=== PATIENT | male | born 1965 | race Caucasian/White ===

== ENCOUNTER → 2018-03-25 19:00 | Outpatient (REF) | payer OTHER, SELFPAY ==
[2018-03-25 21:14] LABS: *AMPHETAMINES SCREEN URINE Negative (Negative); *BARBITURATES SCREEN URINE Negative (Negative); *BENZODIAZEPINES SCREEN URINE Negative (Negative); Cannabinoids THC Negative (Negative); Cocaine Screen,Urine Negative (Negative); METHADONE URINE SCREEN Negative (Negative); OPIATES URINE SCREEN POSITIVE (Negative)
[2018-03-25 21:18] LABS: Tricyclic Antidepressants Negative (Negative)
[2018-03-28 08:40] LABS: Codeine Negative ng/mL (Cutoff: 25); Dihydrocodeine Negative ng/mL (Cutoff: 25); Hydrocodone Negative ng/mL (Cutoff: 25); Hydromorphone Negative ng/mL (Cutoff: 25); Morphine Negative ng/mL (Cutoff: 25); Naloxone Negative ng/mL (Cutoff: 25); Norhydrocodone Negative ng/mL (Cutoff: 25); Noroxycodone 3494 ng/mL (Cutoff: 25); Noroxymorphone 235 ng/mL (Cutoff: 25); Opiates Interpretation Positive.
== END ==
LOC: LBN 19:00
PROVIDERS: PCP Family Medicine; Visit Provider Family Medicine
DX: G89.4 Chronic pain syndrome (principal); F11.20 Opioid dependence, uncomplicated
CPT/HCPCS: 80307; 80361

== ENCOUNTER 2018-07-08 14:20 | Outpatient (CLI) | payer OTHER, SELFPAY ==
[2018-07-08 16:41] LABS: ALT 64 U/L (12-78); AST 27 U/L (15-37); Alkaline Phosphatase 99 U/L (46-116); Anion Gap 10.5 mmol/L (3-11); BUN 30 mg/dL (7-18); Bilirubin, Total 0.4 mg/dL (0.2-1.0); CO2 25.5 mmol/L (21.0-32.0); CREATININE 1.12 mg/dL (0.70-1.30); Calcium 9.1 mg/dL (8.5-10.1); Chloride 102 mmol/L (98-107); Cholesterol 195 mg/dL (50-200); Glucose 157 mg/dL (70-100); HDL Cholesterol 30 mg/dL (40-60); LDL CHOLESTEROL 115 mg/dL (<100); Potassium 4.1 mmol/L (3.5-5.1); Sodium 138 mmol/L (136-145); Total Protein 7.1 g/dL (6.4-8.2); Triglyceride 424 mg/dL (30-150)
[2018-07-11 14:31] LABS: Testosterone, Free 3.95 ng/dL (3.87-14.7); Testosterone, Total 263 ng/dL (240-950)
== END 2018-07-08 14:40 ==
PROVIDERS: PCP Family Medicine; Visit Provider Family Medicine
DX: R74.0 Nonspecific elevation of levels of transaminase and lactic acid dehydrogenase [LDH] (principal); E78.5 Hyperlipidemia, unspecified; F11.90 Opioid use, unspecified, uncomplicated
CPT/HCPCS: 36415; 80053; 80061; 83721; 84402; 84403

== ENCOUNTER 2018-07-24 01:19 | Outpatient (CLI) | payer OTHER, SELFPAY ==
--- NOTE | 2018-07-24 13:50 | MERGE_ITS ---
*[facility]* *[facility]* [address] [place] [address] Date of study: 07/24/2018 Transthoracic Echocardiography M-mode, complete 2D, complete spectral Doppler, and color Doppler *STUDY CONCLUSIONS* Summary: 1. Left ventricle: The cavity size was normal. Systolic function was normal. The estimated ejection fraction was 60-65%. Diastolic parameters were normal for age. There was no evidence of elevated ventricular filling pressure by Doppler parameters. 2. Mitral valve: There was mild regurgitation. 3. Left atrium: The atrium was mildly dilated. 4. Right ventricle: The cavity size was mildly dilated. Systolic function was mildly reduced. 5. Atrial septum: No defect or patent foramen ovale was identified. 6. Pulmonary arteries: Pulmonary systolic pressure was in the range of 15mm Hg to 25mm Hg. 7. Inferior vena cava: The vessel was patent and normal in size. The respirophasic diameter changes were in the normal range (greater than or equal to 50%), consistent with normal central venous pressure. *PATIENT PRESENTATION* Height: 172.7cm ((68in) ) S/D Pressure: 114 / 60 Weight: 95.3kg ((209.6lb) ) BSA: 2.17m^2 Test start time: 01:50 PM. Test stop time: 02:50 PM. ORDERING Rhoda Montes REFERRING Rhoda Montes PERFORMING Unknown PERFORMING [facility] [employer] HELPER RT Sathish (R)(DIVINA), SAEID *PROCEDURE DATA* Procedure information: This study was interpreted by [facility]. Pertinent images and digital data are archived for permanent storage and are available for subsequent review. Study status: Routine. Transthoracic echocardiography. M-mode, complete 2D, complete spectral Doppler, and color Doppler. A Transthoracic Echocardiogram was performed. Scanning was performed from the parasternal, apical, subcostal, and suprasternal notch acoustic windows. Images were obtained using an [id number] cardiac ultrasound machine. Image quality was adequate. Study completion: The patient tolerated the procedure well. History: PMH: SOB *CARDIAC ANATOMY* Left ventricle: The cavity size was normal. Systolic function was normal. The estimated ejection fraction was 60-65%. Diastolic parameters were normal for age. There was no evidence of elevated ventricular filling pressure by Doppler parameters. Aortic valve: Trileaflet. Doppler: There was no stenosis. There was no regurgitation. VTI ratio of LVOT to aortic valve: 0.81. Valve area (VTI): 2.7cm^2. Indexed valve area (VTI): 1.3cm^2/m^2. Peak velocity ratio of LVOT to aortic valve: 0.76. Valve area (Vmax): 2.6cm^2. Indexed valve area (Vmax): 1.2cm^2/m^2. Mean velocity ratio of LVOT to aortic valve: 0.81. Valve area (Vmean): 2.7cm^2. Indexed valve area (Vmean): 1.3cm^2/m^2. Mean gradient (S): 3.7mm Hg. Peak gradient (S): 6.7mm Hg. Aorta: Aortic root: The aortic root was normal in size. Ascending aorta: The ascending aorta was normal in size. Mitral valve: Doppler: There was no evidence for stenosis. There was mild regurgitation. Valve area by pressure half-time: 4.1cm^2. Indexed valve area by pressure half-time: 1.9cm^2/m^2. Peak gradient (D): 2.9mm Hg. Left atrium: The atrium was mildly dilated. Atrial septum: No defect or patent foramen ovale was identified. Right ventricle: The cavity size was mildly dilated. Systolic function was mildly reduced. Pulmonic valve: Doppler: There was no evidence for stenosis. There was no significant regurgitation. Peak gradient (S): 4.2mm Hg. Tricuspid valve: Doppler: There was trivial regurgitation. Pulmonary artery: Poorly visualized. Pulmonary systolic pressure was in the range of 15mm Hg to 25mm Hg. Right atrium: Poorly visualized. Pericardium: There was no pericardial effusion. Systemic veins: Inferior vena cava: Well visualized. The vessel was patent and normal in size. The respirophasic diameter changes were in the normal range (greater than or equal to 50%), consistent with normal central venous pressure. Baseline ECG: with normal AV conduction. Measurements Left ventricle Value 08/08/2016 Reference LV ID, ED, PLAX 5.0 cm 3.5 - 6.0 LV ID, ES, PLAX 3.1 cm 2.1 - 4.0 LV PW thickness, ED, PLAX 1.0 cm --------- LV end-diastolic volume, 87 ml --------- 1-p A2C LV ejection fraction, 1-p 65 % --------- A2C LV end-diastolic volume, 82 ml --------- 1-p A4C LV ejection fraction, 1-p 57 % --------- A4C LV e', lateral 0.082 m/sec --------- LV E/e', lateral 10 --------- LV e', medial 0.098 m/sec --------- LV E/e', medial 9 --------- LV e', average 0.09 m/sec --------- LV E/e', average 9 --------- Ventricular septum Value 08/08/2016 Reference IVS thickness, ED, PLAX 1.1 cm --------- LVOT Value 08/08/2016 Reference LVOT ID, A-P 2.1 cm --------- LVOT area 3.4 cm^2 --------- LVOT peak velocity, S 0.98 m/sec --------- LVOT mean velocity, S 0.73 m/sec --------- LVOT VTI, S 23.5 cm --------- LVOT peak gradient, S 3.9 mm Hg --------- LVOT mean gradient, S 2.4 mm Hg --------- Stroke volume (SV), LVOT DP 79 ml --------- Stroke index (SV/bsa), LVOT 36 ml/m^2 --------- DP Aortic valve Value 08/08/2016 Reference Aortic valve peak velocity, 1.3 m/sec --------- S Aortic valve mean velocity, 0.91 m/sec --------- S Aortic valve VTI, S 29.0 cm --------- Aortic mean gradient, S 3.7 mm Hg 5 --------- Aortic peak gradient, S 6.7 mm Hg 9 --------- VTI ratio, LVOT/AV 0.81 0.68 --------- Aortic valve area, VTI 2.7 cm^2 --------- Velocity ratio, peak, 0.76 --------- LVOT/AV Aortic valve area, peak 2.6 cm^2 --------- velocity Velocity ratio, mean, 0.81 --------- LVOT/AV Aortic valve area, mean 2.7 cm^2 --------- velocity Aortic valve area/bsa, mean 1.3 cm^2/m^2 --------- velocity Aorta Value 08/08/2016 Reference Aortic root ID, ED 3.5 cm --------- Ascending aorta ID, A-P, S 2.7 cm --------- RVOT Value 08/08/2016 Reference RVOT VTI, S 16.1 cm --------- Left atrium Value 08/08/2016 Reference LA ID, A-P, ES 3.7 cm --------- LA ID/bsa, A-P 1.7 cm/m^2 <=2.2 LA area, ES, A2C 21 cm^2 --------- LA volume/bsa, ES, 1-p A4C 39 ml/m^2 35 --------- LA/aortic root ratio 1.06 --------- Mitral valve Value 08/08/2016 Reference Mitral E-wave peak velocity 0.84 m/sec --------- Mitral A-wave peak velocity 0.78 m/sec --------- Mitral deceleration time 186 ms 150 - 230 Mitral pressure half-time 54 ms --------- Mitral peak gradient, D 2.9 mm Hg --------- Mitral E/A ratio, peak 1.08 --------- Mitral valve area, PHT, DP 4.1 cm^2 --------- Pulmonary veins Value 08/08/2016 Reference Pulmonary vein peak 0.47 m/sec --------- velocity, S Pulmonary vein peak 0.43 m/sec --------- velocity, D Pulmonary vein velocity 1.09 --------- ratio, peak, S/D Pulmonary vein A-wave 0.33 m/sec --------- reversal peak velocity Tricuspid valve Value 08/08/2016 Reference Tricuspid regurg peak 2.6 m/sec --------- velocity Tricuspid peak RV-RA 27.5 mm Hg --------- gradient Pulmonic valve Value 08/08/2016 Reference Pulmonic peak gradient, S 4.2 mm Hg --------- Legend: (L) and (H) lillian values outside specified reference range. I have personally reviewed the images and have reviewed and edited the reported findings. Electronically signed by Jc Polo MD 07/24/2018 16:13
== END 2018-07-24 01:39 ==
PROVIDERS: PCP Family Medicine; Visit Provider Family Medicine
DX: R06.02 Shortness of breath (principal); I34.0 Nonrheumatic mitral (valve) insufficiency; I51.9 Heart disease, unspecified
CPT/HCPCS: 93306

== ENCOUNTER 2018-12-05 20:04 | Emergency (ER) | payer OTHER, SELFPAY ==
[2018-12-05 20:10] VITALS: BP 97/51; PULSE 87; RESP 20; TEMP 37.3; O2SAT 94
--- NOTE | 2018-12-05 20:40 | DI.RAD_ITS ---
SYMPTOMS/DIAGNOSIS: PAIN, LATERAL ANKLE INJURY RIGHT ANKLE: Three views. There is an oblique fracture seen at the distal metadiaphyseal junction of the right fibula. The fracture appears to lie almost 2 cm above the ankle joint. Minimal lateral displacement of the distal fracture is noted. No other fracture or dislocation is seen. There is mild soft tissue swelling about the ankle laterally. The bones are normally mineralized. IMPRESSION: Minimally displaced distal right fibular fracture as described.
--- NOTE | 2018-12-05 20:47 | DI.VRAD_ITS ---
EXAM: XR Right Ankle Complete, 3 or more Views EXAM DATE/TIME: 12/05/2018 8:28 PM CLINICAL HISTORY: 53 years old, male; Injury or trauma; Fall; Initial encounter; Swelling (edema); Right; Injury date: 12/05/2018; Injury details: Slipped in the mud, twisted the ankle TECHNIQUE: Imaging protocol: XR Right ankle. Views: 3 or more views. COMPARISON: No relevant prior studies available. FINDINGS: Bones/joints: There is an oblique fracture of the distal right fibula centered about 5 cm above the tip of the lateral malleolus, with slight 2 mm lateral displacement of the distal fragment but no angulation. Distal tibia intact. Talar dome intact. No ankle joint effusion. The visualized midfoot and hindfoot are intact. Soft tissues: Moderate lateral soft tissue swelling at the ankle. IMPRESSION: 1. Oblique minimally displaced fracture of the distal right fibular diaphysis. 2. Lateral soft tissue swelling. Dictated and Authenticated by: Trino Villeda MD. Ordering:BELLA Peralta MD
--- NOTE | 2018-12-05 21:36 | ED.GENADUL_ITS ---
Discharge Plan Disposition Patient Disposition: HOME Condition: Stable Discharge Details Chief Complaint: Laceration Clinical Impression: Fracture of distal end of right fibula, Laceration of finger of left hand Primary Care Provider: Rhoda Montes ED Provider: Fabian Pérez Home Meds and New Rx's Prescriptions: Continued aspirin 81 mg tablet,delayed release (DR/EC) 81 mg PO DAILY RF: 0 atorvastatin 80 mg tablet 80 mg PO HS Qty: 90 RF: 12 duloxetine [Cymbalta] 60 mg capsule,delayed release(DR/EC) 60 mg PO DAILY Qty: 90 RF: 12 isosorbide mononitrate 30 mg tablet extended release 24 hr 30 mg PO DAILY Qty: 90 RF: 12 metaxalone 800 mg tablet 800 mg PO TID Qty: 90 RF: 12 oxycodone-acetaminophen [Endocet] 10-325 mg tablet 1 tab PO QID MDD 4 Qty: 106 RF: 0 NARCOTIC CONTRACT RF: 0 nitroglycerin 0.4 MG tablet, sublingual 0.4 mg Sublingual PRN PRNQty: 25 RF: 12 lisinopril-hydrochlorothiazide 1 EACH tablet 1 tab-cap PO DAILY Qty: 90 RF: 12 potassium chloride 20 mEq tablet,ER particles/crystals 40 meq PO BID Qty: 360 RF: 12 metoprolol succinate 50 mg tablet extended release 24 hr 50 mg PO DAILY Qty: 90 RF: 1 Discharge Instructions Instructions: Leg Fracture (ED), Finger Laceration (ED) Additional Instructions: Please keep walking boot on at all times and remain nonweightbearing for the next 3 days. Call the orthopedic office on Saturday for arrangement of follow-up appointment and further treatment as needed Stand Alone Forms: Work Release Referrals: Js Garcia MD [ [facility] STAFF PHYSICIAN] - (Call the office on Saturday for arrangement of follow appointment. ) Discharge Data Discharge Date/Time-TO BE ENTERED AT DEPARTURE: 12/05/18 21:46 Medical Decision Making Patient presenting to the emergency department for chief complaint of right ankle injury. 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 He reports that he felt a significant pop to the lateral aspect of his leg. Afterwards he was unable to bear weight. Physical exam does show distal fibular deformity with swelling and tenderness to the distal fibular and the lateral malleolus. Patient does state prior to this he had cut his left index finger with a knife. His left index finger has full range of motion normal cap refill normal sensation but a 1 cm laceration above the PIP. Tetanus was greater than 5 years ago and given that patient was butchering pigs I do feel that giving patient tetanus is appropriate and one was ordered. Radiological imaging was ordered for the ankle. Patient denied any need for pain medication at this time. Pending radiological imaging patient consented to wound repair. See procedure note for wound repair. Three 4-0 Ethilon sutures were used. Review of radiological imaging shows a minimally displaced distal fibular fracture. Patient reassessed and continues to state no other discomfort to the proximal tibia or fibula and no other bony tenderness was noted except to the distal fibula. Patient placed in a walking boot and informed he should be nonweightbearing until speaking with orthopedist. Patient states he has crutches so patient fitted with walking boot. Patient already on narcotic pain medication and states no other need for other pain medication. Given work note to excuse him for work for the next week. Return precautions were discussed. Patient placed upon Ortho follow-up list for review of imaging and patient states understanding to call the office on Saturday for arrangement of follow-up appointment and any further instructions pending reassessment. After discussion of diagnosis and plan of care patient has no further needs, questions, or concerns and states clear understanding to return to the emergency department for any worsening symptoms. HPI General Mode of arrival: wheelchair . Date/Time Provider Initiated Documentation: 12/05/18 20:11 . Limitations to Documentation: no limitations . Information obtained by: patient, family and RN notes reviewed . History of Present Illness 53 year old M presents to the emergency department with the chief complaint of right ankle injury, described as moderate, Patient started experiencing this hour(s) (1) and it has been constant. No relieving factors improve symptom(s), Patient did receive the following treatments prior to arrival, none Related Data Home Medications Medication Instructions Recorded Confirmed Narcotic Contract 06/23/13 09/30/18 nitroglycerin 0.4 mg SUBLINGUAL PRN PRN #25 12/18/16 12/07/18 tab-cap lisinopril-hydrochlorothiazide 1 tab-cap PO DAILY #90 tab-cap 03/25/18 12/07/18 aspirin 81 mg tablet,delayed 81 mg PO DAILY 07/07/18 12/07/18 release atorvastatin 80 mg tablet 80 mg PO HS #90 tab-cap 07/07/18 12/07/18 duloxetine 60 mg capsule,delayed 60 mg PO DAILY #90 tab-cap 07/07/18 12/07/18 release isosorbide mononitrate ER 30 mg 30 mg PO DAILY #90 tab 07/07/18 12/07/18 tablet,extended release 24 hr metaxalone 800 mg tablet 800 mg PO TID #90 tab-cap 07/07/18 12/07/18 oxycodone-acetaminophen 10 mg-325 1 tab PO QID #106 tab MDD 4 09/30/18 12/07/18 mg tablet potassium chloride ER 20 mEq 40 meq PO BID #360 tab-cap 10/28/18 12/07/18 tablet,extended release(part/cryst) metoprolol succinate ER 50 mg 50 mg PO DAILY #90 tab 11/20/18 12/07/18 tablet,extended release 24 hr Previous Rx's Medication Instructions Recorded lisinopril-hydrochlorothiazide 1 tab-cap PO DAILY #90 tab-cap 03/25/18 atorvastatin 80 mg tablet 80 mg PO HS #90 tab-cap 07/07/18 duloxetine 60 mg capsule,delayed 60 mg PO DAILY #90 tab-cap 07/07/18 release isosorbide mononitrate ER 30 mg 30 mg PO DAILY #90 tab 07/07/18 tablet,extended release 24 hr metaxalone 800 mg tablet 800 mg PO TID #90 tab-cap 07/07/18 oxycodone-acetaminophen 10 mg-325 1 tab PO QID #106 tab MDD 4 09/30/18 mg tablet potassium chloride ER 20 mEq 40 meq PO BID #360 tab-cap 10/28/18 tablet,extended release(part/cryst) metoprolol succinate ER 50 mg 50 mg PO DAILY #90 tab 11/20/18 tablet,extended release 24 hr Allergies Allergy/AdvReac Type Severity Reaction Status Date / Time ibuprofen AdvReac Hematuria Unverified 12/07/18 02:48 General Stated Complaint: Orthopedic YAMILE: 4 Review of Systems Cardiovascular Denies syncope Musculoskeletal Reports as per HPI, Reports numbness (mild) and Denies tingling Integumentary/Breasts Denies rash, Denies sores and Reports wounds (left index finger laceration) Neurologic Denies syncope, Reports numbness (mild) and Denies tingling PFSH Medical History Polyp of colon (Chronic 08/28/13) Impaired fasting glucose (Chronic 11/10/03) Hyperlipidemia (Chronic 11/10/03) Essential hypertension (Chronic 06/09/13) Elev transaminase/LDH (Chronic 05/11/03) Depressive disorder (Chronic 10/04/08) Degeneration of cervical intervertebral disc (Chronic 09/11/02) Chronic pain syndrome (Chronic 03/27/12) Chronic obstructive lung disease (Chronic 06/11/99) Chest pain on exertion (Resolved 07/20/16) COPD (chronic obstructive pulmonary disease) Chronic pain syndrome Degeneration of cervical intervertebral disc HTN (hypertension) Surgical History Colonoscopy - MAC (01/25/17) FINGER REPAIR (~2010) KNEE REPAIR (~1981) Repair of inguinal hernia (~1978) Family History Mother Diabetes Personal history of malignant neoplasm Heart disease Hyperlipidemia Stroke Father Heart disease Hyperlipidemia Sister No problems noted. Sister No problems noted. Sister No problems noted. Brother No problems noted. Grandfather Heart disease Grandfather Heart disease Grandmother Heart disease Stroke Grandmother Heart disease Stroke Social History Smoking/Tobacco Use Status: Former Tobacco Use Alcohol Intake: never Drug use: Current Sobriety Substance use type: does not use Do you feel safe at home: Yes Do you feel safe in your relationship?: Yes Exam Const General: cooperative and no acute distress Orientation: alert, awake and oriented x3 Resp Effort & Inspection: normal respiratory effort and able to speak in complete sentences Cardio Rate: regular rate Rhythm: regular rhythm Extrem Left upper extremity: hand Details: normal capillary refill, neuromotor exam normal, neurosensory exam normal, tendon exam normal, normal ROM of fingers and laceration (1 cm over PIP) Right lower extremity: knee Details: normal to inspection and normal ROM; no tenderness, lower leg Details: deformity Location: of the distal lower leg (fib saeid), ankle Details: tenderness Location: of the lateral malleolus, swelling Details: laterally and abnormal ROM Details: pain with active ROM and with range as follows (No movement to medial or lateral, dorsiflexion plantarflexion normal); no lacerations and no ecchymosis and foot Details: normal capillary refill (3 sec), normal to inspection, toes with normal ROM and vascular exam Details: dorsalis pedis pulse present and posterior tibial pulse present; no tenderness Course Vital Signs Temperature 37.3 C 12/05/18 20:10 Pulse 87 12/05/18 20:10 Respiratory Rate 20 12/05/18 20:10 Blood Pressure 97/51 L 12/05/18 20:10 Pulse Oximetry 94 L 12/05/18 20:10 Temperature 37.3 C 12/05/18 20:10 Temperature Source Temporal Artery Scan 12/05/18 20:10 Pulse 87 12/05/18 20:10 Respiratory Rate 20 12/05/18 20:10 Respiratory Effort Non-Labored 12/05/18 20:10 Blood Pressure 97/51 L 12/05/18 20:10 Blood Pressure Position Sitting 12/05/18 20:10 Pulse Oximetry 94 L 12/05/18 20:10 Oxygen Delivery Method Room Air 12/05/18 20:10 Oxygen Flow Rate 0 12/05/18 20:10 Pain Level 3 12/05/18 20:20 Procedures Laceration left index: Site: hand (index finger) Side (If applicable): left Size (cm): 1 Description: linear and clean Depth: simple, single layer Local Anesthetic: Lidocaine 1% (digital block) Amount of anesthesia used (mL): 4 Pre-repair: wound explored, irrigated extensively and deep structures intact Skin layer closed with: nylon Size (cm): 4-0 Number of sutures: 3 Technique: simple, interrupted
[2018-12-07 05:58] VITALS: BP 140/82; PULSE 91; RESP 20; O2SAT 95
== END 2018-12-05 21:46 | disposition home or self-care (01) ==
PROVIDERS: Emergency Provider Nurse Practitioner Family; PCP Family Medicine
DX: S82.491A Other fracture of shaft of right fibula, initial encounter for closed fracture (principal); X50.9XXA Other and unspecified overexertion or strenuous movements or postures, initial encounter; S61.211A Laceration without foreign body of left index finger without damage to nail, initial encounter; W26.0XXA Contact with knife, initial encounter; I10 Essential (primary) hypertension; J44.9 Chronic obstructive pulmonary disease, unspecified; Z87.891 Personal history of nicotine dependence
CPT/HCPCS: 12001; 27786; 90471; 73610; L4361

== ENCOUNTER 2018-12-07 02:28 | Emergency (ER) | payer OTHER, SELFPAY ==
--- NOTE | 2018-12-07 02:45 | DI.RAD_ITS ---
SYMPTOMS/DIAGNOSIS: PAIN, S/P FALL YESTERDAY RIGHT KNEE: Three views. There are moderate degenerative changes seen about the right knee, particularly the patellofemoral joint. There are osseous fragments seen about the patella particularly inferiorly which may reflect old injury. There is a small suprapatellar joint effusion. Vascular calcifications are seen in the soft tissues. IMPRESSION: 1. No acute fracture or dislocation. 2. Small joint effusion. 3. Moderate degenerative changes and probable post traumatic changes about the right knee.
[2018-12-07 02:46] VITALS: BP 128/63; PULSE 93; RESP 24; TEMP 37.1; O2SAT 97
--- NOTE | 2018-12-07 02:46 | W.ED.GENAD ---
Discharge Plan Disposition Patient Disposition: [facility] Condition: Stable Discharge Details Chief Complaint: Orthopedic Clinical Impression: Fracture of right fibula Primary Care Provider: Rhoda Montes ED Provider: Jc Zhu Home Meds and New Rx's Prescriptions: No Action aspirin 81 mg tablet,delayed release (DR/EC) 81 mg PO DAILY RF: 0 atorvastatin 80 mg tablet 80 mg PO HS Qty: 90 RF: 12 duloxetine [Cymbalta] 60 mg capsule,delayed release(DR/EC) 60 mg PO DAILY Qty: 90 RF: 12 isosorbide mononitrate 30 mg tablet extended release 24 hr 30 mg PO DAILY Qty: 90 RF: 12 metaxalone 800 mg tablet 800 mg PO TID Qty: 90 RF: 12 oxycodone-acetaminophen [Endocet] 10-325 mg tablet 1 tab PO QID MDD 4 Qty: 106 RF: 0 NARCOTIC CONTRACT RF: 0 nitroglycerin 0.4 MG tablet, sublingual 0.4 mg Sublingual PRN PRNQty: 25 RF: 12 lisinopril-hydrochlorothiazide 1 EACH tablet 1 tab-cap PO DAILY Qty: 90 RF: 12 potassium chloride 20 mEq tablet,ER particles/crystals 40 meq PO BID Qty: 360 RF: 12 metoprolol succinate 50 mg tablet extended release 24 hr 50 mg PO DAILY Qty: 90 RF: 1 Medical Decision Making 53 yo male who was seen on 12/05 and dx'd with a right distal fibula fracture comes in with increasing pain in his knee. He has been wearing a walking boot since and due to the increasing pain despite prescribed oxycodone from pcp has had pain so came here. He does have noted swelling of the right knee with pain to palpation to the medial joint line. He has no significant swelling of the calf and no calf tenderness, and 2+ dp/pt pulses. Will xray the knee to evaluate for fx xray negative on my read, given location of pain and degree of pain will obtain CT to eval for tibial plateua fx still waiting for radiology reports but pt despite 4mg of dilaudid im is still in significant amount of pain and does have pain with passive dorsiflexion of the ankle and does have some numbness of the lateral aspect of the lower leg. 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 Still no rashes or crepitus on exam Contacted [facility] again and they are going to repage orthopedics for a consult Spoke with Dr. Pittman from ortho and will see pt in their ED for an evaluation. Dr. Mcdonald from the ED is the accepting provider in transfer. Pt remains in significant pain. I did advise the pt that if ortho felt this wasn't compartment syndrome he would likely be d/c'd and and pt understand this. All pt's questions answered prior to transfer Differential Diagnosis acl injury, tibial plateu fx HPI General Mode of arrival: wheelchair. Date/Time Provider Initiated Documentation: 12/07/18 02:33. Limitations to Documentation: no limitations. Information obtained by: patient. History of Present Illness 53 year old M presents to the emergency department with the chief complaint of right knee pain, described as severe, Quality is described as stabbing, and is localized to the right and lower extremity. Patient started experiencing this day(s) (1) and it has been constant. No relieving factors improve symptom(s), No exacerbating factors reported . Related Data Home Medications Medication Instructions Recorded Confirmed Narcotic Contract 06/23/13 09/30/18 nitroglycerin 0.4 mg SUBLINGUAL PRN PRN #25 12/18/16 12/05/18 tab-cap lisinopril-hydrochlorothiazide 1 tab-cap PO DAILY #90 tab-cap 03/25/18 12/05/18 aspirin 81 mg tablet,delayed 81 mg PO DAILY 07/07/18 12/05/18 release atorvastatin 80 mg tablet 80 mg PO HS #90 tab-cap 07/07/18 12/05/18 duloxetine 60 mg capsule,delayed 60 mg PO DAILY #90 tab-cap 07/07/18 12/05/18 release isosorbide mononitrate ER 30 mg 30 mg PO DAILY #90 tab 07/07/18 12/05/18 tablet,extended release 24 hr metaxalone 800 mg tablet 800 mg PO TID #90 tab-cap 07/07/18 12/05/18 oxycodone-acetaminophen 10 mg-325 1 tab PO QID #106 tab MDD 4 09/30/18 12/05/18 mg tablet potassium chloride ER 20 mEq 40 meq PO BID #360 tab-cap 10/28/18 12/05/18 tablet,extended release(part/cryst) metoprolol succinate ER 50 mg 50 mg PO DAILY #90 tab 11/20/18 12/05/18 tablet,extended release 24 hr Previous Rx's Medication Instructions Recorded lisinopril-hydrochlorothiazide 1 tab-cap PO DAILY #90 tab-cap 03/25/18 atorvastatin 80 mg tablet 80 mg PO HS #90 tab-cap 07/07/18 duloxetine 60 mg capsule,delayed 60 mg PO DAILY #90 tab-cap 07/07/18 release isosorbide mononitrate ER 30 mg 30 mg PO DAILY #90 tab 07/07/18 tablet,extended release 24 hr metaxalone 800 mg tablet 800 mg PO TID #90 tab-cap 07/07/18 oxycodone-acetaminophen 10 mg-325 1 tab PO QID #106 tab MDD 4 09/30/18 mg tablet potassium chloride ER 20 mEq 40 meq PO BID #360 tab-cap 10/28/18 tablet,extended release(part/cryst) metoprolol succinate ER 50 mg 50 mg PO DAILY #90 tab 11/20/18 tablet,extended release 24 hr Allergies Allergy/AdvReac Type Severity Reaction Status Date / Time ibuprofen AdvReac Hematuria Unverified 12/07/18 02:48 General YAMILE: 4 Review of Systems Review of Systems All systems reviewed & are unremarkable except as noted in HPI and below Constitutional Denies chills, Denies fever(s) and Denies weakness Cardiovascular Denies chest pain and Denies dyspnea Respiratory Denies cough and Denies dyspnea Gastrointestinal Denies abdominal pain, Denies nausea and Denies vomiting Integumentary/Breasts Denies rash Neurologic Denies weakness [facility] Medical History Polyp of colon (Chronic 08/28/13) Impaired fasting glucose (Chronic 11/10/03) Hyperlipidemia (Chronic 11/10/03) Essential hypertension (Chronic 06/09/13) Elev transaminase/LDH (Chronic 05/11/03) Depressive disorder (Chronic 10/04/08) Degeneration of cervical intervertebral disc (Chronic 09/11/02) Chronic pain syndrome (Chronic 03/27/12) Chronic obstructive lung disease (Chronic 06/11/99) Chest pain on exertion (Resolved 07/20/16) COPD (chronic obstructive pulmonary disease) Chronic pain syndrome Degeneration of cervical intervertebral disc HTN (hypertension) Surgical History Colonoscopy - MAC (01/25/17) FINGER REPAIR (~2010) KNEE REPAIR (~1981) Repair of inguinal hernia (~1978) Family History Mother Diabetes Personal history of malignant neoplasm Heart disease Hyperlipidemia Stroke Father Heart disease Hyperlipidemia Sister No problems noted. Sister No problems noted. Sister No problems noted. Brother No problems noted. Grandfather Heart disease Grandfather Heart disease Grandmother Heart disease Stroke Grandmother Heart disease Stroke Social History Smoking/Tobacco Use Status: Former Tobacco Use Alcohol Intake: never Drug use: Current Sobriety Substance use type: does not use Do you feel safe at home: Yes Do you feel safe in your relationship?: Yes Exam Const General: no acute distress Orientation: alert HENMT Head: normal to inspection Ears: external ears normal General nose exam: external nose normal Mouth: moist mucous membranes Eyes General: appearance normal, both eyes and all related structures Neck Neck: normal visual inspection Resp Effort & Inspection: normal respiratory effort and able to speak in complete sentences Cardio Rate: regular rate Skin General skin exam: no rashes or lesions noted Neuro General: alert and oriented x3 Extrem General: normal capillary refill Psych Mental Status: mental status grossly normal
--- NOTE | 2018-12-07 02:49 | ED.GENADUL_ITS ---
Discharge Plan Disposition Patient Disposition: [facility] Condition: Stable Discharge Details Chief Complaint: Orthopedic Clinical Impression: Fracture of right fibula Primary Care Provider: Rhoda Montes ED Provider: Jc Zhu Home Meds and New Rx's Prescriptions: No Action aspirin 81 mg tablet,delayed release (DR/EC) 81 mg PO DAILY RF: 0 atorvastatin 80 mg tablet 80 mg PO HS Qty: 90 RF: 12 duloxetine [Cymbalta] 60 mg capsule,delayed release(DR/EC) 60 mg PO DAILY Qty: 90 RF: 12 isosorbide mononitrate 30 mg tablet extended release 24 hr 30 mg PO DAILY Qty: 90 RF: 12 metaxalone 800 mg tablet 800 mg PO TID Qty: 90 RF: 12 oxycodone-acetaminophen [Endocet] 10-325 mg tablet 1 tab PO QID MDD 4 Qty: 106 RF: 0 NARCOTIC CONTRACT RF: 0 nitroglycerin 0.4 MG tablet, sublingual 0.4 mg Sublingual PRN PRNQty: 25 RF: 12 lisinopril-hydrochlorothiazide 1 EACH tablet 1 tab-cap PO DAILY Qty: 90 RF: 12 potassium chloride 20 mEq tablet,ER particles/crystals 40 meq PO BID Qty: 360 RF: 12 metoprolol succinate 50 mg tablet extended release 24 hr 50 mg PO DAILY Qty: 90 RF: 1 Medical Decision Making 53 yo male who was seen on 12/05 and dx'd with a right distal fibula fracture comes in with increasing pain in his knee. He has been wearing a walking boot since and due to the increasing pain despite prescribed oxycodone from pcp has had pain so came here. He does have noted swelling of the right knee with pain to palpation to the medial joint line. He has no significant swelling of the calf and no calf tenderness, and 2+ dp/pt pulses. Will xray the knee to evaluate for fx xray negative on my read, given location of pain and degree of pain will obtain CT to eval for tibial plateua fx still waiting for radiology reports but pt despite 4mg of dilaudid im is still in significant amount of pain and does have pain with passive dorsiflexion of the ankle and does have some numbness of the lateral aspect of the lower leg. Given degree of pain he is having will consult [place] [facility] [place] as we do not have orthopedics balloon maker here today still waiting for orthopedics, no relief of pain with the patient. Still no rashes or crepitus on exam Contacted [facility] again and they are going to repage orthopedics for a consult Spoke with Dr. Pittman from ortho and will see pt in their ED for an evaluation. Dr. Mcdonald from the ED is the accepting provider in transfer. Pt remains in significant pain. I did advise the pt that if ortho felt this wasn't compartment syndrome he would likely be d/c'd and and pt understand this. All pt's questions answered prior to transfer Differential Diagnosis acl injury, tibial plateu fx HPI General Mode of arrival: wheelchair . Date/Time Provider Initiated Documentation: 12/07/18 02:33 . Limitations to Documentation: no limitations . Information obtained by: patient . History of Present Illness 53 year old M presents to the emergency department with the chief complaint of right knee pain, described as severe, Quality is described as stabbing, and is localized to the right and lower extremity. Patient started experiencing this day(s) (1) and it has been constant. No relieving factors improve symptom(s), No exacerbating factors reported . Related Data Home Medications Medication Instructions Recorded Confirmed Narcotic Contract 06/23/13 09/30/18 nitroglycerin 0.4 mg SUBLINGUAL PRN PRN #25 12/18/16 12/05/18 tab-cap lisinopril-hydrochlorothiazide 1 tab-cap PO DAILY #90 tab-cap 03/25/18 12/05/18 aspirin 81 mg tablet,delayed 81 mg PO DAILY 07/07/18 12/05/18 release atorvastatin 80 mg tablet 80 mg PO HS #90 tab-cap 07/07/18 12/05/18 duloxetine 60 mg capsule,delayed 60 mg PO DAILY #90 tab-cap 07/07/18 12/05/18 release isosorbide mononitrate ER 30 mg 30 mg PO DAILY #90 tab 07/07/18 12/05/18 tablet,extended release 24 hr metaxalone 800 mg tablet 800 mg PO TID #90 tab-cap 07/07/18 12/05/18 oxycodone-acetaminophen 10 mg-325 1 tab PO QID #106 tab MDD 4 09/30/18 12/05/18 mg tablet potassium chloride ER 20 mEq 40 meq PO BID #360 tab-cap 10/28/18 12/05/18 tablet,extended release(part/cryst) metoprolol succinate ER 50 mg 50 mg PO DAILY #90 tab 11/20/18 12/05/18 tablet,extended release 24 hr Previous Rx's Medication Instructions Recorded lisinopril-hydrochlorothiazide 1 tab-cap PO DAILY #90 tab-cap 03/25/18 atorvastatin 80 mg tablet 80 mg PO HS #90 tab-cap 07/07/18 duloxetine 60 mg capsule,delayed 60 mg PO DAILY #90 tab-cap 07/07/18 release isosorbide mononitrate ER 30 mg 30 mg PO DAILY #90 tab 07/07/18 tablet,extended release 24 hr metaxalone 800 mg tablet 800 mg PO TID #90 tab-cap 07/07/18 oxycodone-acetaminophen 10 mg-325 1 tab PO QID #106 tab MDD 4 09/30/18 mg tablet potassium chloride ER 20 mEq 40 meq PO BID #360 tab-cap 10/28/18 tablet,extended release(part/cryst) metoprolol succinate ER 50 mg 50 mg PO DAILY #90 tab 11/20/18 tablet,extended release 24 hr Allergies Allergy/AdvReac Type Severity Reaction Status Date / Time ibuprofen AdvReac Hematuria Unverified 12/07/18 02:48 General YAMILE: 4 Review of Systems Review of Systems All systems reviewed & are unremarkable except as noted in HPI and below Constitutional Denies chills, Denies fever(s) and Denies weakness Cardiovascular Denies chest pain and Denies dyspnea Respiratory Denies cough and Denies dyspnea Gastrointestinal Denies abdominal pain, Denies nausea and Denies vomiting Integumentary/Breasts Denies rash Neurologic Denies weakness [facility] Medical History Polyp of colon (Chronic 08/28/13) Impaired fasting glucose (Chronic 11/10/03) Hyperlipidemia (Chronic 11/10/03) Essential hypertension (Chronic 06/09/13) Elev transaminase/LDH (Chronic 05/11/03) Depressive disorder (Chronic 10/04/08) Degeneration of cervical intervertebral disc (Chronic 09/11/02) Chronic pain syndrome (Chronic 03/27/12) Chronic obstructive lung disease (Chronic 06/11/99) Chest pain on exertion (Resolved 07/20/16) COPD (chronic obstructive pulmonary disease) Chronic pain syndrome Degeneration of cervical intervertebral disc HTN (hypertension) Surgical History Colonoscopy - MAC (01/25/17) FINGER REPAIR (~2010) KNEE REPAIR (~1981) Repair of inguinal hernia (~1978) Family History Mother Diabetes Personal history of malignant neoplasm Heart disease Hyperlipidemia Stroke Father Heart disease Hyperlipidemia Sister No problems noted. Sister No problems noted. Sister No problems noted. Brother No problems noted. Grandfather Heart disease Grandfather Heart disease Grandmother Heart disease Stroke Grandmother Heart disease Stroke Social History Smoking/Tobacco Use Status: Former Tobacco Use Alcohol Intake: never Drug use: Current Sobriety Substance use type: does not use Do you feel safe at home: Yes Do you feel safe in your relationship?: Yes Exam Const General: no acute distress Orientation: alert HENMT Head: normal to inspection Ears: external ears normal General nose exam: external nose normal Mouth: moist mucous membranes Eyes General: appearance normal, both eyes and all related structures Neck Neck: normal visual inspection Resp Effort & Inspection: normal respiratory effort and able to speak in complete sentences Cardio Rate: regular rate Skin General skin exam: no rashes or lesions noted Neuro General: alert and oriented x3 Extrem General: normal capillary refill Psych Mental Status: mental status grossly normal
[2018-12-07] MEDS: HYDROmorphone 2 MG/ML VIAL IM ×2 (02:53→04:13)
--- NOTE | 2018-12-07 03:05 | DI.CT_ITS ---
SYMPTOMS/DIAGNOSIS: PAIN, S/P FALL CT SCAN OF THE RIGHT KNEE: Multiple contiguous axial images of the right knee were obtained. Sagittal and coronal reformatted images were evaluated on the Siemens workstation. No acute fracture or dislocation of the right knee is identified. There are moderate degenerative changes seen about the right knee. There are several well corticated osseous fragments seen around the patella likely reflecting prior injury. There is a small joint effusion present.
--- NOTE | 2018-12-07 04:12 | DI.VRAD_ITS ---
EXAM: CT Right Lower Extremity Without Contrast, Knee EXAM DATE/TIME: 12/07/2018 3:07 AM CLINICAL HISTORY: 53 years old, male; Pain; Knee; Right; Patient HX: Twisting injury 12/06 TECHNIQUE: Imaging protocol: CT of the Right lower extremity without contrast was performed. Exam focused on the knee. Coronal and sagittal reformatted images were created and reviewed. COMPARISON: CR XR knee RT 3V AP,lat,mayank 12/07/2018 3:01 AM FINDINGS: Bones/joints: Small knee joint effusion. Chondrocalcinosis. Moderate degenerative change. Abnormal appearance to the patella with multiple bone fragments around it may be from prior trauma. Soft tissues: Unremarkable.. IMPRESSION: No evidence of acute fracture. Knee joint effusion. Moderate degenerative changes. Dictated and Authenticated by: Kit Mayorga MD. Ordering:KASIA Greene MD
--- NOTE | 2018-12-07 04:13 | DI.VRAD_ITS ---
EXAM: XR Right Knee, 3 Views EXAM DATE/TIME: 12/07/2018 2:46 AM CLINICAL HISTORY: 53 years old, male; Knee; Right; Patient HX: Pain after twisting injury 12/06 TECHNIQUE: Imaging protocol: XR Right knee. Views: 3 views. COMPARISON: No relevant prior studies available. FINDINGS: Bones/joints: Moderate degenerative change. Old patella fracture deformity. Knee joint effusion. No evidence of acute fracture. Soft tissues: Unremarkable. IMPRESSION: Moderate degenerative change. Knee joint effusion. Dictated and Authenticated by: Kit Mayorga MD. Ordering:KASIA Greene MD
[2018-12-07 04:38] VITALS: BP 125/80; PULSE 97; RESP 20; O2SAT 94
[2018-12-07 04:41] VITALS: BP 125/80; PULSE 97; RESP 20
--- NOTE | 2018-12-07 04:41 | NUR.NOTE ---
Nursing Note: patient repositioned to right side, resting comfortably at present. with patient.
[2018-12-07 05:18] VITALS: BP 140/82; PULSE 91; RESP 20; TEMP 37.5; O2SAT 95
== END 2018-12-07 05:42 | disposition short-term general hospital (02) ==
PROVIDERS: Emergency Provider Emergency Medicine; PCP Family Medicine
DX: S82.831A Other fracture of upper and lower end of right fibula, initial encounter for closed fracture (principal); M25.461 Effusion, right knee; W01.0XXA Fall on same level from slipping, tripping and stumbling without subsequent striking against object, initial encounter; I10 Essential (primary) hypertension; M17.9 Osteoarthritis of knee, unspecified; J44.9 Chronic obstructive pulmonary disease, unspecified; Z87.891 Personal history of nicotine dependence
CPT/HCPCS: 29515; 73562; 96372; 99285; 73700; 99284; L1830

== ENCOUNTER 2018-12-15 09:05 | Outpatient (CLI) | payer OTHER, SELFPAY ==
--- NOTE | 2018-12-15 08:59 | DI.RAD_ITS ---
SYMPTOM/DIAGNOSIS: F/U FX RIGHT ANKLE: Three views were obtained. The previously described fracture of the distal fibula again noted, no gross interval change in alignment in comparison with examination of 12/05 and the fracture fragments remain minimally displaced.
== END 2018-12-15 09:25 ==
PROVIDERS: PCP Family Medicine; Visit Provider Student in an Organized Health Care Education/Training Program
DX: S82.831D Other fracture of upper and lower end of right fibula, subsequent encounter for closed fracture with routine healing (principal)
CPT/HCPCS: 73610

== ENCOUNTER 2019-01-07 08:39 | Outpatient (CLI) | payer OTHER, SELFPAY ==
--- NOTE | 2019-01-07 08:35 | DI.RAD_ITS ---
SYMPTOM/DIAGNOSIS: F/U FX RIGHT ANKLE: There has been no change in the apposition or alignment of the distal fibular fracture. Blurring of the fracture line and early callous formation is demonstrated and there is nothing to suggest that healing is not progressing satisfactorily at the present time.
== END 2019-01-07 08:59 ==
PROVIDERS: PCP Family Medicine; Visit Provider Student in an Organized Health Care Education/Training Program
DX: S82.831D Other fracture of upper and lower end of right fibula, subsequent encounter for closed fracture with routine healing (principal)
CPT/HCPCS: 73610

== ENCOUNTER 2019-02-04 09:36 | Outpatient (CLI) | payer OTHER, SELFPAY ==
--- NOTE | 2019-02-04 09:33 | DI.RAD_ITS ---
SYMPTOMS/DIAGNOSIS: RT LATERAL MALLEOLUS FRACTURE RIGHT ANKLE: Three views were obtained and show previously described fracture of the distal fibula which appears to be healing with no change in alignment in comparison with examination of 01/07.
== END 2019-02-04 09:56 ==
PROVIDERS: PCP Family Medicine; Visit Provider Student in an Organized Health Care Education/Training Program
DX: S82.831D Other fracture of upper and lower end of right fibula, subsequent encounter for closed fracture with routine healing (principal)
CPT/HCPCS: 73610

== ENCOUNTER 2019-02-17 02:10 | Outpatient (CLI) | payer OTHER, SELFPAY ==
[2019-02-17 11:10] LABS: HCT 45.5 % (40.0-50.0); HGB 15.2 g/dL (13.5-17.5); Mean Corp. HGB Concentration 33.4 g/dL (32.0-36.0); Mean Corpuscular Hemoglobin 30.8 pg (27.0-33.0); Mean Corpuscular Volume 92.1 fL (80-95); Mean Platelet Volume 10.8 fL (8.0-11.0); Platelet Count 266 x1000/uL (130-400); RBC 4.94 m/cumm (4.50-6.00); RBC Distribution Width 13.1 % (11.8-14.1); White Blood Cell Count 8.85 k/cumm (4.4-10.8)
[2019-02-17 11:29] LABS: Hemoglobin A1C 6.2 % (4.5-6.2)
[2019-02-17 12:59] LABS: ALT 49 U/L (12-78); AST 21 U/L (15-37); Albumin 3.8 g/dL (3.4-5.0); Alkaline Phosphatase 103 U/L (46-116); Anion Gap 10.7 mmol/L (3-11); BUN 30 mg/dL (7-18); Bilirubin, Total 0.4 mg/dL (0.2-1.0); CO2 24.3 mmol/L (21.0-32.0); CREATININE 0.85 mg/dL (0.70-1.30); Calcium 9.2 mg/dL (8.5-10.1); Calculated LDL 118 mg/dL; Chloride 103 mmol/L (98-107); Cholesterol 191 mg/dL (50-200); Glucose 108 mg/dL (70-100); HDL Cholesterol 32 mg/dL (40-60); Potassium 4.6 mmol/L (3.5-5.1); Sodium 138 mmol/L (136-145); Total Protein 6.9 g/dL (6.4-8.2); Triglyceride 208 mg/dL (30-150)
== END 2019-02-17 02:30 ==
PROVIDERS: PCP Family Medicine; Visit Provider Family Medicine
DX: Z00.00 Encounter for general adult medical examination without abnormal findings (principal); R73.01 Impaired fasting glucose; Z13.220 Encounter for screening for lipoid disorders; Z13.228 Encounter for screening for other metabolic disorders
CPT/HCPCS: 36415; 80053; 80061; 83721; 85027; 83036

== ENCOUNTER 2019-03-04 10:47 | Outpatient (CLI) | payer OTHER, SELFPAY ==
--- NOTE | 2019-03-04 10:27 | DI.RAD_ITS ---
SYMPTOM/DIAGNOSIS: CONTINUED LOW BACK KPAIN LUMBAR SPINE: AP and lateral views. Comparison 08/13/13 There are 5 lumbar type vertebral bodies. There is grade I anterolisthesis of L4 on L5. No spondylolysis is seen. There is mild disc space narrowing at L5-S1. End plate osteophytes are seen from L2, L3 through L5-S1. There do appear to be degenerative changes of the facets at L4-5 and L5-S1. No acute fractures or subluxations are appreciated. IMPRESSION: Degenerative changes at L4-5 causing Grade 1 anterolisthesis of L4 on L5 2. Multilevel degenerative changes in the lumbar spine.
== END 2019-03-04 11:07 ==
PROVIDERS: PCP Family Medicine; Visit Provider Physician Assistant
DX: M54.5 Low back pain (principal); M51.37 Other intervertebral disc degeneration, lumbosacral region; M47.816 Spondylosis without myelopathy or radiculopathy, lumbar region
CPT/HCPCS: 72100

== ENCOUNTER 2019-03-10 00:39 | Outpatient (CLI) | payer OTHER, SELFPAY ==
--- NOTE | 2019-03-10 15:15 | DI.MRI_ITS ---
SYMPTOMS/DIAGNOSIS: ACUTE ON CHRONIC LOW BACK PAIN L4-5, M54.9 MRI OF THE LUMBAR SPINE: The study was carried out according to the usual protocol. T 2 sagittal, T 1 sagittal and T 1 sagittal STIR and T 1 axial T 2 axial and T 2 MSMA pulse sequences were performed. At L 1 - 2 there is no disc pathology. There are minimal facet joint degenerative changes and no evidence of spinal stenosis. At L 2 - 3 there is slight diminished signal in the disc consistent with partial desiccation. There is no evidence of a disc herniation. Mild facet joint DJD is apparent and there is no evidence of significant spinal stenosis. At L 3 - 4 there is some disc space narrowing and diminished disc signal and there is a small subligamentous disc herniation. Degenerative changes involving the facet joints are identified. There is bilateral neural narrowing. At L 4 - 5 a subligamentous disc herniation is identified. There is moderately severe facet joint DJD and evidence of bilateral foraminal stenosis. Also there is a very minimal anterior subluxation of L 4 on L 5. At L 5 - S 1 note is also made of a small subligamentous disc herniation. There are facet joint degenerative changes and evidence of bilateral foraminal stenosis. There is no evidence of an abnormality involving the lower dorsal cord, conus or filum terminale. SUMMARY: There is evidence of disc pathology and DJD with resultant multi-level spinal stenosis. Please see the above discussion.
== END 2019-03-10 00:59 ==
PROVIDERS: PCP Family Medicine; Visit Provider Student in an Organized Health Care Education/Training Program
DX: M54.5 Low back pain (principal); M47.817 Spondylosis without myelopathy or radiculopathy, lumbosacral region; M51.37 Other intervertebral disc degeneration, lumbosacral region; M48.07 Spinal stenosis, lumbosacral region
CPT/HCPCS: 72148

== ENCOUNTER 2019-04-01 10:11 | Outpatient (CLI) | payer OTHER, SELFPAY ==
--- NOTE | 2019-04-01 13:05 | DI.RAD_ITS ---
SYMPTOMS/DIAGNOSIS: BILATERAL HIP PAIN FOR YEARS, FALL IN NOVEMBER BUT PAIN BEFORE THEN, M25.551, M25.552 BILATERAL HIPS AND PELVIS: Five views were obtained. There is narrowing of the cartilaginous joint spaces of both hips. Moderate hypertrophic spurring of the acetabula noted bilaterally. The femoral heads are fairly well preserved. CONCLUSION: Moderate DJD, both hips.
== END 2019-04-01 10:31 ==
PROVIDERS: PCP Family Medicine; Visit Provider Family Medicine
DX: M25.551 Pain in right hip (principal); M25.552 Pain in left hip; M16.0 Bilateral primary osteoarthritis of hip
CPT/HCPCS: 73521

== ENCOUNTER 2019-06-23 13:12 | Outpatient (CLI) | payer OTHER, SELFPAY ==
[2019-06-23 13:17] VITALS: BP 92/62; PULSE 70; RESP 20; TEMP 37; O2SAT 94
--- NOTE | 2019-06-23 13:48 | PDOC.PAIN ---
Pain Clinic Procedure Note Procedure Note Procedure Note: LUMBAR INTERLAMINAR EPIDURAL STERIOID INJECTION PROCEDURE NOTE EVAN SAUNDERS has been referred to the [facility] for a lumbar epidural steroid injection by Ms Peoples. Pre-operative diagnosis: lumbar radiculopathy Post-operative diagnosis: same as above The patient complains of low back pain with pain radiating down the left buttock and down left leg including left calf. EVAN was greeted by the nurse who verified patients name and . The patient was then taken to the fluoroscopy suite. EVAN was interviewed and the medical record reviewed. There were no medical, pharmacologic, radiographic, or other structural contraindications to attempting fluoroscopically guided lumbar epidural steroid injection. Risks and potential side effects, as well as potential benefits of the procedure were reviewed with Mr Saunders. His voiced concerns were addressed. After I was assured that informed consent was obtained, the patient consent form was signed. Standard time-out procedure was performed. EVAN was placed in the prone position on the fluoroscopy table and automated blood pressure cuff and pulse oximeter applied. The skin entry point for entering/approaching the L5-S1 epidural space for the lumbar epidural steroid injection was marked. Following thorough chlorhexadine preparation of the skin and draping and 1% lidocaine infiltration of the skin entry point and subcutaneous tissues, an 18 gauge Touhy needle was placed and advanced under fluoroscopic guidance and with loss of resistance technique into the L5-S1 epidural space. Needle tip placement and depth were aided and confirmed by fluoroscopy. There was no paresthesia or return of blood or CSF through the needle. 2 cc's of Omnipaque 240 was injected (48 cc's was wasted) with clear epidural spread confirmed with fluoroscopy. 80 mg of Depomedrol (80 mg/cc) was injected. This was followed by 0.5cc of preservative free 1% lidocaine and 1 cc of preservative-free normal saline to flush the steroid out of the needle. There was not any unusual discomfort expressed by EVAN . (48 cc of Omnipaque and 5 mg of Dexamethasone was wasted) EVAN's vital signs were stable throughout the procedure and were as recorded in nursing records. Follow up plans and appointments were discussed with EVAN . The patient is set to follow up with Ms Peoples in our pain clinic. Post procedure instruction was given as documented in nursing records and having met discharge criteria he was discharged from the Pain Management Center. Comments: If this procedure is successful in helping with pain and improving his function, it can be completed a maximum of 3 times every 12 months. I personally performed this entire procedure. Purvi Brar MD ABPN-subspecialty board certification in Pain Medicine Attending Physician - Pain Management
[2019-06-23 14:09] VITALS: BP 91/71; PULSE 76; RESP 16; O2SAT 93
[2019-06-23] MEDS: Omnipaque 240 MG/ML 50 ML BTL IJ (14:10)
--- NOTE | 2019-06-23 14:10 | DI.RAD_ITS ---
EXAM: XR PAIN CLINIC LUMBAR SP 2V CLINICAL HISTORY: Lumbar radiculopathy TECHNIQUE: Realtime digital imaging was performed. COMPARISON: No exams were available for comparison FINDINGS: Fluoroscopy was utilized by Dr. Brar during the performance of a lumbar epidural steroid injection. Pl ease refer to the procedure report for complete details. Fluoro time: 14.85 seconds
[2019-06-23] MEDS: methylPREDNISolone ACETATE 80 MG/ML VIAL IM (14:11)
== END 2019-06-23 13:32 ==
PROVIDERS: PCP Family Medicine; Visit Provider Internal Medicine
DX: M54.16 Radiculopathy, lumbar region (principal)
CPT/HCPCS: 62323; 72100; J1040; Q9967

== ENCOUNTER 2019-08-13 11:51 | Outpatient (CLI) | payer OTHER, SELFPAY ==
[2019-08-13 11:59] VITALS: BP 121/80; PULSE 80; RESP 20; TEMP 37.4; O2SAT 94
[2019-08-13 12:30] VITALS: BP 114/93; PULSE 72; RESP 18; O2SAT 95
[2019-08-13] MEDS: methylPREDNISolone ACETATE 80 MG/ML VIAL IJ (12:30)
[2019-08-13] MEDS: Omnipaque 240 MG/ML 50 ML BTL IJ (12:30)
--- NOTE | 2019-08-13 12:31 | PDOC.PAIN_ITS ---
Pain Clinic Procedure Note Procedure Note Procedure Note: INTRA-ARTICULAR SI JOINT INJECTION EVAN HASKINS has been referred to the [facility] for intra- articular SI joint injection. COMMENTS: I reviewed his note from Ms. Peoples. He also had an LESI on 06/23/19 which did not help much. DX: Sacroiliac joint dysfunction Patient was interviewed and the medical record reviewed. There were no medical, pharmacologic, radiographic or other structural contraindications to attempting fluoroscopically guided intra-articular SI joint injection. Risks and expected side effects as well as potential benefit of the procedure were reviewed and voiced concerns addressed. The printed consent form was signed and witnessed. Standard time-out procedure was performed. Patient was placed in the prone position on the fluoroscopy table and automated blood pressure cuff and pulse oximeter applied. The skin entry point for approaching left SI joint was identified under the most advantageous fluoroscopic view and marked. Following thorough Chlorhexadine preparation of the skin and draping and 1% lidocaine infiltration of the skin entry point and subcutaneous tissues, a 22 gauge spinal needle was placed under fluoroscopic guidance into left SI joint was identified under the most advantageous fluoroscopic view and marked. Following thorough Chlorhexadine preparation of the skin and draping and 1% lidocaine infiltration of the skin entry point and subcutaneous tissues, a 22 gauge spinal needle was placed under fluoroscopic guidance into left SI joint. Intra-articular placement was confirmed by a clear arthrogram resulting from the injection of 0.25ml Omnipaque 240, 1ml 1% lidocaine, and 80mg Depomedrol were injected intra-articularily with an initial reproduction of a significant component of the usual pain. Vital signs were stable throughout the procedure and were as recorded in the docflowsheet by the nursing staff. If given, dosages of intravenous drugs for anxiolysis and analgesia were documented in MAR. Follow up plans and appointments were discussed with the patient. Post procedure instruction was given as documented in nursing documentation and having met discharge criteria, and was discharged from the [facility]. COMMENTS: If this procedure is found to be effective, it can be completed up to 3 times per 12 months. CC: Rhoda Montes MD, DC
--- NOTE | 2019-08-13 13:28 | DI.RAD_ITS ---
EXAM: XR PAIN CLINIC SACRIOILIAC 2V CLINICAL HISTORY: SI JOINT INJECTION LEFT TECHNIQUE: COMPARISON: No exams were available for comparison FINDINGS: C-arm fluoroscopy was utilized by Dr. Rivera during left SI joint injection. Hard copy confirms needle placement at the left SI joint. Fluoro time 25.8 seconds IMPRESSION:
== END 2019-08-13 12:11 ==
PROVIDERS: PCP Family Medicine; Visit Provider Preventive Medicine Occupational Medicine
DX: M53.3 Sacrococcygeal disorders, not elsewhere classified (principal)
CPT/HCPCS: 64493; 72200; J1040; Q9967

== ENCOUNTER 2019-09-21 09:15 | Outpatient (CLI) | payer OTHER, SELFPAY ==
[2019-09-21 11:51] LABS: *AMPHETAMINES SCREEN URINE Negative (Negative); *BARBITURATES SCREEN URINE Negative (Negative); *BENZODIAZEPINES SCREEN URINE Negative (Negative); Cannabinoids THC POSITIVE (Negative); Cocaine Screen,Urine Negative (Negative); METHADONE URINE SCREEN Negative (Negative); OPIATES URINE SCREEN POSITIVE (Negative)
[2019-09-21 11:55] LABS: Tricyclic Antidepressants Negative (Negative)
[2019-09-21 15:21] LABS: Hemoglobin A1C 6.1 % (3.8-5.6)
== END 2019-09-21 09:35 ==
PROVIDERS: PCP Family Medicine; Visit Provider Family Medicine
DX: E11.9 Type 2 diabetes mellitus without complications (principal); G89.4 Chronic pain syndrome
CPT/HCPCS: 36415; 80307; 83036

== ENCOUNTER 2020-01-26 14:08 | Outpatient (CLI) | payer OTHER, SELFPAY ==
--- NOTE | 2020-01-26 06:00 | DI.RAD_ITS ---
EXAM: XR PAIN CLINIC LUMBAR SP 2V CLINICAL HISTORY: Lumbar Spondylosis. TECHNIQUE: Fluoroscopy was provided for the referring physician for guidance with performing injecti on procedure. COMPARISON: No exams were available for comparison FINDINGS: Please see procedure note for details. Fluoro Time: 26.7 seconds RADIATION DOSE DELIVERED:
[2020-01-26 14:20] VITALS: BP 145/89; PULSE 89; RESP 17; TEMP 37.3; O2SAT 98
--- NOTE | 2020-01-26 14:32 | PDOC.PAIN_ITS ---
Pain Clinic Procedure Note Procedure Note Procedure Note: Lumbar/Sacral Medial Branch Blocks EVAN HASKINS has been referred to the [facility] for lumbar/sacral medial branch blocks. Pre-operative diagnosis: lumbar spondylosis Post-operative diagnosis: same as above Comment: patient has degenerative L4-5 spondylolisthesis and has been evaluated by Dr Osborne. He had previously had LESI, left sided SI joint injection as interventions for symptomatic pain relief. Currently he has predominantly left sided axial lower back pain. with lumbar extension today, her left sided back pain is about a 6 out of 10. He is referred for diagnostic left sided lumbar medial branch nerve block. Patient was interviewed and the medical record reviewed. There were no medical, pharmacologic, radiographic or other structural contraindications to attempting fluoroscopically guided local anesthetic lumbar/sacral medial branch blocks. Risks and expected side effects as well as potential benefit of the procedure were reviewed and voiced concerns addressed. The printed consent form was sign ed and witnessed. Standard time-out procedure was performed. Patient was placed in the prone position on the fluoroscopy table and automated blood pressure cuff and pulse oximeter applied. The skin entry points for approaching the anatomic target points of the segmental medial branches of left L3, L4, L5-DR were identified with anfluoroscopy and marked. Following thorough Chlorhexadine preparation of the skin and draping and 1% lidocaine infiltration of the skin entry points and subcutaneous tissues, a 22 gauge spinal needle was placed under fluoroscopic guidance down on to the target point for each respective segmental medial branch.Position was confirmed in A/P, oblique and lateral views with 0.25ml of omnipaque 240. Coult be this method .5ml 0.5% Bupivacaine was injected. Vital signs were stable throughout the procedure and were as recorded in the docflowsheet by the nursing staff. Follow up plans and appointments were discussed and was instructed to keep careful note of how the usual pain was modified by these injections. Specifically was asked to keep a pain diary for the next 24 hours using a numeric pain scale of 0-10 and report these results at the follow-up visit. Post procedure instruction was given as documented in the nursing documentation and having met discharge criteria. Patient was discharged from the [facility]. Based on the medial branches blocked today, if the patient has adequate relief and we are able to proceed to radiofrequency ablation, the treatment should result in the denervation of the left L4-5 and L5-S1 facets. We would expect to denervate a total of 2 facets during the radiofrequency ablation. COMMENTS: post procedure pain rated 0 out of 10. patient is able to twist his back and perform lumbar extension without eliciting usual left sided low back pain. I personally performed the entire procedure Purvi Brar MD Pain Management CC: Rhoda Montes MD, DC
[2020-01-26] MEDS: Bupivacaine 0.5% Pres-Free 10 ML VIAL IJ (15:01)
[2020-01-26] MEDS: Omnipaque 240 MG/ML 50 ML BTL IJ (15:01)
[2020-01-26 15:05] VITALS: BP 148/90; PULSE 89; RESP 14; O2SAT 96
== END 2020-01-26 14:28 ==
PROVIDERS: PCP Family Medicine; Visit Provider Internal Medicine
DX: M47.816 Spondylosis without myelopathy or radiculopathy, lumbar region (principal)
CPT/HCPCS: 64493; 64494; 72100; Q9967

== ENCOUNTER 2020-02-23 12:13 | Outpatient (CLI) | payer OTHER, SELFPAY ==
[2020-02-23 12:17] VITALS: BP 112/76; PULSE 71; RESP 20; TEMP 37; O2SAT 97
[2020-02-23] MEDS: Omnipaque 240 MG/ML 50 ML BTL IJ (12:50)
[2020-02-23] MEDS: Lidocaine 2% Pres-Free 5 ML VIAL IJ (12:51)
--- NOTE | 2020-02-23 12:53 | DI.RAD_ITS ---
EXAM: XR PAIN CLINIC LUMBAR SP 2V CLINICAL HISTORY: Lumbar Spondylosis TECHNIQUE: 2D and realtime digital imaging was performed. Fluoroscopy was provided in the OR COMPARISON: No exams were available for comparison FINDINGS: C-arm fluoroscopy was utilized by Dr. Garcia during reported left lumbar medial branch block. Hard copies show left-sided injections at what appear to be the L3-4, L4-5, and L5-S1 levels. Fluoroscopy time, 41.5 seconds. IMPRESSION: RADIATION DOSE DELIVERED: Total DLP
[2020-02-23 12:58] VITALS: BP 128/74; PULSE 69; RESP 14; O2SAT 97
--- NOTE | 2020-02-23 13:08 | PDOC.PAIN ---
Pain Clinic Procedure Note Procedure Note Procedure Note: Lumbar/Sacral Medial Branch Blocks EVAN HASKINS has been referred to the [facility] for lumbar/sacral medial branch blocks. Pre-operative diagnosis: lumbar spondylosis Post-operative diagnosis: same as above Comment: patient has degenerative L4-5 spondylolisthesis and has been evaluated by Dr Osborne. He had previously had LESI, left sided SI joint injection as interventions for symptomatic pain relief. Currently he has predominantly left sided axial lower back pain. with lumbar extension today, his left sided back pain is about a 8 out of 10. He is here for confirmatory diagnostic left sided lumbar medial branch nerve block. Patient was interviewed and the medical record reviewed. There were no medical, pharmacologic, radiographic or other structural contraindications to attempting fluoroscopically guided local anesthetic lumbar/sacral medial branch blocks. Risks and expected side effects as well as potential benefit of the procedure were reviewed and voiced concerns addressed. The printed consent form was signed and witnessed. Standard time-out procedure was performed. Patient was placed in the prone position on the fluoroscopy table and automated blood pressure cuff and pulse oximeter applied. The skin entry points for approaching the anatomic target points of the segmental medial branches of left L3, L4, L5-DR were identified with and fluoroscopy and marked. Following thorough Chlorhexadine preparation of the skin and draping and 1% lidocaine infiltration of the skin entry points and subcutaneous tissues, a 22 gauge spinal needle was placed under fluoroscopic guidance down on to the target point for each respective segmental medial branch.Position was confirmed in A/P, oblique and lateral views with 0.25ml of omnipaque 240. Using this method 0.5ml 2% Lidocaine was injected. Vital signs were stable throughout the procedure and were as recorded in the docflowsheet by the nursing staff. Follow up plans and appointments were discussed and was instructed to keep careful note of how the usual pain was modified by these injections. Specifically was asked to keep a pain diary for the next 24 hours using a numeric pain scale of 0-10 and report these results at the follow-up visit. Post procedure instruction was given as documented in the nursing documentation and having met discharge criteria. Patient was discharged from the [facility]. Based on the medial branches blocked today, if the patient has adequate relief and we are able to proceed to radiofrequency ablation, the treatment should result in the denervation of the left L4-5 and L5-S1 facets. We would expect to denervate a total of 2 facets during the radiofrequency ablation. COMMENTS: post procedure pain rated 0 out of 10. patient is able to twist his back and perform lumbar extension without eliciting usual left sided low back pain. I personally performed the entire procedure Purvi Brar MD Pain Management CC: Rhoda Montes MD, DC
== END 2020-02-23 12:33 ==
PROVIDERS: PCP Family Medicine; Visit Provider Internal Medicine
DX: M47.816 Spondylosis without myelopathy or radiculopathy, lumbar region (principal)
CPT/HCPCS: 64493; 64494; 72100; Q9967

== ENCOUNTER 2020-04-19 14:18 | Outpatient (CLI) | payer OTHER, SELFPAY ==
--- NOTE | 2020-04-19 07:00 | DI.RAD_ITS ---
EXAM: XR PAIN CLINIC LUMBAR SP 2V CLINICAL HISTORY: Dx:Lumbar Spondylosis. TECHNIQUE: Fluoroscopy was provided for the referring physician for guidance with performing injecti on procedure. COMPARISON: No exams were available for comparison FINDINGS: Please see procedure note for details. Fluoro Time: 25.4 seconds RADIATION DOSE DELIVERED:
[2020-04-19 14:27] VITALS: BP 109/72; PULSE 83; RESP 17; TEMP 36.4; O2SAT 95
[2020-04-19] MEDS: Lactated Ringers 1,000 ML 80 ML IV (15:09)
[2020-04-19] MEDS: Midazolam 2 MG/2 ML VIAL IVP (15:10)
[2020-04-19] MEDS: fentaNYL 100 MCG/2 ML VIAL IVP (15:10)
[2020-04-19 15:28] VITALS: BP 117/62; PULSE 81; RESP 13; O2SAT 91
--- NOTE | 2020-04-19 15:39 | PDOC.PAIN ---
Pain Clinic Procedure Note Procedure Note Procedure Note: Left Lumbar Radiofrequency with Coolief Machine PROCEDURE NOTE Date of Service: April 19, 2020 Patient: EVAN HASKINS Provider: Purvi Brar MD Pre Operative Diagnosis: lumbar spondylosis Post Operative Diagnosis: same as above PROCEDURE: Radiofrequency Ablation of medial branches - LT L3, L4, L5-DR EVAN HASKINS was brought into the fluoroscopy suite and positioned into the prone position on the fluoroscopy table and allowed to adjust to a position of comfort. A grounding pad was placed on the right thigh. The lumbar region was widely prepped with a chloraprep solution, allowed to air dry and draped in standard sterile surgical fashion. Local anesthesia was provided by 8mL of 1% lidocaine delivered with a 25g needle. A 17g 100mm radiofrequency introducer needle was placed to the planned anatomic targets guided with intermittent fluoroscopy with a perpendicular approach to terminally place at the junction of the superior articular process and the transverse process of the left L3, L4, L5-DR and the base of the sacral ala on the left for the L5 medial branch nerve. The stylets were removed and radiofrequency probes with a 4mm active tip were then inserted. Needle tip position of the probes was verified in the AP, oblique, and lateral views. At each site, the medial branch nerve was stimulated at 2 Hz to a maximum 1-2 volts determined to finalize safe needle and electrode placement. The patient was awake and responsive during this portion of the procedure. Each target was anesthetized with 1mL of 2% lidocaine for anesthesia for lesioning and then each target was lesioned at 80 degrees Celsius for 2 minutes and 30 seconds. Tissue impedences were noted to be between 250 and 500 Ohms. Post lesioning, 0.5cc solution containing 40mg of depomedrol and 2cc of 0.5cc of preservative free Bupivocaine was injected at each site. Electrodes and needles were then removed and bandages placed over the needle placement sites, the patient then returned to the supine position on a stretcher and transported to the recovery room without hemodynamic, neurologic, or allergic reactions. Fluoroscopic images were printed for hard copy recording and digitally archived. POST PROCEDURE EVALUATION: IMPRESSION: 1. Patient tolerated procedure well without issue 2. Received 0.5mg of IV versed and 25mcg of IV Fentanyl Follow up plans and appointments were discussed with the EVAN . Post procedure instruction was given as documented in nursing documentation and having met discharge criteria, EVAN was discharged from the [facility]. COMMENTS: No complications. F/U with our office as needed. I personally performed this entire procedure. Purvi Brar MD Attending Physician
[2020-04-19] MEDS: Lidocaine 2% Pres-Free 5 ML VIAL IJ (15:45)
[2020-04-19] MEDS: methylPREDNISolone ACETATE 40 MG/ML VIAL IJ (15:46)
[2020-04-19] MEDS: Lidocaine 1% Pres-Free 30 ML VIAL IJ (15:48)
[2020-04-19] MEDS: Bupivacaine 0.5% Pres-Free 10 ML VIAL IJ (15:48)
== END 2020-04-19 14:38 ==
PROVIDERS: PCP Family Medicine; Visit Provider Internal Medicine
DX: M47.816 Spondylosis without myelopathy or radiculopathy, lumbar region (principal)
CPT/HCPCS: 64635; 64636; 72100; J1030; J2250; J3010

== ENCOUNTER 2020-05-29 18:35 | Emergency (ER) | payer OTHER, SELFPAY ==
[2020-05-29] VITALS (24 sets, daily range): BP systolic 105–133; BP diastolic 63–87; PULSE 74–89; RESP 9–40; TEMP 37.2–37.4; O2SAT 93–97
--- NOTE | 2020-05-29 18:54 | W.ED.GENAD ---
Discharge Plan Disposition Patient Disposition: HOME Condition: Stable Discharge Details Clinical Impression: Fall from ladder, Incidental pulmonary nodule, Subluxation of L4-L5 lumbar vertebra Primary Care Provider: Rhoda Montes ED Provider: Jc Zhu Home Meds and New Rx's Prescriptions: Continued aspirin 81 mg tablet,delayed release (DR/EC) 81 mg PO DAILY RF: 0 atorvastatin 80 mg tablet 80 mg PO HS Qty: 90 RF: 12 isosorbide mononitrate 30 mg tablet extended release 24 hr 30 mg PO DAILY Qty: 90 RF: 12 duloxetine [Cymbalta] 60 mg capsule,delayed release(DR/EC) 60 mg PO DAILY Qty: 90 RF: 12 lisinopril-hydrochlorothiazide 20-12.5 mg tablet 1 tab PO DAILY Qty: 90 RF: 12 metoprolol succinate 50 mg tablet extended release 24 hr 50 mg PO DAILY Qty: 90 RF: 4 metaxalone 800 mg tablet 800 mg PO TID Qty: 90 RF: 12 potassium chloride 20 mEq tablet,ER particles/crystals 40 meq PO BID Qty: 360 RF: 12 mupirocin 2 % ointment 1 applic TP BID Qty: 30 RF: 0 oxycodone-acetaminophen [Endocet] 10-325 mg tablet 1 tab PO QID MDD 4 Qty: 100 RF: 0 NARCOTIC CONTRACT RF: 0 nitroglycerin 0.4 MG tablet, sublingual 0.4 mg Sublingual PRN PRNQty: 25 RF: 12 No Action prednisone 20 mg tablet See Rx Instructions PO DAILY Qty: 11 RF: 0 Discharge Instructions Additional Instructions: Please take your medication as prescribed. If you continue to have back pain. Please be sure to follow-up with orthopedics. Please contact your primary care physician to arrange follow-up. Please be sure to discuss pulmonary nodule. Radiology recommends repeat imaging in 3 to 6 months. Return to the ER for any worsening or new concerning symptoms. Referrals: Rhoda Montes MD, [place] [Primary Care Provider] - Discharge Data Discharge Date/Time-TO BE ENTERED AT DEPARTURE: 05/29/20 22:35 Medical Decision Making <Guru Goldman MD - Last Filed: 06/22/20 14:24> 1900??55-year-old male here after 10 foot fall from ladder to the ground with trauma to his right hip/pelvis, left shoulder and head. No loss of consciousness. Patient is neurologically intact. He does have significant pain with any movement of his right hip. I am concerned about pelvic fracture. Patient is on aspirin. Patient is currently maintaining airway and hemodynamically intact. Plan to obtain CT of the head to assess for acute intracranial traumatic injury. Consider C-spine fracture given distracting injury and will obtain CT of the cervical spine. Will obtain CT of the chest abdomen pelvis to assess for intrathoracic or intra-abdominal/pelvic life-threatening trauma. 2027 --patient reassessed and remained hemodynamically stable. He was given Dilaudid IV for pain. CT of the head was reviewed and interpreted by radiology: IMPRESSION: 1. No acute intracranial abnormality. No acute ischemia or mass effect or acute intracranial hemorrhage. 2. Chronic lacunar infarction in left basal ganglia, likely sequela of remote infarction. 3. There is a mildly depressed age indeterminate fracture of the left anterior ethmoidal plate, anteromedial wall of left orbit. There is no air-fluid level or significant hematoma and could be chronic. There is mild mucosal thickening in left anterior ethmoidal air cells and left frontal sinus. 4. Globes and retro-orbital tissues are normal. CT of the cervical spine was interpreted by radiology:IMPRESSION: No acute fracture or subluxation in cervical spine. The chest was interpreted by radiology: IMPRESSION: 1. 1.2 cm mixed density nodule or infiltrate in right upper lobe. Surveillance CT recommended in 3-6 months following 2017 Fleischner criteria. 2. Small hiatal hernia. CT of the abdomen pelvis was interpreted by radiology: IMPRESSION: 1. Age-indeterminate mild anterior subluxation of L4 on L5. 2. Perinephric stranding of fat which could have several possible etiologies including scarring, third spacing of fluid, inflammatory process or infection CT of the thoracic spine was reviewed and interpreted by radiology: IMPRESSION: 1. No fracture or subluxation. 2. Multilevel degenerative changes. 3. Straightening of kyphosis. CT of the lumbar spine was interpreted by radiology: IMPRESSION: Age-indeterminate anterior subluxation of L4 on L5. I called and spoke with the radiologist about the findings on the CT abdomen pelvis and he noted that mild bilateral perinephric stranding is noted raises a suspicion for prior scarring. Patient does not have urinary symptoms. Radiologist also notes that patient does have bony anomaly right iliac bone in the area where he has pain this finding is chronic. This area may have been injured with contusion during fall. Radiologist also notes age-indeterminate anterior subluxation L4 on L5 that is mild with no associated fracture. I asked radiologist to compare to prior CT which he is obtaining. I reviewed prior MRI of the lumbar spine 02/27 that revealed: very minimal anterior subluxation of L 4 on L 5. 9:07 -- Patient continues to have left shoulder pain. Will obtain left shoulder x-ray and clavicle x-ray. <Jc Zhu MD - Last Filed: 05/29/20 22:10> xray of shoulder and clavicle unremarkable, remains hd stable, will d/c home and return precautions given HPI <Guru Goldman MD - Last Filed: 06/22/20 14:24> General Mode of arrival: EMS. Date/Time Provider Initiated Documentation: 05/29/20 18:37. Limitations to Documentation: no limitations. Information obtained by: EMS. HPI Narrative: 55-year-old male presents with chief complaint of right hip pain. Patient notes he fell from a 10 foot ladder to the ground just prior to arrival. Pain is severe and worse with attempted ambulation. Patient did hit his head. No loss of consciousness. He has associated left shoulder pain. Related Data Home Medications Medication Instructions Recorded Confirmed Narcotic Contract 06/23/13 06/02/20 nitroglycerin 0.4 mg SUBLINGUAL PRN PRN #25 12/18/16 06/02/20 tab-cap aspirin 81 mg tablet,delayed 81 mg PO DAILY 07/07/18 06/02/20 release atorvastatin 80 mg tablet 80 mg PO HS #90 tab-cap 04/04/20 06/02/20 duloxetine 60 mg capsule,delayed 60 mg PO DAILY #90 tab-cap 04/04/20 06/02/20 release isosorbide mononitrate 30 mg 30 mg PO DAILY #90 tab 04/04/20 06/02/20 tablet,extended release 24 hr lisinopril 20 1 tab PO DAILY #90 tab-cap 04/04/20 06/02/20 mg-hydrochlorothiazide 12.5 mg tablet metaxalone 800 mg tablet 800 mg PO TID #90 tab-cap 04/04/20 06/02/20 metoprolol succinate 50 mg 50 mg PO DAILY #90 tab 04/04/20 06/02/20 tablet,extended release 24 hr mupirocin 2 % topical ointment 1 applic TP BID #30 gm 04/04/20 06/02/20 potassium chloride 20 mEq 40 meq PO BID #360 tab-cap 04/04/20 06/02/20 tablet,extended release(part/cryst) oxycodone-acetaminophen 10 mg-325 1 tab PO QID #100 tab MDD 4 05/03/20 06/02/20 mg tablet prednisone 20 mg tablet See Rx Instructions PO DAILY #11 06/02/20 06/02/20 tab Previous Rx's Medication Instructions Recorded atorvastatin 80 mg tablet 80 mg PO HS #90 tab-cap 04/04/20 duloxetine 60 mg capsule,delayed 60 mg PO DAILY #90 tab-cap 04/04/20 release isosorbide mononitrate 30 mg 30 mg PO DAILY #90 tab 04/04/20 tablet,extended release 24 hr lisinopril 20 1 tab PO DAILY #90 tab-cap 04/04/20 mg-hydrochlorothiazide 12.5 mg tablet metaxalone 800 mg tablet 800 mg PO TID #90 tab-cap 04/04/20 metoprolol succinate 50 mg 50 mg PO DAILY #90 tab 04/04/20 tablet,extended release 24 hr mupirocin 2 % topical ointment 1 applic TP BID #30 gm 04/04/20 potassium chloride 20 mEq 40 meq PO BID #360 tab-cap 04/04/20 tablet,extended release(part/cryst) oxycodone-acetaminophen 10 mg-325 1 tab PO QID #100 tab MDD 4 05/03/20 mg tablet prednisone 20 mg tablet See Rx Instructions PO DAILY #11 06/02/20 tab Allergies Allergy/AdvReac Type Severity Reaction Status Date / Time ibuprofen AdvReac Hematuria Verified 06/02/20 08:56 General Stated Complaint: Trauma YAMILE: 2 Review of Systems <Guru Goldman MD - Last Filed: 06/22/20 14:24> All systems reviewed & are unremarkable except as noted in HPI and below Cardiovascular Cardiovascular: Denies dyspnea Respiratory Respiratory: Denies dyspnea Musculoskeletal Musculoskeletal: Reports as per HPI and Reports back pain (Chronic) PFSH <Guur Goldman MD - Last Filed: 06/22/20 14:24> Medical History (Updated 05/29/20 @ 21:10 by Guru Goldman MD) Back pain Chest pain on exertion (07/20/16) Negative ETT, but did develop CP during test 07/27. Further w/u in pregress. Neg MPI 09/29 Chronic obstructive lung disease (06/11/99) Chronic pain syndrome Chronic pain syndrome (03/27/12) MRI 2013 - central L4-5 disc herniation referralto [facility]/epidural MULTIPLE INTERVENTIONS in past 06/09/13; NARCOTIC CONTRACT 03/25/17; Controlled substance agreement-renewed COPD (chronic obstructive pulmonary disease) Degeneration of cervical intervertebral disc Degeneration of cervical intervertebral disc (09/11/02) 09/14 ?DISC INJURY-DISCOGRAM; DDD @ L4-5 L5-S1 Depressive disorder (10/04/08) Elev transaminase/LDH (05/11/03) 05/14 ELEVATED ALT Essential hypertension (06/09/13) Fracture of distal end of right fibula (12/05/18) HTN (hypertension) Hyperlipidemia (11/10/03) Impaired fasting glucose (11/10/03) 11/13 IFG-112; AGA9I-1.9 Polyp of colon (08/28/13) 2013 DR. SANCHEZ; TUBULAR ADENOMA 2016 2 hyperplastic polyps, no adenoma Surgical History Colonoscopy - MAC (01/25/17) FINGER REPAIR (~2010) History of surgery two lumbar disc repairs, nuclealplasty KNEE REPAIR (~1981) Repair of inguinal hernia (~1978) LEFT Family History Mother , 63 Diabetes Heart disease Hyperlipidemia Stroke Breast cancer Father , 58 Heart disease Hyperlipidemia Alcohol abuse Sister No problems noted. Sister No problems noted. Sister No problems noted. Brother No problems noted. Maternal Grandfather Heart disease Paternal Grandfather Heart disease Maternal Grandmother Heart disease Stroke Paternal Grandmother Heart disease Stroke Son No problems noted. Son No problems noted. Daughter No problems noted. Social History Smoking/Tobacco Use Status: Former Tobacco Use Quit Date: 08/12/07 Tobacco: How many years used: 18 Second Hand Exposure: No Smoking risk assessment performed?: Yes Alcohol Intake: former Drug use: Occasionally Substance use type: marijuana Details: Pt ingests edibles, denies inhalation of marijuana. 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 Pets and animals: Yes Pets and animals: cat(s), dog(s) and farm animals Do you think of yourself as: straight/heterosexual Current gender identity: male What is your relationship status?: How often do you talk on the phone with friends or family?: three or more times per week How often do you get together with friends or relatives?: three or more times per week How often do you attend mandaen or rastafarian services?: 4 or more times per year Do you belong to any clubs or organized social groups?: yes Panel score (0-1 are the most socially isolated patients): 4 What type of physical activity do you participate in: walking and additional Details: PT and stretching Duration: < 15 minutes/day Frequency: daily Sophy/Moravian: No preference Special sophy needs: No Seatbelt use: never Helmet use: Yes Helmet use: sometimes Drive intox or ride w/intox line haul driver: No Do you feel safe at home: Yes Do you feel safe in your relationship?: Yes Exam <Guru Goldman MD - Last Filed: 06/22/20 14:24> Const General: cooperative and no acute distress HENMT Mouth: moist mucous membranes Eyes Conjunctivae: normal conjunctivae Sclera: normal sclerae Neck Neck: trachea midline and supple Resp Auscultation: clear to auscultation bilaterally, no rales, no rhonchi and no wheezes Cardio Rate: regular rate and not tachycardic Rhythm: regular rhythm GI Palpation: soft, not firm, no guarding, no masses, not rigid and nontender Back/Spine/Pelvis Cervical Spine: collar present Thoracic/Lumbar Spine: No thoracic spinal tenderness and lumbar spinal tenderness (midline lumbar lower) Other: Right posterior pelvis and buttock tender Skin General skin exam: no rashes or lesions noted Neuro General: patient alert, patient awake and tone normal Extrem General: no edema Right lower extremity: hip/thigh Details: tenderness Location: of the hip Location: posteriorly Psych Appearance: grossly normal Mental Status: mental status grossly normal Course <Guru Goldman MD - Last Filed: 06/22/20 14:24> Vital Signs Vital signs: Vital Signs Temperature 37.2 C 05/29/20 18:49 Pulse 80 05/29/20 18:49 Respiratory Rate 18 05/29/20 18:49 Blood Pressure 131/76 05/29/20 18:49 Pulse Oximetry 93 05/29/20 18:49 Temperature 37.2 C 05/29/20 18:49 Temperature Source Tympanic 05/29/20 18:49 Pulse 80 05/29/20 18:49 Respiratory Rate 18 05/29/20 18:49 Blood Pressure 131/76 05/29/20 18:49 Pulse Oximetry 93 05/29/20 18:49 Oxygen Delivery Method Room Air 05/29/20 18:49 Oxygen Flow Rate 0 05/29/20 18:49 Sign Out <Guru Goldman MD - Last Filed: 06/22/20 14:24> Sign Out Data: Sign Out Comment: Follow-up on x-ray of the left shoulder and clavicle. Ambulate patient and ensure stability prior to discharge. Last updated by Guru Goldman MD at 05/29/20 21:08
--- NOTE | 2020-05-29 19:00 | DI.CT_ITS ---
EXAM: CT THORACIC LUMBAR SPINE REC CLINICAL HISTORY: tender midline lumbar spine, fall 10ft TECHNIQUE: Axial, sagittal and coronal images were reconstructed from the chest abdomen pelvic CT. COMPARISON: CR XR lumbar spine AP, LAT from 03/04/2019 FINDINGS: Thoracic spine: There is no evidence of fracture. There are endplate osteophytes, eccentric toward t he right. The alignment is normal. Lumbar spine: There is no evidence of fracture. There are degenerative disc changes with small endpla te osteophytes and disc bulging at L3-4 and L4-5. There are facet degenerative changes at L4-5 which cause mild spondylolisthesis. This appears unchanged from plain films. There is moderate loss of disc height and small endplate osteophytes as well as vacuum phenomenon at L5-S1. IMPRESSION: Degenerative changes, greatest at L4-5 and L5-S1.. No acute abnormality.
[2020-05-29 19:16] LABS: Abs Immature Grans 0.07 10^3/uL (0.0-0.06); Absolute Basophil Count 0.05 10^3/uL (0.0-0.2); Absolute Eosinophil Count 0.12 10^3/uL (0.0-0.7); Absolute Lymphocyte Count 1.86 10^3/uL (1.2-3.4); Absolute Monocyte Count 1.13 10^3/uL (0.1-0.8); Absolute Neutrophil Count 10.18 10^3/uL (1.2-6.7); Basophils % 0.4; Eosinophils % 0.9; HCT 46.5 % (40.0-50.0); HGB 15.5 g/dL (13.5-17.5); Immature Grans % 0.5; Lymphocytes % 13.9; MCHC 33.3 % (32.0-36.0); MPV 10.2 fL (8.0-11.0); Monocytes % 8.4; Neutrophils % 75.9; Nucleated RBC 0 %; Platelet Count 277 10^3/uL (130-400); RDW 12.2 % (11.8-14.1); RDW-SD 41.9 fL; WBC 13.41 10^3/uL (4.4-10.8)
[2020-05-29 19:29] LABS: ALT 56 U/L (16-63); AST 39 U/L (15-37); Albumin 4.1 g/dL (3.4-5.0); Alkaline Phosphatase 92 U/L (46-116); BUN 28 mg/dL (7-18); Bilirubin, Total 0.4 mg/dL (0.2-1.0); CREATININE 1.36 mg/dL (0.70-1.30); Calcium 9.4 mg/dL (8.5-10.1); Chloride 102 mmol/L (98-107); Estimated GFR 54.01 (mL/min/1.73m2); Glucose 100 mg/dL (74-106); Lipase 109 U/L (73-393); Magnesium 2.3 mg/dL (1.8-2.4); Potassium 3.9 mmol/L (3.5-5.1); Sodium 136 mmol/L (136-145); Total Protein 7.6 g/dL (6.4-8.2)
--- NOTE | 2020-05-29 19:30 | DI.CT_ITS ---
EXAM: CT HEAD CERVICAL SPINE WO CLINICAL HISTORY: Fall 12 feet , trauma. TECHNIQUE: Imaging Protocol: Axial computed tomography images with coronal and sagittal reformatted images were created and reviewed COMPARISON: None FINDINGS: Head CT Ventricles and Extra axial spaces: Mild atrophy. Hemorrhage: None. Cerebral parenchyma: Rounded area of CSF attenuation in the left basal ganglia could represent an old lacunar infarct versus prominent perivascular space. No acute infarct is seen. Midline shift: None. Brainstem/Cerebellum: Normal. Calvarium: Normal. Visualized Paranasal sinuses/Mastoids: Mild mucosal thickening. Cervical Spine CT BONES: Vertebral body heights are maintained. Alignment is normal. There is no evidence of acute frac ture. Degenerative disc changes and facet degenerative changes are seen . SOFT TISSUES: No paraspinal hematoma. The airway appears intact. Coarse calcifications are seen in t he tonsils and right submandibular gland could be secondary to prior episodes of inflammation. No pneumothorax is seen at the lung apices. IMPRESSION: Head CT: Old left basal ganglia lacunar infarct versus prominent perivascular space. No acute abnorm ality. C-spine CT: Degenerative changes, no acute abnormality. Incidental RADIATION DOSE DELIVERED: LINK-TO-SR Total DLP DATA REPOSITORY: All CT scans at this facility are submitted to the National Radiology Data Registry (NRDR) Dose Index Registry (DIR) with the [employer] (ACR). RADIATION OPTIMIZATION: All CT scans at this facility use at least one of these dose optimization te chniques: automated exposure control; mA and/or kV adjustment per patient size (includes targeted exa ms where dose is matched to clinical indication); or iterative reconstruction.
--- NOTE | 2020-05-29 19:30 | DI.CT_ITS ---
EXAM: CT CHEST/ABD/PEL W CLINICAL HISTORY: Fall, 12 feet, Trauma. TECHNIQUE: Imaging Protocol: Axial computed tomography images with coronal and sagittal reformatted images were created and reviewed CONTRAST MATERIAL: Intravenous: Omnipaque 350 Contrast volume:100cc Oral: no COMPARISON: No exams were available for comparison FINDINGS: CHEST: Tracheobronchial tree: Patent where visualized. Mediastinum and Ronda: No dominant adenopathy or fluid collection. Pulmonary parenchyma: No consolidation or dominant measurable mass. Dependent changes. Small right upper lobe density. Mild apical emphysematous changes. Pleura: No effusion or pneumothorax. Lymph nodes: Within normal limits. Aorta: Thoracic portion non-dilated. No evidence of aortic injury. Heart: Normal size. Mild coronary artery calcifications. Bones: Degenerative changes. No fracture. ABDOMEN: Liver: Normal density. Few cysts are present. Gallbladder and biliary tract: No radiodense calculus or dilation. Pancreas: Normal density, no abnormal calcifications or inflammatory process. Spleen: Normal. Kidneys: Normal size, contour and axis. No radiodense stones or obstructive uropathy. No masses seen. Adrenal glands: No masses seen. Aorta: Abdominal portion non-dilated. Mild calcification. Lymph nodes: Within normal limits. PELVIS: Bladder: Symmetric distention, no gross wall thickening. Bowel: No obstruction or bowel wall thickening. Normal appendix. Normal quantity of stool. Peritoneal cavity: No ascites, collection or mesenteric inflammatory response. Bones: Degenerative disc changes and degenerative facet changes greatest at L4-5 and L5-S1. Degener ative changes of the hips. Bony excrescence from the posterior aspect of the right ilium. SI joint s and pubic symphysis are unremarkable. Reproductive organs: Within normal limits. IMPRESSION: No acute abnormality. Minimal increased density in the right upper lobe of doubtful clinical signifi cance. If the patient is at increased risk for lung cancer, a low-dose screening CT could be conside red in 1 year. RADIATION DOSE DELIVERED: Total DLP DATA REPOSITORY: All CT scans at this facility are submitted to the National Radiology Data Registry (NRDR) Dose Index Registry (DIR) with the [employer] (ACR). RADIATION OPTIMIZATION: All CT scans at this facility use at least one of these dose optimization te chniques: automated exposure control; mA and/or kV adjustment per patient size (includes targeted exa ms where dose is matched to clinical indication); or iterative reconstruction.
[2020-05-29] MEDS: Normal Saline 1,000 ML 1000 ML IV (19:44)
[2020-05-29] MEDS: Normal Saline - Diluent 50 ML VIAL IV (19:49)
[2020-05-29] MEDS: Omnipaque 350 MG/ML 100 ML BTL IJ (19:49)
[2020-05-29] MEDS: Normal Saline Flush 10 ML SYR IVP (19:50)
[2020-05-29] MEDS: HYDROmorphone 2 MG/ML VIAL 1 MG IVP (19:56)
[2020-05-29] MEDS: Ondansetron 4 MG/2 ML VIAL IVP (19:57)
--- NOTE | 2020-05-29 20:04 | DI.VRAD_ITS ---
PROCEDURE INFORMATION: Exam: CT Chest With Contrast Exam date and time: 05/29/2020 6:48 PM Age: 55 years old Clinical indication: Injury or trauma; Generalized; Blunt trauma (contusions or hematomas); Injury date: 05/29/20; Injury details: Fall 12 ft from ladder, pain, L shoulder pain TECHNIQUE: Imaging protocol: Computed tomography of the chest with intravenous contrast. Radiation optimization: All CT scans at this facility use at least one of these dose optimization techniques: automated exposure control; mA and/or kV adjustment per patient size (includes targeted exams where dose is matched to clinical indication); or iterative reconstruction. Contrast material: OMNIPAQUE 350; Contrast volume: 100 ml; Contrast route: INTRAVENOUS (IV); COMPARISON: CT PELVIC/LOWER ABD WITHOUT CONT 09/18/2013 2:03 PM FINDINGS: Lungs: 1.2 cm mixed density nodule or infiltrate in right upper lobe. Dependent subsegmental atelectasis. Pleural space: No pleural effusion. No pneumothorax. Heart: No pericardial effusion or pneumopericardium.There are coronary artery calcifications. Mediastinal space: Small hiatal hernia. No pneumopericardium. Aorta: No aortic aneurysm or dissection. Lymph nodes: No adenopathy. Bones/joints: The spine demonstrates mild degenerative changes at multiple levels. No fracture. Soft tissues: No abnormal soft tissue densities. IMPRESSION: 1. 1.2 cm mixed density nodule or infiltrate in right upper lobe. Surveillance CT recommended in 3-6 months following 2017 Fleischner criteria. 2. Small hiatal hernia. PROCEDURE INFORMATION: Exam: CT Abdomen And Pelvis With Contrast Exam date and time: 05/29/2020 6:48 PM Age: 55 years old Clinical indication: Injury or trauma; Generalized; Blunt trauma (contusions or hematomas); Injury date: 05/29/20; Injury details: Fall 12 ft from ladder, pain, L shoulder pain TECHNIQUE: Imaging protocol: Computed tomography of the abdomen and pelvis with intravenous contrast. Radiation optimization: All CT scans at this facility use at least one of these dose optimization techniques: automated exposure control; mA and/or kV adjustment per patient size (includes targeted exams where dose is matched to clinical indication); or iterative reconstruction. Contrast material: OMNIPAQUE 350; Contrast volume: 100 ml; Contrast route: INTRAVENOUS (IV); COMPARISON: CT PELVIC/LOWER ABD WITHOUT CONT 09/18/2013 2:03 PM FINDINGS: Liver: Hepatic cysts. Gallbladder and bile ducts: Normal. No calcified stones. No ductal dilation. Pancreas: Normal. No ductal dilation. Spleen: Spleen intact, no splenomegaly. Adrenals: Normal. No mass. Kidneys and ureters: There is mild perinephric stranding. No hydronephrosis. Stomach and bowel: Intrathoracic stomach contracted, limiting evaluation. No dilated loops of small bowel or colonic dilatation. Appendix: Normal appendix. Intraperitoneal space: No free intraperitoneal gas. No ascites. Vasculature: No aortic aneurysm or dissection. Atherosclerosis. Lymph nodes: No adenopathy. Urinary bladder: Unremarkable as visualized. Reproductive: Unremarkable as visualized. Bones/joints: Mild anterior subluxation of L4 on L5.The spine demonstrates mild degenerative changes at multiple levels. Benign-appearing bony excrescence from right iliac bone. No fractures. Soft tissues: No abnormal soft tissue densities. IMPRESSION: 1. Age-indeterminate anterior subluxation of L4 on L5. 2. Perinephric stranding of fat which could have several possible etiologies including scarring, third spacing of fluid, inflammatory process or infection. Dictated and Authenticated by: Iglesia Otto MD. Ordering:KATERINE Fine MD
--- NOTE | 2020-05-29 20:06 | DI.VRAD_ITS ---
PROCEDURE INFORMATION: Exam: CT Head Without Contrast Exam date and time: 05/29/2020 7:18 PM Age: 55 years old Clinical indication: Injury or trauma; Blunt trauma (contusions or hematomas); Consciousness not specified; Injury date: 05/29/20; Injury details: Fell 12 ft from ladder, ; patient HX: Fall 12 ft from ladder, trauma TECHNIQUE: Imaging protocol: Computed tomography of the head without contrast. Radiation optimization: All CT scans at this facility use at least one of these dose optimization techniques: automated exposure control; mA and/or kV adjustment per patient size (includes targeted exams where dose is matched to clinical indication); or iterative reconstruction. COMPARISON: No relevant prior studies available. FINDINGS: Brain: There is mild parenchymal volume loss with compensatory dilatation of ventricles, sulci and basilar cisterns . There is chronic lacunar infarction in the left basal ganglia. There is mild nonspecific patchy foci of periventricular white matter hypodensity. Gardiner-white matter differentiation is normal. There is no intra-axial hemorrhage. Cerebral ventricles: No ventriculomegaly. Bones/joints: See Paranasal sinuses finding. Paranasal sinuses: There is mucosal thickening in the left frontal sinus, frontal ethmoidal air cells and anterior ethmoidal air cells. There is a age indeterminate minimally depressed fracture of anterior medial wall of left orbit/anterior ethmoidal plate (image 162 series 7).. There is mild multifocal mucosal thickening or polyps in bilateral floor of maxillary sinuses. Mastoid air cells: Visualized mastoid air cells are well aerated. Soft tissues: Unremarkable. IMPRESSION: 1. No acute intracranial abnormality. No acute ischemia or mass effect or acute intracranial hemorrhage. 2. Chronic lacunar infarction in left basal ganglia, likely sequela of remote infarction. 3. There is a mildly depressed age indeterminate fracture of the left anterior ethmoidal plate, anteromedial wall of left orbit. There is no air-fluid level or significant hematoma and could be chronic. There is mild mucosal thickening in left anterior ethmoidal air cells and left frontal sinus. 4. Globes and retro-orbital tissues are normal. PROCEDURE INFORMATION: Exam: CT Cervical Spine Without Contrast Exam date and time: 05/29/2020 7:18 PM Age: 55 years old Clinical indication: Injury or trauma; Blunt trauma (contusions or hematomas); Consciousness not specified; Injury date: 05/29/20; Injury details: Fell 12 ft from ladder, ; patient HX: Fall 12 ft from ladder, trauma TECHNIQUE: Imaging protocol: Computed tomography images of the cervical spine without contrast. Radiation optimization: All CT scans at this facility use at least one of these dose optimization techniques: automated exposure control; mA and/or kV adjustment per patient size (includes targeted exams where dose is matched to clinical indication); or iterative reconstruction. COMPARISON: No relevant prior studies available. FINDINGS: Vertebrae: There is straightening of cervical lordosis with mild reversal, centered at C6-C7. Cervicomedullary junction is normal. There is no acute fracture or subluxation. There are multilevel degenerative changes in the cervical spine with posterior osteophyte disc complexes, uncovertebral osteophytes and variable degree of facet osteoarthropathy. There is no critical central canal stenosis. There are variable degree of neural foraminal stenosis, most pronounced at right C4-C5 and right C5-C6 and to a lesser extent at left C4-C5. Soft tissues: Unremarkable. Submandibular/Parotid glands: There is a focus of calcification in right submandibular gland which could reflect submandibular sialolithiasis. Oropharynx: There are foci of calcifications in bilateral tonsils which could reflect tonsilliths. Lungs: Visualized lungs demonstrate mild pleuroparenchymal apical thickening. IMPRESSION: No acute fracture or subluxation in cervical spine. Dictated and Authenticated by: Norbert Betancourt MD. Ordering:KATERINE Fine MD
--- NOTE | 2020-05-29 20:07 | DI.VRAD_ITS ---
PROCEDURE INFORMATION: Exam: CT Thoracic Spine Without Contrast Exam date and time: 05/29/2020 7:12 PM Age: 55 years old Clinical indication: Injury or trauma; Blunt trauma (contusions or hematomas); Injury date: 05/29/20; Injury details: Fall 12 ft from ladder, mid to low back pain TECHNIQUE: Imaging protocol: Computed tomography images of the thoracic spine without contrast. Radiation optimization: All CT scans at this facility use at least one of these dose optimization techniques: automated exposure control; mA and/or kV adjustment per patient size (includes targeted exams where dose is matched to clinical indication); or iterative reconstruction. COMPARISON: No relevant prior studies available. FINDINGS: Vertebrae: No acute fracture. Normal alignment. Multilevel degenerative changes. Straightening of kyphosis. Discs/Spinal canal/Neural foramina: No significant disc protrusion. No severe spinal canal stenosis. No significant neural foraminal narrowing. Soft tissues: Unremarkable. IMPRESSION: 1. No fracture or subluxation. 2. Multilevel degenerative changes. 3. Straightening of kyphosis. PROCEDURE INFORMATION: Exam: CT Lumbar Spine Without Contrast Exam date and time: 05/29/2020 7:12 PM Age: 55 years old Clinical indication: Injury or trauma; Blunt trauma (contusions or hematomas); Injury date: 05/29/20; Injury details: Fall 12 ft from ladder, mid to low back pain TECHNIQUE: Imaging protocol: Computed tomography images of the lumbar spine without contrast. Radiation optimization: All CT scans at this facility use at least one of these dose optimization techniques: automated exposure control; mA and/or kV adjustment per patient size (includes targeted exams where dose is matched to clinical indication); or iterative reconstruction. COMPARISON: No relevant prior studies available. FINDINGS: Vertebrae: No acute fracture. Mild anterior subluxation of L4 on L5. Multilevel degenerative changes. No fractures. Discs/Spinal canal/Neural foramina: No significant disc protrusion. No severe spinal canal stenosis. No significant neural foraminal narrowing. Soft tissues: Unremarkable. IMPRESSION: Age-indeterminate anterior subluxation of L4 on L5. Dictated and Authenticated by: Iglesia Otto MD. Ordering:MICHELA Garvey MD
--- NOTE | 2020-05-29 20:37 | DI.VRAD_ITS ---
Addendum created by Iglesia Otto DO on 05/29/2020 8:37:05 PM EDT: Case reviewed with Dr. Goldman at approximately 8:30 p.m. on May 29, 2020 reportedly, patient also has pain about right pelvis. No pelvic fracture demonstrated. Perinephric stranding is bilateral and nonspecific. During discussion, prior CT of lumbar spine from 2013 was noted in the patient's study list. This will be requested for comparison to present and a 2nd addendum made. Initial report created on 05/29/2020 8:03:33 PM EDT: PROCEDURE INFORMATION: Exam: CT Chest With Contrast Exam date and time: 05/29/2020 6:48 PM Age: 55 years old Clinical indication: Injury or trauma; Generalized; Blunt trauma (contusions or hematomas); Injury date: 05/29/20; Injury details: Fall 12 ft from ladder, pain, L shoulder pain TECHNIQUE: Imaging protocol: Computed tomography of the chest with intravenous contrast. Radiation optimization: All CT scans at this facility use at least one of these dose optimization techniques: automated exposure control; mA and/or kV adjustment per patient size (includes targeted exams where dose is matched to clinical indication); or iterative reconstruction. Contrast material: OMNIPAQUE 350; Contrast volume: 100 ml; Contrast route: INTRAVENOUS (IV); COMPARISON: CT PELVIC/LOWER ABD WITHOUT CONT 09/18/2013 2:03 PM FINDINGS: Lungs: 1.2 cm mixed density nodule or infiltrate in right upper lobe. Dependent subsegmental atelectasis. Pleural space: No pleural effusion. No pneumothorax. Heart: No pericardial effusion or pneumopericardium.There are coronary artery calcifications. Mediastinal space: Small hiatal hernia. No pneumopericardium. Aorta: No aortic aneurysm or dissection. Lymph nodes: No adenopathy. Bones/joints: The spine demonstrates mild degenerative changes at multiple levels. No fracture. Soft tissues: No abnormal soft tissue densities. IMPRESSION: 1. 1.2 cm mixed density nodule or infiltrate in right upper lobe. Surveillance CT recommended in 3-6 months following 2017 Fleischner criteria. 2. Small hiatal hernia. PROCEDURE INFORMATION: Exam: CT Abdomen And Pelvis With Contrast Exam date and time: 05/29/2020 6:48 PM Age: 55 years old Clinical indication: Injury or trauma; Generalized; Blunt trauma (contusions or hematomas); Injury date: 05/29/20; Injury details: Fall 12 ft from ladder, pain, L shoulder pain TECHNIQUE: Imaging protocol: Computed tomography of the abdomen and pelvis with intravenous contrast. Radiation optimization: All CT scans at this facility use at least one of these dose optimization techniques: automated exposure control; mA and/or kV adjustment per patient size (includes targeted exams where dose is matched to clinical indication); or iterative reconstruction. Contrast material: OMNIPAQUE 350; Contrast volume: 100 ml; Contrast route: INTRAVENOUS (IV); COMPARISON: CT PELVIC/LOWER ABD WITHOUT CONT 09/18/2013 2:03 PM FINDINGS: Liver: Hepatic cysts. Gallbladder and bile ducts: Normal. No calcified stones. No ductal dilation. Pancreas: Normal. No ductal dilation. Spleen: Spleen intact, no splenomegaly. Adrenals: Normal. No mass. Kidneys and ureters: There is mild perinephric stranding. No hydronephrosis. Stomach and bowel: Intrathoracic stomach contracted, limiting evaluation. No dilated loops of small bowel or colonic dilatation. Appendix: Normal appendix. Intraperitoneal space: No free intraperitoneal gas. No ascites. Vasculature: No aortic aneurysm or dissection. Atherosclerosis. Lymph nodes: No adenopathy. Urinary bladder: Unremarkable as visualized. Reproductive: Unremarkable as visualized. Bones/joints: Mild anterior subluxation of L4 on L5.The spine demonstrates mild degenerative changes at multiple levels. Benign-appearing bony excrescence from right iliac bone. No fractures. Soft tissues: No abnormal soft tissue densities. IMPRESSION: 1. Age-indeterminate anterior subluxation of L4 on L5. 2. Perinephric stranding of fat which could have several possible etiologies including scarring, third spacing of fluid, inflammatory process or infection. Dictated and Authenticated by: Iglesia Otto MD. Ordering:KATERINE Fine MD
--- NOTE | 2020-05-29 20:54 | DI.VRAD_ITS ---
Addendum created by Iglesia Otto DO on 05/29/2020 8:54:30 PM EDT: Images from a CT of lumbar spine from September 18, 2013 have been made available in our reviewed in comparison to the present examination. Subluxation of L4 is a new finding from 2013. MRI or bone scan could be performed to assess if it is an acute finding. Addendum created by Iglesia Otto DO on 05/29/2020 8:37:05 PM EDT: Case reviewed with Dr. Goldman at approximately 8:30 p.m. on May 29, 2020 reportedly, patient also has pain about right pelvis. No pelvic fracture demonstrated. Perinephric stranding is bilateral and nonspecific. During discussion, prior CT of lumbar spine from 2013 was noted in the patient's study list. This will be requested for comparison to present and a 2nd addendum made. Initial report created on 05/29/2020 8:03:33 PM EDT: PROCEDURE INFORMATION: Exam: CT Chest With Contrast Exam date and time: 05/29/2020 6:48 PM Age: 55 years old Clinical indication: Injury or trauma; Generalized; Blunt trauma (contusions or hematomas); Injury date: 05/29/20; Injury details: Fall 12 ft from ladder, pain, L shoulder pain TECHNIQUE: Imaging protocol: Computed tomography of the chest with intravenous contrast. Radiation optimization: All CT scans at this facility use at least one of these dose optimization techniques: automated exposure control; mA and/or kV adjustment per patient size (includes targeted exams where dose is matched to clinical indication); or iterative reconstruction. Contrast material: OMNIPAQUE 350; Contrast volume: 100 ml; Contrast route: INTRAVENOUS (IV); COMPARISON: CT PELVIC/LOWER ABD WITHOUT CONT 09/18/2013 2:03 PM FINDINGS: Lungs: 1.2 cm mixed density nodule or infiltrate in right upper lobe. Dependent subsegmental atelectasis. Pleural space: No pleural effusion. No pneumothorax. Heart: No pericardial effusion or pneumopericardium.There are coronary artery calcifications. Mediastinal space: Small hiatal hernia. No pneumopericardium. Aorta: No aortic aneurysm or dissection. Lymph nodes: No adenopathy. Bones/joints: The spine demonstrates mild degenerative changes at multiple levels. No fracture. Soft tissues: No abnormal soft tissue densities. IMPRESSION: 1. 1.2 cm mixed density nodule or infiltrate in right upper lobe. Surveillance CT recommended in 3-6 months following 2017 Fleischner criteria. 2. Small hiatal hernia. PROCEDURE INFORMATION: Exam: CT Abdomen And Pelvis With Contrast Exam date and time: 05/29/2020 6:48 PM Age: 55 years old Clinical indication: Injury or trauma; Generalized; Blunt trauma (contusions or hematomas); Injury date: 05/29/20; Injury details: Fall 12 ft from ladder, pain, L shoulder pain TECHNIQUE: Imaging protocol: Computed tomography of the abdomen and pelvis with intravenous contrast. Radiation optimization: All CT scans at this facility use at least one of these dose optimization techniques: automated exposure control; mA and/or kV adjustment per patient size (includes targeted exams where dose is matched to clinical indication); or iterative reconstruction. Contrast material: OMNIPAQUE 350; Contrast volume: 100 ml; Contrast route: INTRAVENOUS (IV); COMPARISON: CT PELVIC/LOWER ABD WITHOUT CONT 09/18/2013 2:03 PM FINDINGS: Liver: Hepatic cysts. Gallbladder and bile ducts: Normal. No calcified stones. No ductal dilation. Pancreas: Normal. No ductal dilation. Spleen: Spleen intact, no splenomegaly. Adrenals: Normal. No mass. Kidneys and ureters: There is mild perinephric stranding. No hydronephrosis. Stomach and bowel: Intrathoracic stomach contracted, limiting evaluation. No dilated loops of small bowel or colonic dilatation. Appendix: Normal appendix. Intraperitoneal space: No free intraperitoneal gas. No ascites. Vasculature: No aortic aneurysm or dissection. Atherosclerosis. Lymph nodes: No adenopathy. Urinary bladder: Unremarkable as visualized. Reproductive: Unremarkable as visualized. Bones/joints: Mild anterior subluxation of L4 on L5.The spine demonstrates mild degenerative changes at multiple levels. Benign-appearing bony excrescence from right iliac bone. No fractures. Soft tissues: No abnormal soft tissue densities. IMPRESSION: 1. Age-indeterminate anterior subluxation of L4 on L5. 2. Perinephric stranding of fat which could have several possible etiologies including scarring, third spacing of fluid, inflammatory process or infection. Dictated and Authenticated by: Iglesia Otto MD. Ordering:KATERINE Fine MD
--- NOTE | 2020-05-29 21:38 | DI.RAD_ITS ---
EXAM: XR SHOULDER LT COMPLETE 2+V CLINICAL HISTORY: pain, trauma fall 12 ft. TECHNIQUE: 2D digital imaging was performed. COMPARISON: No exams were available for comparison FINDINGS: BONES: No acute fracture is present. No bony destructive lesion is seen. JOINTS: No dislocation present. SOFT TISSUE: Normal. IMPRESSION: Unremarkable radiographs of the left shoulder. DATA REPOSITORY: RADIATION DOSE DELIVERED:
--- NOTE | 2020-05-29 21:38 | DI.RAD_ITS ---
EXAM: XR CLAVICLE LT CLINICAL HISTORY: trauma, fall 12 ft TECHNIQUE: 2D digital imaging was performed. COMPARISON: No exams were available for comparison FINDINGS: BONES: No acute fracture is present. No bony destructive lesion is seen. JOINTS: No dislocation present. SOFT TISSUE: Normal. IMPRESSION: Unremarkable radiographs of the left clavicle. DATA REPOSITORY: RADIATION DOSE DELIVERED:
--- NOTE | 2020-05-29 21:49 | DI.VRAD_ITS ---
PROCEDURE INFORMATION: Exam: XR Left Clavicle, Complete Exam date and time: 05/29/2020 9:31 PM Age: 55 years old Clinical indication: Injury or trauma; Fall; Blunt trauma (contusions or hematomas); Shoulder; Left TECHNIQUE: Imaging protocol: XR Left clavicle complete. Any number of views. COMPARISON: CT CHEST/ABD/PEL W 05/29/2020 7:25 PM FINDINGS: Bones/joints: Normal. Soft tissues: Normal. IMPRESSION: No acute findings. Dictated and Authenticated by: Iglesia Otto MD. Ordering:MICHELA Garvey MD
--- NOTE | 2020-05-29 21:59 | DI.VRAD_ITS ---
PROCEDURE INFORMATION: Exam: XR Left Shoulder Exam date and time: 05/29/2020 9:38 PM Age: 55 years old Clinical indication: Injury or trauma; Fall; Blunt trauma (contusions or hematomas); Shoulder; Left TECHNIQUE: Imaging protocol: XR Left shoulder. Views: 2 or more views. COMPARISON: No relevant prior studies available. FINDINGS: Bones/joints: Normal. Soft tissues: Normal. IMPRESSION: No acute findings. Dictated and Authenticated by: Iglesia Otto MD. Ordering:MICHELA Garvey MD
== END 2020-05-29 22:35 | disposition home or self-care (01) ==
PROVIDERS: Registered Nurse Emergency; Emergency Provider Emergency Medicine; PCP Family Medicine
DX: S33.140A Subluxation of L4/L5 lumbar vertebra, initial encounter (principal); S09.90XA Unspecified injury of head, initial encounter; M25.512 Pain in left shoulder; W11.XXXA Fall on and from ladder, initial encounter; R91.1 Solitary pulmonary nodule; I10 Essential (primary) hypertension; J44.9 Chronic obstructive pulmonary disease, unspecified; Z87.891 Personal history of nicotine dependence; Z79.82 Long term (current) use of aspirin
CPT/HCPCS: 36415; 74177; 80053; 83690; 96361; 96374; 96375; 99285; 70450; 71260; 72125; 73000; 73030; 81003; 83735; 85025; J2405; J3490; L0172; L3650

== ENCOUNTER 2020-11-17 02:13 | Outpatient (CLI) | payer OTHER, SELFPAY ==
[2020-11-17 15:10] LABS: Hemoglobin A1C 6.2 % (<5.7)
== END 2020-11-17 02:14 | disposition home or self-care (01) ==
LOC: LBO 02:13
PROVIDERS: PCP Family Medicine; Visit Provider Family Medicine
DX: Z00.00 Encounter for general adult medical examination without abnormal findings (principal); E11.9 Type 2 diabetes mellitus without complications
CPT/HCPCS: 36415; 83036

== ENCOUNTER 2021-10-09 12:10 | Outpatient (CLI) | payer OTHER, SELFPAY ==
[2021-10-09 16:00] LABS: Hemoglobin A1C 6.2 % (<5.7)
[2021-10-09 17:04] LABS: ALT 53 U/L (16-63); AST 22 U/L (15-37); Albumin 3.9 g/dL (3.4-5.0); Alkaline Phosphatase 84 U/L (46-116); Anion Gap 8.5 mmol/L (3-11); BUN 23 mg/dL (7-18); Bilirubin, Total 0.3 mg/dL (0.2-1.0); CO2 26.5 mmol/L (21.0-32.0); Calcium 8.9 mg/dL (8.5-10.1); Calculated LDL 111 mg/dL (<100); Chloride 103 mmol/L (98-107); Cholesterol 182 mg/dL (<200); Glucose 127 mg/dL (74-106); HDL Cholesterol 34 mg/dL (40-60); Potassium 4.3 mmol/L (3.5-5.1); Sodium 138 mmol/L (136-145); Total Protein 7.2 g/dL (6.4-8.2); Triglyceride 187 mg/dL (<150)
== END 2021-10-09 12:11 | disposition home or self-care (01) ==
LOC: LBO 12:16
PROVIDERS: PCP Family Medicine; Visit Provider Family Medicine
DX: E11.9 Type 2 diabetes mellitus without complications (principal); E78.5 Hyperlipidemia, unspecified; I10 Essential (primary) hypertension; G89.4 Chronic pain syndrome
CPT/HCPCS: 36415; 80053; 80061; 83036

== ENCOUNTER 2021-10-12 10:18 | Outpatient (REF) | payer OTHER, SELFPAY ==
[2021-10-12 13:26] LABS: *AMPHETAMINES SCREEN URINE Negative (Negative); *BARBITURATES SCREEN URINE Negative (Negative); *BENZODIAZEPINES SCREEN URINE Negative (Negative); Cannabinoids THC Positive (Negative); Cocaine Screen,Urine Negative (Negative); METHADONE URINE SCREEN Negative (Negative); OPIATES URINE SCREEN Negative (Negative); Tricyclic Antidepressants Negative (Negative)
[2021-10-18 15:12] LABS: Misc Referral (MAYO) See Comments
== END 2021-10-12 10:19 | disposition home or self-care (01) ==
LOC: LBN 10:18
PROVIDERS: PCP Family Medicine; Visit Provider Family Medicine
DX: G89.4 Chronic pain syndrome (principal)
CPT/HCPCS: 80307

== ENCOUNTER 2022-11-22 10:36 | Emergency (ER) | payer OTHER, SELFPAY ==
--- NOTE | 2022-11-22 10:45 | DI.RAD_ITS ---
Exam(s) XR RIBS RT W PA LAT CHEST CLINICAL HISTORY: Fall 6 days ago, Right rib pain. COMPARISON: CR CHEST 2 VIEWS PA,LAT from 07/31/2010 TECHNIQUE:: PA and lateral views of the chest and four views of the right ribs were performed. FINDINGS: LUNGS:Clear. No pleural abnormality seen. HEART: Normal. MEDIASTINUM: Normal. BONES: No displaced rib fracture is seen. No bony destructive lesion is seen. OTHER FINDINGS: None. IMPRESSION: 1. Unremarkable radiographic appearance of the right ribs. 2. No acute pulmonary findings.
--- NOTE | 2022-11-22 11:00 | DI.RAD_ITS ---
Exam(s) XR SHOULDER RT COMPLETE 2+V EXAM: XR SHOULDER RT COMPLETE 2+V CLINICAL HISTORY: Fall, pain. TECHNIQUE: 2D digital imaging was performed. Five views. COMPARISON: CR,XR XR SHOULDER LT COMPLETE 2+V from 05/29/2020 FINDINGS: BONES: No acute fracture is present. No bony destructive lesion is seen. JOINTS: No dislocation present. Mild degenerative changes at the AC joint. Spurring at the glenoid. SOFT TISSUE: Normal. IMPRESSION: Degenerative changes. No acute abnormality. DATA REPOSITORY: RADIATION DOSE DELIVERED:
--- NOTE | 2022-11-22 11:02 | W.ED.GENAD ---
Discharge Plan Disposition Patient Disposition: Home Discharge Details Clinical Impression: Fall, Sprain of right shoulder, Rib pain on right side Primary Care Provider: Rhoda Montes ED Provider: Rody Krishnamurthy Home Meds and New Rx's Prescriptions: Continued aspirin 81 mg tablet,delayed release (DR/EC) 81 mg PO DAILY atorvastatin 80 mg tablet 80 mg PO HS Qty: 90 12RF duloxetine [Cymbalta] 60 mg capsule,delayed release(DR/EC) 60 mg PO DAILY Qty: 90 12RF isosorbide mononitrate 30 mg tablet extended release 24 hr 30 mg PO DAILY Qty: 90 12RF lisinopril-hydrochlorothiazide 20-12.5 mg tablet 1 tab PO DAILY Qty: 90 12RF metaxalone 800 mg tablet 800 mg PO TID Qty: 90 12RF metoprolol succinate 50 mg tablet extended release 24 hr 50 mg PO DAILY Qty: 90 4RF potassium chloride 20 mEq tablet,ER particles/crystals 40 meq PO BID Qty: 360 12RF NARCOTIC CONTRACT nitroglycerin 0.4 MG tablet, sublingual 0.4 mg Sublingual PRN PRNQty: 25 oxycodone-acetaminophen [Endocet] 10-325 mg tablet 1 tab PO QID MDD 4 PRN (Reason: pain) Qty: 95 0RF Discharge Instructions Instructions: Shoulder Sprain (ED), Chest Wall Pain (ED) Additional Instructions: No evidence of broken bones or dislocation on the x-rays. No evidence for pneumonia or lung abnormality. You may try lidocaine patches which you can obtain [id number]. Continue taking your pain medication. Alternate ice and heat. Follow up with primary care provider in 3-5 days. Return to ED sooner if any worsening shortness of breath, pain not relieved by medication, coughing up productive sputum, fever or concerns. Increase oral fluids. Referrals: Rhoda Montes MD, [place] [Primary Care Provider] - 3 days Medical Decision Making 57-year-old male presents to the ER with a chief complaint of right shoulder and right rib pain after a fall approximately 6 days ago off a stepstool. Patient reports he fell onto his right side onto a concrete floor. Denies any loss of consciousness or headache. He reports that his rib pain and shoulder pain is getting worse and he has sharp shooting pains making it hard to breathe. He is taking oxycodone and did take some prior to arrival. He does have a history of back pain COPD, chronic pain syndrome, diabetes mellitus, hypertension. X-ray right rib and chest ordered x-ray right shoulder ordered. X-rays are within normal limits no evidence of dislocation or fracture. Patient was given lidocaine patch here in the department. Results are noted below patient remained hemodynamically stable throughout entire stay. This text was generated using [employer] system, please disregard any oddities of phrase or misspellings. Imaging Data Radiologic Study: Imaging: X-Ray Radiologist's impression: COMPARISON: CR CHEST 2 VIEWS PA,LAT from 07/31/2010 TECHNIQUE:: PA and lateral views of the chest and four views of the right ribs were performed. FINDINGS: LUNGS:Clear. No pleural abnormality seen. HEART: Normal. MEDIASTINUM: Normal. BONES: No displaced rib fracture is seen. No bony destructive lesion is seen. OTHER FINDINGS: None. IMPRESSION: 1. Unremarkable radiographic appearance of the right ribs. 2. No acute pulmonary findings. Radiologic Study #2: Imaging: X-Ray Radiologist's impression: CLINICAL HISTORY: Fall, pain. TECHNIQUE: 2D digital imaging was performed. Five views. COMPARISON: CR,XR XR SHOULDER LT COMPLETE 2+V from 05/29/2020 FINDINGS: BONES: No acute fracture is present. No bony destructive lesion is seen. JOINTS: No dislocation present. Mild degenerative changes at the AC joint. Spurring at the glenoid. SOFT TISSUE: Normal. IMPRESSION: Degenerative changes. No acute abnormality. HPI General Mode of arrival: ambulatory. Date/Time Provider Initiated Documentation: 11/22/22 10:57. Limitations to Documentation: no limitations. Information obtained by: patient, RN notes reviewed and old records reviewed. HPI Narrative: 57-year-old male presents to the ER with a chief complaint of right shoulder and right rib pain after a fall approximately 6 days ago off a stepstool. Patient reports he fell onto his right side onto a concrete floor. Denies any loss of consciousness or headache. He reports that his rib pain and shoulder pain is getting worse and he has sharp shooting pains making it hard to breathe. He is taking oxycodone and did take some prior to arrival. He does have a history of back pain COPD, chronic pain syndrome, diabetes mellitus, hypertension. Related Data Home Medications Medication Instructions Recorded Confirmed Narcotic Contract 06/23/13 07/10/22 nitroglycerin 0.4 mg sublingual 0.4 mg sublingual PRN PRN #25 12/18/16 07/10/22 tablet tab-caps aspirin 81 mg tablet,delayed 81 mg PO DAILY 07/07/18 07/10/22 release atorvastatin 80 mg tablet 80 mg PO HS #90 tab-caps 04/10/22 07/10/22 duloxetine 60 mg capsule,delayed 60 mg PO DAILY #90 tab-caps 04/10/22 07/10/22 release (Cymbalta) isosorbide mononitrate 30 mg 30 mg PO DAILY #90 tabs 04/10/22 07/10/22 tablet,extended release 24 hr lisinopril 20 1 tab PO DAILY #90 tab-caps 04/10/22 07/10/22 mg-hydrochlorothiazide 12.5 mg tablet metaxalone 800 mg tablet 800 mg PO TID #90 tab-caps 04/10/22 07/10/22 metoprolol succinate 50 mg 50 mg PO DAILY #90 tabs 04/10/22 07/10/22 tablet,extended release 24 hr potassium chloride 20 mEq 40 meq PO BID #360 tab-caps 04/10/22 07/10/22 tablet,extended release(part/cryst) oxycodone-acetaminophen 10 mg-325 1 tab PO QID PRN pain #95 tabs 11/05/23 mg tablet (Endocet) Previous Rx's Medication Instructions Recorded atorvastatin 80 mg tablet 80 mg PO HS #90 tab-caps 04/10/22 duloxetine 60 mg capsule,delayed 60 mg PO DAILY #90 tab-caps 04/10/22 release (Cymbalta) isosorbide mononitrate 30 mg 30 mg PO DAILY #90 tabs 04/10/22 tablet,extended release 24 hr lisinopril 20 1 tab PO DAILY #90 tab-caps 04/10/22 mg-hydrochlorothiazide 12.5 mg tablet metaxalone 800 mg tablet 800 mg PO TID #90 tab-caps 04/10/22 metoprolol succinate 50 mg 50 mg PO DAILY #90 tabs 04/10/22 tablet,extended release 24 hr potassium chloride 20 mEq 40 meq PO BID #360 tab-caps 04/10/22 tablet,extended release(part/cryst) oxycodone-acetaminophen 10 mg-325 1 tab PO QID PRN pain #95 tabs 11/05/22 mg tablet (Endocet) Allergies Allergy/AdvReac Type Severity Reaction Status Date / Time ibuprofen AdvReac Hematuria Verified 07/10/22 11:19 General Stated Complaint: Chest/Rib YAMILE: 4 Review of Systems All systems reviewed & are unremarkable except as noted in HPI and below Cardiovascular Cardiovascular: Reports chest pain at rest (Right rib pain) Musculoskeletal Musculoskeletal: Reports as per HPI and Reports arthralgias PFSH All Active Problems (Updated 11/22/22 @ 12:21 by Rody Krishnamurthy NP) Fall (Acute) Sprain of right shoulder (Acute) Rib pain on right side (Acute) Recurrent skin cancer (Acute) Pre-diabetes (Acute) Skin lesion of neck (Acute) Weight gain (Acute) Thoracic back sprain (Acute) Lumbar dysfunction (Acute) Disability examination (Acute) Spinal stenosis of lumbar region (Acute) Primary osteoarthritis of right knee (Chronic) Polyp of colon (Chronic 08/28/13) 2013 DR. SANCHEZ; TUBULAR ADENOMA 2016 2 hyperplastic polyps, no adenoma Hyperlipidemia (Chronic 11/10/03) Essential hypertension (Chronic 06/09/13) Depressive disorder (Chronic 10/04/08) Chronic pain syndrome (Chronic 03/27/12) MRI 2013 - central L4-5 disc herniation referralto [facility]gn[facility]/epidural MULTIPLE INTERVENTIONS in past 06/09/13; NARCOTIC CONTRACT 03/25/17; Controlled substance agreement-renewed Chronic obstructive lung disease (Chronic 06/11/99) Annual physical exam (Acute 12/18/16) Medical History Back pain Chest pain on exertion (07/20/16) Negative ETT, but did develop CP during test 07/27. Further w/u in pregress. Neg MPI 09/29 Chronic pain syndrome COPD (chronic obstructive pulmonary disease) Degeneration of cervical intervertebral disc Degeneration of cervical intervertebral disc (09/11/02) 09/14 ?DISC INJURY-DISCOGRAM; DDD @ L4-5 L5-S1 Diabetes mellitus Elev transaminase/LDH (05/11/03) 05/14 ELEVATED ALT Fracture of distal end of right fibula (12/05/18) HTN (hypertension) Impaired fasting glucose (11/10/03) 11/13 IFG-112; AII3O-8.9 Surgical History Colonoscopy - MAC (01/25/17) FINGER REPAIR (~2010) History of surgery two lumbar disc repairs, nuclealplasty KNEE REPAIR (~1981) Repair of inguinal hernia (~1978) LEFT Family History Mother , 63 Diabetes Heart disease Hyperlipidemia Stroke Breast cancer Father , 58 Heart disease Hyperlipidemia Alcohol abuse Sister No problems noted. Sister No problems noted. Sister No problems noted. Brother No problems noted. Maternal Grandfather Heart disease Paternal Grandfather Heart disease Maternal Grandmother Heart disease Stroke Paternal Grandmother Heart disease Stroke Son No problems noted. Son No problems noted. Daughter No problems noted. Social History Smoking/Tobacco Use Status: Former Tobacco Use tobacco type: cigarettes Quit Date: 08/12/07 Tobacco: How many years used: 26 Second Hand Exposure: Yes Smoking risk assessment performed?: Yes Alcohol Intake: former Drug use: Occasionally Substance use type: marijuana Details: Pt ingests edibles, denies inhalation of marijuana. 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 Pets and animals: Yes Pets and animals: cat(s) and farm animals Sexually active: No Do you think of yourself as: straight/heterosexual Current gender identity: male What is your relationship status?: How often do you talk on the phone with friends or family?: three or more times per week How often do you get together with friends or relatives?: three or more times per week How often do you attend scientologist or latter day services?: decline to answer Do you belong to any clubs or organized social groups?: yes Panel score (0-1 are the most socially isolated patients): 3 What type of physical activity do you participate in: walking and additional Details: PT and stretching Duration: < 15 minutes/day Frequency: daily Sophy/Temple: No preference Special sophy needs: No Seatbelt use: never Helmet use: Yes Helmet use: sometimes Drive intox or ride w/intox light truck driver: No Do you feel safe at home: Yes Do you feel safe in your relationship?: Yes Exam Narrative Exam Narrative: General: Well Developed, Awake and Alert, conversant. Skin: Warm and Dry HEENT: Head: No palpable deformities, Normocephalic Eyes: Pupils PERRLA, EOM's intact. No periorbital eccymosis or step off Ears: Canal patent. Tympanic membranes are clear . No dawson's sign, no hemptympanum. Nose/Face: Atraumatic. Facial bones nontender to palpation and stable with manipulation. Mouth/Throat: No intraoral trauma. Teeth and mandible are intact. Neck: No midline tenderness, no step off, no deformity to palpation of C-spine. Trachea midline. Chest: No surface trauma. without crepitus or deformity. Lungs clear to ausculatation bilaterally. Right upper anterior chest wall tenderness with palpation, Heart: RRR, no rubs, murmurs or gallop. Abdomen: No abrasions, ecchymosis, or surface trauma. Nondistended. Nontender to palpation no guarding, rebound, or rigidity. Pelvis: Nontender to palpation and stable to compression. Femoral pulses strong and equal Extremities: no surface trauma. Sensation intact. Peripheral pulses intact and equal. Right shoulder tenderness with palpation. Neuro: ANO x4, GCS 15, cranial nerves II through XII intact. Motor and sensory exam nonfocal. Reflexes are symmetric. Course Vital Signs Vital signs: Temperature Source Skin 11/22/22 10:53 Blood Pressure Position Sitting 11/22/22 10:53 Oxygen Delivery Method Room Air 11/22/22 10:53 Oxygen Flow Rate 0 11/22/22 10:53 Comment pain worse with movement unable to rate pain states on meds for chronic pain 11/22/22 10:53
[2022-11-22 11:06] VITALS: BP 148/85; PULSE 75; TEMP 36.7; O2SAT 94
[2022-11-22] MEDS: Lidocaine 5% Patch 1 PATCH TP (12:50)
== END 2022-11-22 12:47 | disposition home or self-care (01) ==
PROVIDERS: Emergency Provider Registered Nurse Emergency; PCP Family Medicine
DX: S43.401A Unspecified sprain of right shoulder joint, initial encounter (principal); G89.11 Acute pain due to trauma; R07.81 Pleurodynia; I10 Essential (primary) hypertension; E11.9 Type 2 diabetes mellitus without complications; J44.9 Chronic obstructive pulmonary disease, unspecified; Z79.82 Long term (current) use of aspirin; W08.XXXA Fall from other furniture, initial encounter
CPT/HCPCS: 99284; 71046; 71100; 73030

== ENCOUNTER 2023-02-05 10:41 | Outpatient (CLI) | payer OTHER, SELFPAY ==
[2023-02-05 12:53] LABS: HCT 47.3 % (40.0-50.0); HGB 15.1 g/dL (13.5-17.5); MCH 30.4 pg (27.0-33.0); MCHC 31.9 % (32.0-36.0); MCV 95 fL (80-95); MPV 10.4 fL (8.0-11.0); Platelet Count 222 10^3/uL (130-400); RBC 4.96 10^6/uL (4.36-5.78); RDW 12.8 % (11.8-14.1); RDW-SD 45.3 fL; WBC 7.21 10^3/uL (4.4-10.8)
[2023-02-05 14:49] LABS: Hemoglobin A1C 6.6 % (<5.7)
[2023-02-05 14:52] LABS: ALT 66 U/L (16-63); AST 22 U/L (15-37); Albumin 3.5 g/dL (3.4-5.0); Alkaline Phosphatase 102 U/L (46-116); Anion Gap 9.1 mmol/L (3-11); BUN 19 mg/dL (7-18); Bilirubin, Total 0.3 mg/dL (0.2-1.0); CO2 27.9 mmol/L (21.0-32.0); Calcium 8.9 mg/dL (8.5-10.1); Chloride 102 mmol/L (98-107); Glucose 208 mg/dL (74-106); Potassium 4.2 mmol/L (3.5-5.1); Sodium 139 mmol/L (136-145); TSH (W/Ref FT4) 0.44 uIU/mL (0.36-3.74); Total Protein 7.3 g/dL (6.4-8.2)
== END 2023-02-05 10:42 | disposition home or self-care (01) ==
LOC: LOS 10:41
PROVIDERS: PCP Family Medicine; Visit Provider Family Medicine
DX: E11.9 Type 2 diabetes mellitus without complications (principal); R53.1 Weakness; R63.5 Abnormal weight gain
CPT/HCPCS: 36415; 80053; 85027; 83036; 84443

== ENCOUNTER 2023-08-14 04:47 | Outpatient (CLI) | payer OTHER, SELFPAY ==
[2023-08-14 11:59] LABS: ALT 55 U/L (16-63); AST 23 U/L (15-37); Albumin 3.7 g/dL (3.4-5.0); Alkaline Phosphatase 86 U/L (46-116); Anion Gap 8.1 mmol/L (3-11); BUN 30 mg/dL (7-18); Bilirubin, Total 0.5 mg/dL (0.2-1.0); CO2 26.9 mmol/L (21.0-32.0); CREATININE 0.9 mg/dL (0.70-1.30); Calcium 9.3 mg/dL (8.5-10.1); Calculated LDL 147 mg/dL (<100); Chloride 102 mmol/L (98-107); Cholesterol 231 mg/dL (<200); Estimated GFR 97.78 (mL/min/1.73m2); Glucose 167 mg/dL (74-106); HDL Cholesterol 41 mg/dL (40-60); Potassium 4.5 mmol/L (3.5-5.1); Sodium 137 mmol/L (136-145); Total Protein 7.7 g/dL (6.4-8.2); Triglyceride 217 mg/dL (<150)
== END 2023-08-14 04:48 | disposition home or self-care (01) ==
LOC: LOS 04:47
PROVIDERS: PCP Family Medicine; Visit Provider Family Medicine
DX: I10 Essential (primary) hypertension (principal)
CPT/HCPCS: 36415; 80053; 80061

== ENCOUNTER → 2023-09-24 12:38 | Outpatient (CLI) | payer OTHER, SELFPAY ==
--- NOTE | 2023-09-24 11:30 | DI.RAD_ITS ---
Exam(s) XR KNEE RT 3V AP,LAT,GREG EXAM: XR KNEE RT 3V AP,LAT,GREG CLINICAL HISTORY: injury rt knee, S89.91XA, S99.911A. TECHNIQUE: 2D digital imaging was performed of the right knee. Three views obtained. AP, lateral an d PA tunnel views were obtained. COMPARISON: CR XR knee RT 3V AP,lat,greg from 12/07/2018 FINDINGS: Examination is limited by the exuberant bony production. BONES: No definite acute fractures present. No bony destructive lesion is seen. There is again seen prominent bony production at the inferior aspect of the patella. JOINTS: The knee is normally aligned. There are marked degenerative changes seen in the knee with olegario nt space narrowing and osteophytes present. The findings are most marked at the patellofemoral joint . There is a small joint effusion. There is chondrocalcinosis in the femoral tibial joint which can be seen with CPPD arthropathy. SOFT TISSUE: Vascular calcifications are present. IMPRESSION: 1. No definite acute fracture or dislocation. If symptoms persist a CT scan should be considered for further evaluation. 2. Marked arthrosis of the right knee. 3. Small joint effusion. DATA REPOSITORY: RADIATION DOSE DELIVERED:
--- NOTE | 2023-09-24 11:30 | DI.RAD_ITS ---
Exam(s) XR HAND LT COMPLETE EXAM: XR HAND LT COMPLETE CLINICAL HISTORY: injury lt hand, S69.92XA. TECHNIQUE: 2D digital imaging was performed of the left hand. Three views were obtained. AP, later al and oblique views were obtained. COMPARISON: No priors for comparison. FINDINGS: BONES: No acute fracture is present. No bony destructive lesion is seen. JOINTS: No dislocation present. There are mild degenerative changes in the hand. SOFT TISSUE: Normal. IMPRESSION: No acute fracture or dislocation. DATA REPOSITORY: RADIATION DOSE DELIVERED:
--- NOTE | 2023-09-24 13:05 | DI.RAD_ITS ---
Exam(s) XR ANKLE RT COMPLETE EXAM: XR ANKLE RT COMPLETE CLINICAL HISTORY: injury rt ankle, S99.911A, S89.91XA. TECHNIQUE: 2D digital imaging was performed of the right ankle. Three images were obtained. AP, la teral and oblique views were obtained. COMPARISON: CR XR ANKLE RT COMPLETE from 02/04/2019 FINDINGS: BONES: No acute fracture is present. No bony destructive lesion is seen. There is an old healed dist al right fibular fracture deformity. There is a tiny density on the dorsal aspect of the distal talu s which appears old. JOINTS: The ankle mortise is normally aligned. SOFT TISSUE: There is soft tissue swelling around the ankle. IMPRESSION: Soft tissue swelling around the ankle. No definite acute fracture or dislocation. DATA REPOSITORY: RADIATION DOSE DELIVERED:
== END ==
PROVIDERS: PCP Family Medicine; Visit Provider Family Medicine
DX: R22.41 Localized swelling, mass and lump, right lower limb (principal); S89.91XA Unspecified injury of right lower leg, initial encounter; X58.XXXA Exposure to other specified factors, initial encounter
CPT/HCPCS: 73562; 73130; 73610

== ENCOUNTER 2024-01-21 12:26 | Outpatient (CLI) | payer OTHER, SELFPAY ==
--- NOTE | 2024-01-21 12:15 | RT.EKG_ITS ---
APPROVED REPORT Exam: Resting ECG Reason for Exam: hypotension Patient Location: O HR:83 bpm ECG Measurements Heart Rate 83 AXIS [place] 138 P 59 QRSd 142 QRS 74 QT 396 T 46 QTc 466 Conclusion Sinus rhythm...normal P axis, V-rate 50- 99 Right bundle branch block...QRSd>120, terminal axis(90,270)
== END 2024-01-21 12:27 | disposition home or self-care (01) ==
LOC: DI.CM 12:26
PROVIDERS: PCP Family Medicine; Visit Provider Family Medicine
DX: R00.1 Bradycardia, unspecified (principal)
CPT/HCPCS: 93010

== ENCOUNTER 2024-01-21 13:45 | Observation (INO) | payer OTHER, SELFPAY ==
[2024-01-21] VITALS (19 sets, daily range): BP systolic 80–175; BP diastolic 45–132; PULSE 70–91; RESP 8–18; TEMP 36.5–37.2; O2SAT 88–98
--- NOTE | 2024-01-21 13:45 | RT.EKG_ITS ---
APPROVED REPORT Exam: Resting ECG Reason for Exam: dizziness Patient Location: E HR:79 bpm ECG Measurements Heart Rate 79 AXIS MS 160 P 49 QRSd 135 QRS 65 QT 399 T 37 QTc 458 Conclusion Sinus rhythm. normal axis RBBB no stemi
--- NOTE | 2024-01-21 14:15 | DI.CT_ITS ---
Exam(s) CT HEAD WO EXAM: CT HEAD WO CLINICAL HISTORY: dizzy. TECHNIQUE: Imaging Protocol: Axial computed tomography images with coronal and sagittal reformatted images were created and reviewed COMPARISON: CT CT HEAD CERVICAL SPINE WO from 05/29/2020 FINDINGS: Ventricles and Extra axial spaces: Normal in size and morphology for the patient's age. Hemorrhage: None. Cerebral parenchyma: There is a stable lucency in the left basal ganglia. May represent an old lacun ar infarct versus a prominent perivascular space. No acute mass effect. No evidence of an acute ter ritorial infarct. Midline shift: None. Brainstem/Cerebellum: Normal. Calvarium: Normal. Visualized Paranasal sinuses/Mastoids: Clear. Soft Tissues: Unremarkable. IMPRESSION: No acute intracranial process. RADIATION DOSE DELIVERED: 862.83mGy.cm Total DLP DATA REPOSITORY: All CT scans at this facility are submitted to the National Radiology Data Registry (NRDR) Dose Index Registry (DIR) with the [employer] (ACR). RADIATION OPTIMIZATION: All CT scans at this facility use at least one of these dose optimization te chniques: automated exposure control; mA and/or kV adjustment per patient size (includes targeted exa ms where dose is matched to clinical indication); or iterative reconstruction.
--- NOTE | 2024-01-21 14:26 | ED.GENADUL_ITS ---
Discharge Plan Disposition Patient Disposition: Admit to [facility] Condition: Stable Discharge Details Clinical Impression: TEMI (acute kidney injury), Dizziness Primary Care Provider: Rhoda Montes ED Provider: Eliu Mojica Home Meds and New Rx's Prescriptions: No Action aspirin 81 mg tablet,delayed release (DR/EC) 81 mg PO DAILY Ozempic 1 mg/dose (4 mg/3 mL) pen injector 1 mg subcut QWEEK MDD 1 mg Qty: 9 3RF Rx Instructions: Inject 1 mg subcutaneously, once weekly as directed. sildenafil 100 mg tablet 100 mg PO DAILY PRN (Reason: sexual activity) Qty: 30 4RF Rx Instructions: administer 30 minutes to 4 hours before activity NARCOTIC CONTRACT nitroglycerin 0.4 MG tablet, sublingual 0.4 mg Sublingual PRN PRNQty: 25 atorvastatin 80 mg tablet 80 mg PO HS Qty: 90 12RF duloxetine [Cymbalta] 60 mg capsule,delayed release(DR/EC) 60 mg PO DAILY Qty: 90 12RF lisinopril-hydrochlorothiazide 20-12.5 mg tablet 1 tab PO DAILY Qty: 90 12RF metaxalone 800 mg tablet 800 mg PO TID Qty: 90 12RF metoprolol succinate 50 mg tablet extended release 24 hr 50 mg PO DAILY Qty: 90 4RF Hold Instructions: Changed by Provider potassium chloride 20 mEq tablet,ER particles/crystals 40 meq PO BID Qty: 360 12RF oxycodone-acetaminophen [Endocet] 10-325 mg tablet 1 tab PO QID MDD 4 PRN (Reason: pain) Qty: 92 0RF HPI General Date/Time Provider Initiated Documentation: 01/21/24 14:04 . Limitations to Documentation: no limitations . Information obtained by: patient and old records reviewed . HPI Narrative: 58-year-old gentleman with past medical history of chronic back pain, hypertension, COPD presents for evaluation of dizziness. He reports over the last month he has been having dizzy symptoms. He these are just associated with dizziness. He denies any visual changes, nausea or vomiting. He reports that he does not have any preceding symptoms of chest pain or shortness of breath. He does not feel that there are any exacerbating or relieving symptoms of the dizziness. When he experiences dizziness it is brief and resolved spontaneously. This morning he was feeling dizzy and he was at his doctor's o ffice dropping off eggs so he thought he should get his blood pressure checked. They were concerned because his heart rate was low and his blood pressure was also low. Other than the dizziness, the patient was not having any additional symptoms. Related Data Home Medications Medication Instructions Recorded Confirmed Narcotic Contract 06/23/13 01/21/24 nitroglycerin 0.4 mg sublingual 0.4 mg sublingual PRN PRN #25 12/18/16 01/21/24 tablet tab-caps aspirin 81 mg tablet,delayed 81 mg PO DAILY 07/07/18 01/21/24 release atorvastatin 80 mg tablet 80 mg PO HS #90 tab-caps 04/19/23 01/21/24 duloxetine 60 mg capsule,delayed 60 mg PO DAILY #90 tab-caps 04/19/23 01/21/24 release (Cymbalta) lisinopril 20 1 tab PO DAILY #90 tab-caps 04/19/23 01/21/24 mg-hydrochlorothiazide 12.5 mg tablet metaxalone 800 mg tablet 800 mg PO TID #90 tab-caps 04/19/23 01/21/24 metoprolol succinate 50 mg 50 mg PO DAILY #90 tabs 04/19/23 01/21/24 tablet,extended release 24 hr potassium chloride 20 mEq 40 meq (2 x 20 mEq) PO BID #360 04/19/23 01/21/24 tablet,extended release(part/cryst) tab-caps Ozempic 1 mg/dose (4 mg/3 mL) 1 mg (0.75 mL) subcut QWEEK #9 mL 08/13/23 01/21/24 subcutaneous pen injector (semaglutide) sildenafil 100 mg tablet 100 mg PO DAILY PRN sexual 08/13/23 01/21/24 activity #30 tabs oxycodone-acetaminophen 10 mg-325 1 tab PO QID PRN pain #92 tabs 01/16/24 01/21/24 mg tablet (Endocet) Previous Rx's Medication Instructions Recorded atorvastatin 80 mg tablet 80 mg PO HS #90 tab-caps 04/19/23 duloxetine 60 mg capsule,delayed 60 mg PO DAILY #90 tab-caps 04/19/23 release (Cymbalta) lisinopril 20 1 tab PO DAILY #90 tab-caps 04/19/23 mg-hydrochlorothiazide 12.5 mg tablet metaxalone 800 mg tablet 800 mg PO TID #90 tab-caps 04/19/23 metoprolol succinate 50 mg 50 mg PO DAILY #90 tabs 04/19/23 tablet,extended release 24 hr potassium chloride 20 mEq 40 meq (2 x 20 mEq) PO BID #360 04/19/23 tablet,extended release(part/cryst) tab-caps Ozempic 1 mg/dose (4 mg/3 mL) 1 mg (0.75 mL) subcut QWEEK #9 mL 08/13/23 subcutaneous pen injector (semaglutide) sildenafil 100 mg tablet 100 mg PO DAILY PRN sexual 08/13/23 activity #30 tabs oxycodone-acetaminophen 10 mg-325 1 tab PO QID PRN pain #92 tabs 01/16/24 mg tablet (Endocet) Allergies Allergy/AdvReac Type Severity Reaction Status Date / Time ibuprofen AdvReac Hematuria Verified 01/21/24 13:55 General Stated Complaint: Dizzy/Sync YAMILE: 3 Exam Narrative Exam Narrative: Review of Systems: All systems reviewed & are unremarkable except as noted in HPI and below Well-developed, no acute distress NCAT PERRL, normal conjunctiva , no nystagmus RRR, no murmur Unlabored respiratory effort, clear bilaterally Nondistended abdomen, soft nontender Extremities w/o deformity, no cyanosis, no edema No rashes or lesions. no focal neurologic deficits Appropriate mood and affect Course Vital Signs Vital signs: Vital Signs Temperature 36.6 C 01/21/24 13:49 Pulse 85 01/21/24 13:49 Respiratory Rate 17 01/21/24 13:49 Blood Pressure 80/45 L 01/21/24 13:49 Pulse Oximetry 93 01/21/24 13:49 Temperature 36.6 C 01/21/24 13:49 Temperature Source Temporal Artery Scan 01/21/24 13:49 Pulse 85 01/21/24 13:49 Respiratory Rate 17 01/21/24 13:49 Blood Pressure 80/45 L 01/21/24 13:49 Blood Pressure Position Sitting 01/21/24 13:49 Pulse Oximetry 93 01/21/24 13:49 Oxygen Delivery Method Room Air 01/21/24 13:49 Oxygen Flow Rate 0 01/21/24 13:49 Pain Level 0 01/21/24 13:49 Medical Decision Making Emergent evaluation of symptomatic bradycardia. Patient was at his PCPs office with a report of feeling dizzy. They documented bradycardia and hypotension at that time. The patient is asymptomatic currently and his vital signs have also normalized. He does not have any associated chest pain or any stroke symptoms during this episode of dizziness. Initial differential includes cardiac dysrhythmia, CVA, electrolyte derangement, dehydration. Plan for lab work, telemetry monitoring. Will get CT scan of the head been having ongoing dizziness for the last month. 1445 Reviewed prior EKG obtained in clinic. And the heart rate was 83, sinus with right bundle branch block. Not significantly different from the EKG obtained on arrival to the emergency department. EKG prior to that was in 2009 and did not hhave a RBBB. 1530 Lab work reviewed. No leukocytosis or anemia. The patient has an elevation in BUN and creatinine. In comparison to August, this is significantly elevated from baseline. He does not have elevation in troponin or BNP. Thyroid study is within normal limits. Unclear if this renal dysfunction is secondary to aggressive blood pressure control versus dehydration. Will give IV fluids. Given his earlier symptoms of bradycardia and hypotension as well as dizziness, I do feel the patient needs admission for telemetry monitoring for cardiac dysrhythmia and management of his new TEMI. Discussed with the hospitalist who accepts the patient for admission Medical Records Medical records reviewed: Yes I reviewed the patient's medical records. Lab Data Lab results reviewed: Yes I reviewed the patient's lab results. Quality:SDOH Health Related Social Needs: 2 No Data to Display PFSH All Active Problems (Updated 01/21/24 @ 15:26 by Eliu Mojica MD) Dizziness (Acute) TEMI (acute kidney injury) (Acute) Bradycardia (Acute) Osteoarthritis of left knee (Acute) Weakness (Acute) Recurrent skin cancer (Acute) Pre-diabetes (Acute) Skin lesion of neck (Acute) Weight gain (Acute) Thoracic back sprain (Acute) Lumbar dysfunction (Acute) Disability examination (Acute) Spinal stenosis of lumbar region (Acute) Primary osteoarthritis of right knee (Chronic) Polyp of colon (Chronic 08/28/13) 2013 DR. SANCHEZ; TUBULAR ADENOMA 2016 2 hyperplastic polyps, no adenoma Hyperlipidemia (Chronic 11/10/03) Essential hypertension (Chronic 06/09/13) Depressive disorder (Chronic 10/04/08) Chronic pain syndrome (Chronic 03/27/12) MRI 2014 - central L4-5 disc herniation referralto [facility]/epidural MULTIPLE INTERVENTIONS in past 06/09/13; NARCOTIC CONTRACT 03/25/17; Controlled substance agreement-renewed Chronic obstructive lung disease (Chronic 06/11/99) Annual physical exam (Acute 12/18/16) Medical History Diabetes mellitus Back pain Fracture of distal end of right fibula (12/05/18) Impaired fasting glucose (11/10/03) 11/13 IFG-112; XPQ2R-5.9 Elev transaminase/LDH (05/11/03) 05/14 ELEVATED ALT Degeneration of cervical intervertebral disc (09/11/02) 09/14 ?DISC INJURY-DISCOGRAM; DDD @ L4-5 L5-S1 Chest pain on exertion (07/20/16) Negative ETT, but did develop CP during test 07/27. Further w/u in pregress. Neg MPI 09/29 HTN (hypertension) COPD (chronic obstructive pulmonary disease) Chronic pain syndrome Degeneration of cervical intervertebral disc Surgical History History of surgery two lumbar disc repairs, nuclealplasty KNEE REPAIR (~1981) Repair of inguinal hernia (~1978) LEFT FINGER REPAIR (~2010) Colonoscopy - MAC (01/25/17) Family History Mother , 63 Diabetes Heart disease Hyperlipidemia Stroke Breast cancer Father , 58 Heart disease Hyperlipidemia Alcohol abuse Sister No problems noted. Sister No problems noted. Sister No problems noted. Brother No problems noted. Maternal Grandfather Heart disease Paternal Grandfather Heart disease Maternal Grandmother Heart disease Stroke Paternal Grandmother Heart disease Stroke Son No problems noted. Son No problems noted. Daughter No problems noted. Social History Smoking/Tobacco Use Status: Former Tobacco Use tobacco type: cigarettes Quit Date: 08/12/07 Tobacco: How many years used: 26 Second Hand Exposure: Yes Smoking risk assessment performed?: Yes Alcohol Intake: former Drug use: Occasionally Substance use type: marijuana Details: Pt ingests edibles, denies inhalation of marijuana. 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 Pets and animals: Yes Pets and animals: cat(s) and farm animals Sexually active: No Do you think of yourself as: straight/heterosexual Current gender identity: male What is your relationship status?: How often do you talk on the phone with friends or family?: three or more times per week How often do you get together with friends or relatives?: three or more times per week How often do you attend jewish or pentecostalism services?: decline to answer Do you belong to any clubs or organized social groups?: yes Panel score (0-1 are the most socially isolated patients): 3 What type of physical activity do you participate in: walking and additional Details: PT and stretching Duration: < 15 minutes/day Frequency: daily Sophy/Jehovah'S Witness: No preference Special sophy needs: No Seatbelt use: never Helmet use: Yes Helmet use: sometimes Drive intox or ride w/intox 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
[2024-01-21 14:28] LABS: Abs Immature Grans 0.04 10^3/uL (0.0-0.06); Absolute Basophil Count 0.06 10^3/uL (0.0-0.2); Absolute Eosinophil Count 0.09 10^3/uL (0.0-0.7); Absolute Lymphocyte Count 2.03 10^3/uL (1.2-3.4); Absolute Monocyte Count 1.05 10^3/uL (0.1-0.8); Basophils % 0.6 %; Eosinophils % 0.9 %; HCT 43.6 % (40.0-50.0); HGB 14.5 g/dL (13.5-17.5); Immature Grans % 0.4 %; MCH 30.5 pg (27.0-33.0); MCHC 33.3 % (32.0-36.0); MCV 92 fL (80-95); MPV 10.2 fL (8.0-11.0); Monocytes % 10.3 %; Neutrophils % 67.8 %; Platelet Count 252 10^3/uL (130-400); RBC 4.76 10^6/uL (4.36-5.78); RDW 13.3 % (11.8-14.1); RDW-SD 45.2 fL; WBC 10.17 10^3/uL (4.4-10.8)
[2024-01-21 14:57] LABS: ALT 67 U/L (16-63); AST 73 U/L (15-37); Albumin 3.5 g/dL (3.4-5.0); Alkaline Phosphatase 82 U/L (46-116); Anion Gap 8.8 mmol/L (3-11); BUN 44 mg/dL (7-18); Bilirubin, Total 0.5 mg/dL (0.2-1.0); CO2 27.2 mmol/L (21.0-32.0); CREATININE 2.2 mg/dL (0.70-1.30); Calcium 9.3 mg/dL (8.5-10.1); Chloride 103 mmol/L (98-107); Estimated GFR 33.45 (mL/min/1.73m2); Glucose 104 mg/dL (74-106); Magnesium 2.2 mg/dL (1.8-2.4); NT-proBNP 251 pg/mL (<300); Potassium 4.9 mmol/L (3.5-5.1); Sodium 139 mmol/L (136-145); TSH 0.89 uIU/Ml (0.36-3.74); Troponin I < 50 ng/L (< or =60)
--- NOTE | 2024-01-21 15:15 | DI.CT_ITS ---
Exam(s) CT CHEST/ABD/PEL WO EXAM: CT CHEST/ABD/PEL WO CLINICAL HISTORY: Elevated creatinine, bradycardia, presyncope. TECHNIQUE: Imaging Protocol: Axial computed tomography images with coronal and sagittal reformatted images were created and reviewed CONTRAST MATERIAL: Intravenous: none Oral: None COMPARISON: CT CT THORACIC LUMBAR SPINE REC from 05/29/[address] CHEST/ABD/PEL W from 05/29/2020 FINDINGS: CHEST: LUNGS: No infiltrates nor pleural effusions. There is a tiny 2 mm nodule in the right middle lobe wh ich is fissure adjacent and unchanged from CT scan of May 2020. MEDIASTINUM: No obvious hilar nor mediastinal adenopathy. Visualized thyroid unremarkable. CARDIAC: Heart size is normal. There is no pericardial effusion.Caliber of the thoracic aorta is wit hin normal limits. OSSEOUS: No significant osseous lesions.No fractures. Disc space narrowing in the lower lumbar spine and mild degenerative anterolisthesis of L4 upon L5.. ABDOMEN: There is no ascites. LIVER: There is a benign cyst in the lateral aspect of the right hepatic lobe which is unchanged from CT scan of May 2020. Another small unchanged cyst is noted in the left hepatic lobe. There are no dilated intrahepatic ducts. GALLBLADDER/BILIARY: No obvious gallbladder pathology. CBD is not dilated. PANCREAS: There is a solitary unchanged tiny 1 mm calcification in the pancreatic head. No associate d mass. In addition, there is a partially exophytic lesion at the level the pancreatic tail measurin g 1.3 by 1.3 cm which is more evident than on the prior study but difficult to evaluate without IV co ntrast injection. No other focal pancreatic findings. No evidence of pancreatitis. The pancreatic duct is not dilated. SPLEEN: Spleen is not enlarged. No obvious intrasplenic lesions. ADRENALS: There are no significant adrenal masses. KIDNEYS: No calculi nor hydronephrosis. No obvious solid renal masses. No cysts evident. ABDOMINAL AORTA: Abdominal aorta and iliac arteries are not enlarged. LYMPH NODES: There is no retroperitoneal nor para-aortic adenopathy. ABDOMINAL WALL/GI: There is a fat only containing left inguinal hernia, similar to previous. No evidence of bowel obstruction. PELVIS: LYMPH NODES: There is no intrapelvic nor inguinal adenopathy. GI: No evidence of appendicitis.No evidence of sigmoid diverticulitis. URINARY BLADDER: No calculi nor obvious masses evident REPRODUCTIVE: Prostate not enlarged. Seminal vesicles unremarkable. OSSEOUS: No significant osseous lesions. No fractures. IMPRESSION: 1. No significant acute intrathoracic findings. Tiny benign-appearing fissure related 2 millimeter r ight middle lobe nodule is unchanged from prior CT scan of 05/29/2020 2. No evidence of acute inflammatory process in the abdomen and pelvis and no evidence of bowel obstr uction, free air, nor abscess. 3. There is 1.3 x 1.3 cm partially cystic appearing exophytic lesion at the tail the pancreas, diffic ult to evaluate without IV contrast. Recommend follow-up contrast infused pancreatic protocol MRI. Study 1st read by [facility]. Final report and recommendations called by myself to hospitalist 01/22/2024 8:50 a.m. RADIATION DOSE DELIVERED: 1,796.44mGy.cm Total DLP DATA REPOSITORY: All CT scans at this facility are submitted to the National Radiology Data Registry (NRDR) Dose Index Registry (DIR) with the [employer] (ACR). RADIATION OPTIMIZATION: All CT scans at this facility use at least one of these dose optimization te chniques: automated exposure control; mA and/or kV adjustment per patient size (includes targeted exa ms where dose is matched to clinical indication); or iterative reconstruction.
[2024-01-21] MEDS: Lactated Ringers 1,000 ML 1000 ML IV (15:55)
--- NOTE | 2024-01-21 19:28 | W.PM.HP.N ---
Date of service: 01/21/24 Time of Service: 15:00 Assessment and Plan Assessment and plan (1) Dizziness: Status: Acute Assessment and plan: Patient was at PCP office and became acutely dizzy. VS were checked and he was found to be bradycardic and hypotensive. He was sent to the ED Not hypotensive or bradycardic in ED Telemetry CT chest abd pelvis pending Urine pending (2) TEMI (acute kidney injury): Status: Acute Assessment and plan: Creatinine 2.2 BUN 44 Baseline is 0.9/30 CT abd/pelvis - pending Urinalysis - pending LR 150 ml/h (3) Bradycardia: Status: Acute Assessment and plan: At PCP office heart rate in the low 40s No chest pain, c/o dizziness at the time of bradycardia at PCP office. Normal sinus rhythm in the ED Telemetry Discharge with event monitor (ordered) CT chest pending History of Present Illness History of Present Illness Chief Complaint: Dizziness Narrative: This is a 58 year old male patient with past medical? history significant for, not limited to diabetes, obesity, chronic thoracic back pain, chronic pain syndrome, for which he takes oxycodone, hyperlipidemia, hypertension, depression, and COPD who presented to the [facility] ED for evaluation of symptomatic bradycardia. Patient was at his primary care physician's office, he experienced dizziness, leading his vital signs being measured and to the documentation of bradycardia and hypotension. However, at the time of evaluation in the emergency department, the patient was asymptomatic and his vital signs had normalized. There were no associated chest pain or stroke symptoms during the episode of dizziness. Patient reports he is a druggy and alcoholic and therefore does not drink alcohol or do any drugs. He does take oxycodone as prescribed. He also uses THC gummies for his chronic pain. Patient stated he has felt dizzy and has had plenty of falls since winter. He doesn't know if he gets dizzy and then falls or just falls. Today he was driving his car and had to pin puller because he was dizzy and felt like he would faint. Patient denied palpitations, racing heart, chest pain, shortness of breath. Patient denied any recent illnesses. No nausea, vomiting, fever, abdominal pain, headache, no ear aches, sore throat, no history of aneurysm. Lab results revealed no leukocytosis or anemia, but there was an elevation in blood urea nitrogen and creatinine levels compared to baseline, suggestive of acute kidney injury. There was no elevation in troponin or brain natriuretic peptide (BNP), and thyroid studies were within normal limits. It was uncertain whether the renal dysfunction was secondary to aggressive blood pressure control or dehydration. Head CT as read by the radiologist: no acute intracranial process. The patient's prior electrocardiogram showed sinus rhythm with right bundle branch block consistent with the current EKG findings. There were no significant changes in the EKG pattern over time. Patient is placed on observation status on the medical floor for further testing and treatment. Patient is a full code.?? Patient agrees with plan of care. Top of Form Review of Systems All systems reviewed & are unremarkable except as noted in HPI and below PFSH All Active Problems (Updated 01/21/24 @ 15:26 by Eliu Mojica MD) Dizziness (Acute) TEMI (acute kidney injury) (Acute) Bradycardia (Acute) Osteoarthritis of left knee (Acute) Weakness (Acute) Recurrent skin cancer (Acute) Pre-diabetes (Acute) Skin lesion of neck (Acute) Weight gain (Acute) Thoracic back sprain (Acute) Lumbar dysfunction (Acute) Disability examination (Acute) Spinal stenosis of lumbar region (Acute) Primary osteoarthritis of right knee (Chronic) Polyp of colon (Chronic 08/28/13) 2013 DR. SANCHEZ; TUBULAR ADENOMA 2016 2 hyperplastic polyps, no adenoma Hyperlipidemia (Chronic 11/10/03) Essential hypertension (Chronic 06/09/13) Depressive disorder (Chronic 10/04/08) Chronic pain syndrome (Chronic 03/27/12) MRI 2013 - central L4-5 disc herniation referralto Maggnitdottir/epidural MULTIPLE INTERVENTIONS in past 06/09/13; NARCOTIC CONTRACT 03/25/17; Controlled substance agreement-renewed Chronic obstructive lung disease (Chronic 06/11/99) Annual physical exam (Acute 12/18/16) Medical History Diabetes mellitus Back pain Fracture of distal end of right fibula (12/05/18) Impaired fasting glucose (11/10/03) 11/13 IFG-112; AGU0D-7.9 Elev transaminase/LDH (05/11/03) 05/14 ELEVATED ALT Degeneration of cervical intervertebral disc (09/11/02) 09/14 ?DISC INJURY-DISCOGRAM; DDD @ L4-5 L5-S1 Chest pain on exertion (07/20/16) Negative ETT, but did develop CP during test 07/27. Further w/u in pregress. Neg MPI 09/29 HTN (hypertension) COPD (chronic obstructive pulmonary disease) Chronic pain syndrome Degeneration of cervical intervertebral disc Surgical History History of surgery two lumbar disc repairs, nuclealplasty KNEE REPAIR (~1981) Repair of inguinal hernia (~1978) LEFT FINGER REPAIR (~2010) Colonoscopy - MAC (01/25/17) Family History Mother , 63 Diabetes Heart disease Hyperlipidemia Stroke Breast cancer Father , 58 Heart disease Hyperlipidemia Alcohol abuse Sister No problems noted. Sister No problems noted. Sister No problems noted. Brother No problems noted. Maternal Grandfather Heart disease Paternal Grandfather Heart disease Maternal Grandmother Heart disease Stroke Paternal Grandmother Heart disease Stroke Son No problems noted. Son No problems noted. Daughter No problems noted. Social History Smoking/Tobacco Use Status: Former Tobacco Use tobacco type: cigarettes Quit Date: 08/12/07 Tobacco: How many years used: 26 Second Hand Exposure: Yes Smoking risk assessment performed?: Yes Alcohol Intake: former Drug use: Occasionally Substance use type: marijuana Details: Pt ingests edibles, denies inhalation of marijuana. 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 Pets and animals: Yes Pets and animals: cat(s) and farm animals Sexually active: No Do you think of yourself as: straight/heterosexual Current gender identity: male What is your relationship status?: How often do you talk on the phone with friends or family?: three or more times per week How often do you get together with friends or relatives?: three or more times per week How often do you attend restorationist or buddhism services?: decline to answer Do you belong to any clubs or organized social groups?: yes Panel score (0-1 are the most socially isolated patients): 3 What type of physical activity do you participate in: walking and additional Details: PT and stretching Duration: < 15 minutes/day Frequency: daily Sophy/Oriental Orthodox: No preference Special sophy needs: No Seatbelt use: never Helmet use: Yes Helmet use: sometimes Drive intox or ride w/intox substitute bus driver: No Do you feel safe at home: Yes Do you feel safe in your relationship?: Yes Meds Allergies and Home Medications Allergies Allergy/AdvReac Type Severity Reaction Status Date / Time ibuprofen AdvReac Hematuria Verified 01/21/24 16:54 Home Medications Medication Instructions Recorded Confirmed Type Narcotic Contract 06/23/13 01/21/24 History nitroglycerin 0.4 mg sublingual 0.4 mg sublingual PRN PRN #25 12/18/16 01/21/24 History tablet tab-caps aspirin 81 mg tablet,delayed 81 mg PO DAILY 07/07/18 01/21/24 History release atorvastatin 80 mg tablet 80 mg PO HS #90 tab-caps 04/19/23 01/21/24 Rx duloxetine 60 mg capsule,delayed 60 mg PO DAILY #90 tab-caps 04/19/23 01/21/24 Rx release (Cymbalta) lisinopril 20 1 tab PO DAILY #90 tab-caps 04/19/23 01/21/24 Rx mg-hydrochlorothiazide 12.5 mg tablet metaxalone 800 mg tablet 800 mg PO TID #90 tab-caps 04/19/23 01/21/24 Rx metoprolol succinate 50 mg 50 mg PO DAILY #90 tabs 04/19/23 01/21/24 Rx tablet,extended release 24 hr potassium chloride 20 mEq 40 meq (2 x 20 mEq) PO BID #360 04/19/23 01/21/24 Rx tablet,extended release(part/cryst) tab-caps Ozempic 1 mg/dose (4 mg/3 mL) 1 mg (0.75 mL) subcut QWEEK #9 mL 08/13/23 01/21/24 Rx subcutaneous pen injector (semaglutide) sildenafil 100 mg tablet 100 mg PO DAILY PRN sexual 08/13/23 01/21/24 Rx activity #30 tabs oxycodone-acetaminophen 10 mg-325 1 tab PO QID PRN pain #92 tabs 01/16/24 01/21/24 Rx mg tablet (Endocet) Exam Narrative Exam Narrative: Vital signs and nurses notes reviewed. Const General: cooperative, healthy appearing, comfortable, no acute distress and well developed Orientation: oriented x3 [facility] Head: normal to inspection Ears: hearing grossly normal bilaterally, external ears normal and TM's normal bilaterally General nose exam: external nose normal and nares normal Face and sinus: normal facial exam Mouth: oral mucosae normal, lip normal and tongue normal Teeth and gingiva: dentition normal Throat: posterior oropharynx normal Eyes General: appearance normal, both eyes and all related structures Alignment and Position: alignment normal Eyelids: eyelids normal Conjunctivae: conjunctivae normal Sclera: sclerae normal Cornea: corneas normal Pupils: PERRL EOM: EOM intact bilaterally Direct ophthalmoscopy: normal light reflex Neck Neck: normal visual inspection, full ROM and no lymphadenopathy Thyroid: thyroid normal Carotids: normal carotid upstroke Chest Chest: normal inspection of the chest, normal palpation of entire chest wall, no tenderness and No rash Resp Effort & Inspection: normal respiratory effort and able to speak in complete sentences Auscultation: clear to auscultation bilaterally Cardio Jugular venous pressure: no JVD Rate: regular rate Rhythm: regular rhythm Heart Sounds: S1 normal and S2 normal GI Inspection: normal to inspection, no edema, distended, obesity, no visible herniation and no visible pulsation Palpation: soft, no hepatosplenomegaly, no guarding, nontender and No ascites Skin General skin exam: no rashes or lesions noted Neuro General: patient oriented x3 Cranial Nerves: CN's II-XI intact bilaterally Cognition: normal cognition Speech: speech normal Motor: muscle tone normal throughout Psych Appearance: grossly normal Mental Status: mental status grossly normal Speech and Movement: speech and movement normal Mood: congruent mood Affect: normal affect Attitude: cooperative and avoids eye contact Thought Process: normal Thought Content: normal Insight: insight good Judgment: judgment good Results Labs 01/21/24 14:15 01/21/24 14:15 Labs: Laboratory Results - last 24 hr 01/21/24 01/21/24 14:15 14:15 WBC 10.17 RBC 4.76 Hgb 14.5 Hct 43.6 MCV 92 MCH 30.5 MCHC 33.3 RDW 13.3 Plt Count 252 MPV 10.2 Immature Gran % 0.4 Neutrophils % 67.8 Lymphocytes % 20.0 Monocytes % 10.3 Eosinophils % 0.9 Basophils % 0.6 Nucleated RBC % 0.0 Absolute Neutrophils 6.90 H Absolute Lymphocytes 2.03 Absolute Monocytes 1.05 H Absolute Eosinophils 0.09 Absolute Basophils 0.06 Sodium 139 Potassium 4.9 Chloride 103 Carbon Dioxide 27.2 Anion Gap 8.8 BUN 44 H Creatinine 2.2 H Est GFR (CKD-EPI 2020) 33.45 Glucose 104 Calcium 9.3 Magnesium 2.2 Total Bilirubin 0.5 AST 73 H ALT 67 H Alkaline Phosphatase 82 Troponin I < 50 NT-Pro-B Natriuret Pep 251 Cancelled Total Protein 7.0 Albumin 3.5 TSH 0.89 Last Vital Signs Temp 36.8 C 01/21/24 18:44 Pulse 88 01/21/24 18:44 Resp 17 01/21/24 18:44 BP 111/60 01/21/24 18:44 Pulse Ox 97 01/21/24 18:44 Time Spent Time spent with Patient: 40-54 minutes Time was spent: preparing to see the patient(eg.review tests), obtaining and/or reviewing separately otained hiistory, ordering medications,tests, procedures, referring, communicating with other health assistant child care teacher, indepentently interpreting results, counseling the patient and care coordination
[2024-01-21] MEDS: Lactated Ringers 1,000 ML 125 ML IV (19:33)
[2024-01-21] MEDS: Atorvastatin 40 MG TAB 80 MG PO (19:34)
[2024-01-21] MEDS: oxyCODONE 5 mg/Acetaminophen 325 mg TAB 2 TAB PO (19:40)
[2024-01-21] MEDS: Normal Saline Flush 10 ML SYR IVP (19:53)
--- NOTE | 2024-01-21 21:42 | DI.VRAD_ITS ---
PROCEDURE INFORMATION: Exam: CT Chest Without Contrast; Diagnostic Exam date and time: 01/21/2024 8:07 PM Age: 58 years old Clinical indication: Other: Elevated creatinine, bradycardia, presyncope TECHNIQUE: Imaging protocol: Diagnostic computed tomography of the chest without contrast. COMPARISON: CT CHEST/ABD/PEL W 05/29/2020 7:25 PM FINDINGS: Lungs: No consolidation. 2 mm nodule right middle lobe adjacent to the minor fissure. 3 mm nodule right lower lobe series 2/35. Paraseptal emphysematous changes. Pleural spaces: Unremarkable. No pneumothorax. No pleural effusion. Heart: Unremarkable. No cardiomegaly. No pericardial effusion. Coronary arteries: Coronary artery calcifications. Lymph nodes: Unremarkable. No enlarged lymph nodes. Vasculature: Aorta demonstrates mild atherosclerotic calcification. Diaphragm: Small hiatal hernia. Bones/joints: Unremarkable. No acute fracture. Soft tissues: Unremarkable. IMPRESSION: 1. No acute abnormality. 2. 2 mm nodule right middle lobe adjacent to the minor fissure. 3 mm nodule right lower lobe series 2/35. PROCEDURE INFORMATION: Exam: CT Abdomen And Pelvis Without Contrast Exam date and time: 01/21/2024 8:07 PM Age: 58 years old Clinical indication: Other: Elevated creatinine, bradycardia, presyncope TECHNIQUE: Imaging protocol: Computed tomography of the abdomen and pelvis without contrast. COMPARISON: CT CHEST/ABD/PEL W 05/29/2020 7:25 PM FINDINGS: Liver: Several hepatic cysts largest 1.8 cm. Gallbladder and bile ducts: Normal. No calcified stones. No ductal dilation. Pancreas: 1.3 cm indeterminate lesion tail of the pancreas, possibly a splenule. Spleen: Spleen unremarkable. Adrenal glands: Normal. No mass. Kidneys and ureters: Normal. No hydronephrosis. Stomach and bowel: Above average stool throughout the colon. No evidence of intestinal perforation or obstruction. Appendix: No evidence of appendicitis. Intraperitoneal space: Unremarkable. No free air. No significant fluid collection. Vasculature: Aorta demonstrates mild atherosclerotic calcification. No abdominal aortic aneurysm. Lymph nodes: Unremarkable. No enlarged lymph nodes. Urinary bladder: Unremarkable as visualized. Reproductive: Unremarkable as visualized. Bones/joints: Unremarkable. No acute fracture. Soft tissues: Fat-containing left inguinal hernia without incarceration. IMPRESSION: 1. No acute abnormality. 2. 1.3 cm indeterminate lesion tail of the pancreas, possibly a splenule. Dictated and Authenticated by: Ruy Schulz MD. Ordering:SERENITY Perez MD
[2024-01-21] MEDS: Enoxaparin 40 MG/0.4 ML SYR SC (22:21)
[2024-01-21 23:18] LABS: Bilirubin Negative (Negative); Blood Negative (Negative); Clarity Clear (Clear); Glucose Negative (Negative); Ketones Negative (Negative); Leukocyte Esterase Negative (Negative); Nitrite Negative (Negative); Specific Gravity 1.015 (1.005-1.025); Urobilinogen 0.2 mg/dL (Up to 0.2); pH 5.5 (5-8)
[2024-01-22] VITALS (7 sets, daily range): BP systolic 111–163; BP diastolic 74–88; PULSE 79–95; RESP 16–20; TEMP 36.3–36.8; O2SAT 95–98
[2024-01-22] MEDS: Lactated Ringers 1,000 ML 125 ML IV ×2 (03:42→13:04)
[2024-01-22] MEDS: oxyCODONE 5 mg/Acetaminophen 325 mg TAB 1 TAB PO ×3 (04:59→15:02)
[2024-01-22 06:27] LABS: Abs Immature Grans 0.02 10^3/uL (0.0-0.06); Absolute Basophil Count 0.04 10^3/uL (0.0-0.2); Absolute Eosinophil Count 0.13 10^3/uL (0.0-0.7); Absolute Lymphocyte Count 2.16 10^3/uL (1.2-3.4); Absolute Monocyte Count 0.69 10^3/uL (0.1-0.8); Basophils % 0.6 %; HCT 43.5 % (40.0-50.0); HGB 14.4 g/dL (13.5-17.5); Immature Grans % 0.3 %; Lymphocytes % 32.5 %; MCHC 33.1 % (32.0-36.0); MCV 94 fL (80-95); MPV 10.3 fL (8.0-11.0); Monocytes % 10.4 %; Neutrophils % 54.2 %; Platelet Count 210 10^3/uL (130-400); RBC 4.65 10^6/uL (4.36-5.78); RDW 13.4 % (11.8-14.1); RDW-SD 45.8 fL; WBC 6.64 10^3/uL (4.4-10.8)
[2024-01-22 06:38] LABS: Anion Gap 9.3 mmol/L (3-11); BUN 29 mg/dL (7-18); CO2 26.7 mmol/L (21.0-32.0); Calcium 9.1 mg/dL (8.5-10.1); Chloride 103 mmol/L (98-107); Estimated GFR 86.16 (mL/min/1.73m2); Glucose 103 mg/dL (74-106); Potassium 3.9 mmol/L (3.5-5.1); Sodium 139 mmol/L (136-145)
--- NOTE | 2024-01-22 08:34 | INITIAL_ITS ---
Date of service: 01/22/24 Time of Service: 08:34 Care Management Initial Assmt Initial Assessment Reason for Hospitalization: dizziness Functional Status/Living Situation Patient Presentation: Andre was sitting up in bed when CM met with him. He was very pleasant and engaged readily with CM. Andre will be discharged home this afternoon. He was admitted with syncope and has had a cardiac workup and some medication adjustments with no further symptoms. Town of Residence: [place] Resides with: Spouse ( Cheryl) Significant Other/Family: Out of area (one son in [facility], and other 2 children local) Caregiver/Guardian: Cheryl Employment Status: Retired (worked at [employer] for 30 years) Instrumental Activities of Daily Living (ADLs): Independent Medications Medication Management: No Issues/Barriers identified Advance Directives Advance Directives: Do you have an Advance Directive: Y 03/06/19 10:04 AD On File at [facility]: Y 12/19/16 12:31 Date Asked 09/11/18 07/14/19 08:28 AD Date Reviewed 01/21/24 01/22/24 11:38 COLST On File at [facility] COLST Date Scanned Code Status Resuscitation Status Full Code Insurance Coverage/Financial Issues Insurance: Check I'm Here ACO Member: No Care Team Visit Care Team Role Provider Type Rhoda Montes MD, [place] Primary Care Provider , [facility] Eliu Mojica MD Emergency Provider [facility] STAFF PHYSICIAN Trino Delacruz Admit Provider [facility] STAFF PHYSICIAN Attending Provider Discharge Potential Discharge Needs: PCP F/U Appt Anticipated Barriers to Discharge: None Identified Patient/Family Education Needs: Review discharge instructions, discuss Ask Me Three Transportation: Private vehicle Plan: Anticipate Andre will be discharged home with no new services when medically cleared. He will follow up with his PCP and plan of care and transport with family. CM will follow and continue to support discharge needs. PFSH All Active Problems (Updated 01/22/24 @ 15:55 by Trino Delacruz) Pancreatic mass (Acute) Elevated transaminase level (Acute) Dizziness (Acute) TEMI (acute kidney injury) (Acute) Bradycardia (Acute) Osteoarthritis of left knee (Acute) Weakness (Acute) Recurrent skin cancer (Acute) Pre-diabetes (Acute) Skin lesion of neck (Acute) Weight gain (Acute) Thoracic back sprain (Acute) Lumbar dysfunction (Acute) Disability examination (Acute) Spinal stenosis of lumbar region (Acute) Primary osteoarthritis of right knee (Chronic) Polyp of colon (Chronic 08/28/13) 2013 DR. SANCHEZ; TUBULAR ADENOMA 2016 2 hyperplastic polyps, no adenoma Hyperlipidemia (Chronic 11/10/03) Essential hypertension (Chronic 06/09/13) Depressive disorder (Chronic 10/04/08) Chronic pain syndrome (Chronic 03/27/12) MRI 2013 - central L4-5 disc herniation referralto Maggnitdottir/epidural MULTIPLE INTERVENTIONS in past 06/09/13; NARCOTIC CONTRACT 03/25/17; Controlled substance agreement-renewed Chronic obstructive lung disease (Chronic 06/11/99) Annual physical exam (Acute 12/18/16) Medical History Diabetes mellitus Back pain Fracture of distal end of right fibula (12/05/18) Impaired fasting glucose (11/10/03) 11/13 IFG-112; CRU2I-9.9 Elev transaminase/LDH (05/11/03) 05/14 ELEVATED ALT Degeneration of cervical intervertebral disc (09/11/02) 09/14 ?DISC INJURY-DISCOGRAM; DDD @ L4-5 L5-S1 Chest pain on exertion (07/20/16) Negative ETT, but did develop CP during test 07/27. Further w/u in pregress. Neg MPI 09/29 HTN (hypertension) COPD (chronic obstructive pulmonary disease) Chronic pain syndrome Degeneration of cervical intervertebral disc Surgical History History of surgery two lumbar disc repairs, nuclealplasty KNEE REPAIR (~1981) Repair of inguinal hernia (~1978) LEFT FINGER REPAIR (~2010) Colonoscopy - MAC (01/25/17) Family History Mother , 63 Diabetes Heart disease Hyperlipidemia Stroke Breast cancer Father , 58 Heart disease Hyperlipidemia Alcohol abuse Sister No problems noted. Sister No problems noted. Sister No problems noted. Brother No problems noted. Maternal Grandfather Heart disease Paternal Grandfather Heart disease Maternal Grandmother Heart disease Stroke Paternal Grandmother Heart disease Stroke Son No problems noted. Son No problems noted. Daughter No problems noted. Social History Smoking/Tobacco Use Status: Former Tobacco Use tobacco type: cigarettes Quit Date: 08/12/07 Tobacco: How many years used: 26 Second Hand Exposure: Yes Smoking risk assessment performed?: Yes Alcohol Intake: former Drug use: Occasionally Substance use type: marijuana Details: Pt ingests edibles, denies inhalation of marijuana. 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 Pets and animals: Yes Pets and animals: cat(s) and farm animals Sexually active: No Do you think of yourself as: straight/heterosexual Current gender identity: male What is your relationship status?: How often do you talk on the phone with friends or family?: three or more times per week How often do you get together with friends or relatives?: three or more times per week How often do you attend yazidi or hoahaoism services?: decline to answer Do you belong to any clubs or organized social groups?: yes Panel score (0-1 are the most socially isolated patients): 3 What type of physical activity do you participate in: walking and additional Details: PT and stretching Duration: < 15 minutes/day Frequency: daily Sophy/Presybeterian: No preference Special sophy needs: No Seatbelt use: never Helmet use: Yes Helmet use: sometimes Drive intox or ride w/intox putaway driver: No Do you feel safe at home: Yes Do you feel safe in your relationship?: Yes SDOH(Care Management) Screening Will the Patient Participate in the Screening?: Yes Do you worry about having a steady place to live?: no In the past 12 months, have you had to go without electric, gas, oil or water in your home?: no Have you or anyone in your house had to go without enough food to eat?: no Has lack of transportation kept you from medical appointments or from doing things needed for daily living?: no Has anyone in your support network made you feel unsafe for any reason?: no
[2024-01-22] MEDS: Normal Saline Flush 10 ML SYR IVP (09:40)
[2024-01-22] MEDS: Aspirin E.C. 81 MG TABEC PO (09:41)
[2024-01-22] MEDS: DULoxetine 30 MG CAP 60 MG PO (09:41)
[2024-01-22 12:47] LABS: ALT 65 U/L (16-63); AST 52 U/L (15-37); Albumin 3.3 g/dL (3.4-5.0); Alkaline Phosphatase 77 U/L (46-116); Bilirubin, Direct 0.1 mg/dL (0.0-0.2); Bilirubin, Total 0.5 mg/dL (0.2-1.0); Total Protein 6.7 g/dL (6.4-8.2)
--- NOTE | 2024-01-22 15:40 | DSE_ITS ---
Date of service: 01/22/24 Time of Service: 15:40 DS: Diagnosis Discharge Diagnosis (1) Dizziness: Status: Acute (2) TEMI (acute kidney injury): Status: Acute (3) Bradycardia: Status: Acute Discharge Plan Disposition Patient Disposition: Home Condition: Good Discharge Details Reason For Visit: Hypotension; Bradycardias ; Dizzy Admit Date/Time: 01/21/24 16:01 Admit Provider: Trino Delacruz Attending Provider: Trino Delacruz Primary Care Provider: Batsheva Montesyce [facility] Hospital Course: 58 yo M with history of chronic low back pain on stable opioid therapy and duloxetine, hypertension, and mild COPD who was send from [facility] after presenting with dizziness and found to have bradycardia to around 40 and hypotension. He was sent to the ED and initial blood pressure 50/45, but quickly increased with IV fluids. There was no sign of infection or acute coronary syndrome. He had not taken NTG or sildenafil. TEMI was noted with creatinine up to 2.2, but this normalized overnight. His metoprolol and lisinopril/HCTZ were held. His blood pressure was stable and he was not orthostatic on day of discharge. Echocardiogram was done with official read pending at the time of discharge. He was given lisinopril at a dose of 10mg as his only blood pressure medication at the time of discharge. He should follow up with PCP office to re-titrate. His potassium was cut to daily off of the diuretic, he should have a BMP in a week or two. Cardiac event recorder was also ordered prior to discharge. Home Meds and New Rx's Prescriptions: New polyethylene glycol 3350 17 gram Powder In Packet 17 g PO DAILY PRN PRN (Reason: Constipation) Qty: 0 0RF lisinopril 10 mg tablet 10 mg PO DAILY Qty: 30 0RF Continued aspirin 81 mg tablet,delayed release (DR/EC) 81 mg PO DAILY Ozempic 1 mg/dose (4 mg/3 mL) pen injector 1 mg subcut QWEEK MDD 1 mg Qty: 9 3RF Rx Instructions: Inject 1 mg subcutaneously, once weekly as directed. sildenafil 100 mg tablet 100 mg PO DAILY PRN (Reason: sexual activity) Qty: 30 4RF Rx Instructions: administer 30 minutes to 4 hours before activity NARCOTIC CONTRACT nitroglycerin 0.4 MG tablet, sublingual 0.4 mg Sublingual PRN PRNQty: 25 atorvastatin 80 mg tablet 80 mg PO HS Qty: 90 12RF duloxetine [Cymbalta] 60 mg capsule,delayed release(DR/EC) 60 mg PO DAILY Qty: 90 12RF metaxalone 800 mg tablet 800 mg PO TID Qty: 90 12RF oxycodone-acetaminophen [Endocet] 10-325 mg tablet 1 tab PO QID MDD 4 PRN (Reason: pain) Qty: 92 0RF Changed potassium chloride 20 mEq tablet,ER particles/crystals 40 meq PO DAILY Qty: 360 12RF Discontinued lisinopril-hydrochlorothiazide 20-12.5 mg tablet 1 tab PO DAILY Qty: 90 12RF metoprolol succinate 50 mg tablet extended release 24 hr 50 mg PO DAILY Qty: 90 4RF Hold Instructions: Changed by Provider Discharge Instructions Additional Instructions: Do not take the metoprolol or lisinopril/HCTZ combination pill for now We are giving you a lower dose blood pressure medication, see above. You should get a blood pressure cuff at home and follow your blood pressure and follow up with your primary care office. We sent labs for your liver, you can follow up for your results with your primary care (and on the portal). Activity:: Activity as Tolerated Equipment/Supplies:: No Equipment Needed Diet:: As Tolerated Discharge Orders Discharge Orders: Discharge Order (Routine); Ordered 01/22/24 Ordered By: Trino Delacruz Other Ambulatory Orders: Basic Metabolic Panel (Routine) Timeframe: 1 Week Facility: [facility] - Location: Laboratory Outpatient - [place] Ordered By: Trino Delacruz Cardiac Event Recorder (Routine) Timeframe: 1 Day Facility: [facility] - Location: Respiratory Therapy Ordered By: Ana Lemon DS: Summary Time Spent with Patient providing and/or coordinating discharge services: Greater than 30 minutes Status at Discharge Functional status at discharge: independent ambulation Overall status at discharge: patient is back to baseline Mental Status: mental status grossly normal Speech and Movement: speech and movement normal Mood: congruent mood Affect: normal affect Quality:SDOH Health Related Social Needs: No Data to Display Exam Narrative Exam Narrative: Well-developed, no acute distress RRR, no murmur Unlabored respiratory effort, clear bilaterally Nondistended abdomen, soft nontender Extremities w/o deformity, no cyanosis, no edema. non tender. No rashes or lesions. no focal neurologic deficits Appropriate mood and affect Psych Mental Status: mental status grossly normal Speech and Movement: speech and movement normal Mood: congruent mood Affect: normal affect DS: Data Vitals/I&O Vitals and I&O: Vital Signs Temperature 36.8 C 01/22/24 15:07 Temperature Source Temporal Artery Scan 01/22/24 15:07 Pulse 85 01/22/24 15:07 Pulse Rhythm Regular 01/22/24 12:30 Pulse 74 01/21/24 16:46 Respiratory Rate 20 01/22/24 15:07 Respiratory Effort Normal 01/22/24 12:30 Respiratory Depth Normal 01/22/24 12:30 Respiratory Pattern Normal 01/22/24 12:30 Blood Pressure 163/86 H 01/22/24 15:07 Blood Pressure Mean 84 01/21/24 16:46 Blood Pressure Position Sitting 01/21/24 13:49 Pulse Oximetry 98 01/22/24 15:07 Oxygen Delivery Method Room Air 01/22/24 15:07 Oxygen Flow Rate 0 01/22/24 15:07 Pain Level 4 01/22/24 15:07 Comment pt stated he felt dizzy and light headed, RN notified 01/22/24 04:59 Intake & Output 01/21/24 01/22/24 01/22/24 23:59 11:59 23:59 Intake Total 1490 / 1490 1764.583 / 2335.417 570.834 / 2335.417 Output Total 950 / 950 1525 / 1525 Balance 540 / 540 239.583 / 810.417 570.834 / 810.417 Weight 101.5 kg 101 kg Intake: IV 1010 / 1010 1764.583 / 2035.417 270.834 / 2035.417 Oral 480 / 480 300 / 300 Output: Urine 950 / 950 1525 / 1525 Other: Urine Color Yellow Yellow Urine Appearance Clear Clear Comment urinal pt voids independently in room. Voiding Methods Toilet Toilet Data Completed and Pending Labs on day of discharge: Labs from last 24 hours 01/22/24 01/22/24 01/21/24 11:18 05:45 22:33 WBC 6.64 RBC 4.65 Hgb 14.4 Hct 43.5 MCV 94 MCH 31.0 MCHC 33.1 RDW 13.4 Plt Count 210 MPV 10.3 Immature Gran % 0.3 Neutrophils % 54.2 Lymphocytes % 32.5 Monocytes % 10.4 Eosinophils % 2.0 Basophils % 0.6 Nucleated RBC % 0.0 Absolute Neutrophils 3.60 Absolute Lymphocytes 2.16 Absolute Monocytes 0.69 Absolute Eosinophils 0.13 Absolute Basophils 0.04 Sodium 139 Potassium 3.9 D Chloride 103 Carbon Dioxide 26.7 Anion Gap 9.3 BUN 29 H Creatinine 1.0 D Est GFR (CKD-EPI 2020) 86.16 Glucose 103 Calcium 9.1 Magnesium 2.0 Total Bilirubin 0.5 Conjugated Bilirubin 0.1 AST 52 H ALT 65 H Alkaline Phosphatase 77 Total Protein 6.7 Albumin 3.3 L Urine Color Yellow Urine Clarity Clear Urine pH 5.5 Ur Specific Dille 1.015 Urine Protein Negative Urine Ketones Negative Urine Blood Negative Urine Nitrite Negative Urine Bilirubin Negative Urine Urobilinogen 0.2 Ur Leukocyte Esterase Negative Urine Glucose Negative Hep Bs Antigen Pending Hep Bs Antibody Pending Hep Bs Antibody, Quant Pending Hepatitis C Antibody Pending [facility] All Active Problems (Updated 01/21/24 @ 15:26 by Eliu Mojica MD) Dizziness (Acute) TEMI (acute kidney injury) (Acute) Bradycardia (Acute) Osteoarthritis of left knee (Acute) Weakness (Acute) Recurrent skin cancer (Acute) Pre-diabetes (Acute) Skin lesion of neck (Acute) Weight gain (Acute) Thoracic back sprain (Acute) Lumbar dysfunction (Acute) Disability examination (Acute) Spinal stenosis of lumbar region (Acute) Primary osteoarthritis of right knee (Chronic) Polyp of colon (Chronic 08/28/13) 2013 DR. SANCHEZ; TUBULAR ADENOMA 2016 2 hyperplastic polyps, no adenoma Hyperlipidemia (Chronic 11/10/03) Essential hypertension (Chronic 06/09/13) Depressive disorder (Chronic 10/04/08) Chronic pain syndrome (Chronic 03/27/12) MRI 2014 - central L4-5 disc herniation referralto Maggnitdottir/epidural MULTIPLE INTERVENTIONS in past 06/09/13; NARCOTIC CONTRACT 03/25/17; Controlled substance agreement-renewed Chronic obstructive lung disease (Chronic 06/11/99) Annual physical exam (Acute 12/18/16) Medical History Diabetes mellitus Back pain Fracture of distal end of right fibula (12/05/18) Impaired fasting glucose (11/10/03) 11/13 IFG-112; GWF6O-3.9 Elev transaminase/LDH (05/11/03) 05/14 ELEVATED ALT Degeneration of cervical intervertebral disc (09/11/02) 09/14 ?DISC INJURY-DISCOGRAM; DDD @ L4-5 L5-S1 Chest pain on exertion (07/20/16) Negative ETT, but did develop CP during test 07/27. Further w/u in pregress. Neg MPI 09/29 HTN (hypertension) COPD (chronic obstructive pulmonary disease) Chronic pain syndrome Degeneration of cervical intervertebral disc Surgical History History of surgery two lumbar disc repairs, nuclealplasty KNEE REPAIR (~1981) Repair of inguinal hernia (~1978) LEFT FINGER REPAIR (~2010) Colonoscopy - MAC (01/25/17) Family History Mother , 63 Diabetes Heart disease Hyperlipidemia Stroke Breast cancer Father , 58 Heart disease Hyperlipidemia Alcohol abuse Sister No problems noted. Sister No problems noted. Sister No problems noted. Brother No problems noted. Maternal Grandfather Heart disease Paternal Grandfather Heart disease Maternal Grandmother Heart disease Stroke Paternal Grandmother Heart disease Stroke Son No problems noted. Son No problems noted. Daughter No problems noted. Social History Smoking/Tobacco Use Status: Former Tobacco Use tobacco type: cigarettes Quit Date: 08/12/07 Tobacco: How many years used: 26 Second Hand Exposure: Yes Smoking risk assessment performed?: Yes Alcohol Intake: former Drug use: Occasionally Substance use type: marijuana Details: Pt ingests edibles, denies inhalation of marijuana. 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 Pets and animals: Yes Pets and animals: cat(s) and farm animals Sexually active: No Do you think of yourself as: straight/heterosexual Current gender identity: male What is your relationship status?: How often do you talk on the phone with friends or family?: three or more times per week How often do you get together with friends or relatives?: three or more times per week How often do you attend congregational or episcopalian services?: decline to answer Do you belong to any clubs or organized social groups?: yes Panel score (0-1 are the most socially isolated patients): 3 What type of physical activity do you participate in: walking and additional Details: PT and stretching Duration: < 15 minutes/day Frequency: daily Sophy/Confucianism: No preference Special sophy needs: No Seatbelt use: never Helmet use: Yes Helmet use: sometimes Drive intox or ride w/intox mobile lounge driver: No Do you feel safe at home: Yes Do you feel safe in your relationship?: Yes Time Spent with Patient Time Spent with Patient: <45 minutes Time was spent: preparing to see the patient(eg.review tests), obtaining and/or reviewing separately otained hiistory, ordering medications,tests, procedures, referring, communicating with other health healthcare recruiter, indepentently interpreting results, counseling the patient and care coordination
[2024-01-23 09:20] LABS: Hepatitis B Surface Ag Negative (Negative)
[2024-01-23 09:22] LABS: HBs Antibody, Quant <3.1 mIU/mL (See Note); Hepatitis B Surface Ab Negative (See Note)
[2024-01-23 09:58] LABS: Hepatitis C Ab w Rflx HCV PCR Negative (Negative)
== END 2024-01-22 17:13 | disposition home or self-care (01) ==
LOC: ER 16:16 → MS 01-22 11:38
PROVIDERS: Nurse Practitioner Family; Admitting Provider Family Medicine; Emergency Provider Emergency Medicine; PCP Family Medicine; Visit Provider Family Medicine
DX: R42 Dizziness and giddiness (principal); N17.9 Acute kidney failure, unspecified; R00.1 Bradycardia, unspecified; R74.01 Elevation of levels of liver transaminase levels; I10 Essential (primary) hypertension; Z79.85 Long-term (current) use of injectable non-insulin antidiabetic drugs; Z79.82 Long term (current) use of aspirin; M54.9 Dorsalgia, unspecified; G89.29 Other chronic pain; J44.9 Chronic obstructive pulmonary disease, unspecified; R53.1 Weakness; M48.061 Spinal stenosis, lumbar region without neurogenic claudication; E78.5 Hyperlipidemia, unspecified; F32.A Depression, unspecified; E11.9 Type 2 diabetes mellitus without complications; Z79.891 Long term (current) use of opiate analgesic; E66.9 Obesity, unspecified; M54.6 Pain in thoracic spine; I45.10 Unspecified right bundle-branch block; R93.2 Abnormal findings on diagnostic imaging of liver and biliary tract
CPT/HCPCS: 00123; 36415; 71250; 80048; 80053; 80076; 86706; 86803; 87340; 93005; 96360; 96361; 96372; 99285; J1650; 70450; 74176; 81003; 83735; 83880; 84443; 84484; 85025; 93010; 93306; 99222; 99238; G0378

== ENCOUNTER 2024-01-27 08:23 | Outpatient (CLI) | payer OTHER, SELFPAY ==
[2024-01-27 12:20] LABS: HCT 43.9 % (40.0-50.0); HGB 14.4 g/dL (13.5-17.5); MCH 30.4 pg (27.0-33.0); MCHC 32.8 % (32.0-36.0); MCV 93 fL (80-95); MPV 10.6 fL (8.0-11.0); Platelet Count 259 10^3/uL (130-400); RBC 4.73 10^6/uL (4.36-5.78); RDW 13.3 % (11.8-14.1); RDW-SD 45.3 fL; WBC 8.52 10^3/uL (4.4-10.8)
[2024-01-27 12:47] LABS: ALT 68 U/L (16-63); AST 29 U/L (15-37); Albumin 3.6 g/dL (3.4-5.0); Alkaline Phosphatase 76 U/L (46-116); Bilirubin, Direct 0.1 mg/dL (0.0-0.2); Bilirubin, Total 0.4 mg/dL (0.2-1.0)
[2024-01-27 12:48] LABS: ALT 67 U/L (16-63); AST 27 U/L (15-37); Albumin 3.6 g/dL (3.4-5.0); Alkaline Phosphatase 75 U/L (46-116); BUN 24 mg/dL (7-18); Bilirubin, Total 0.4 mg/dL (0.2-1.0); CREATININE 0.9 mg/dL (0.70-1.30); Calcium 8.9 mg/dL (8.5-10.1); Calculated LDL 116 mg/dL (<100); Chloride 105 mmol/L (98-107); Cholesterol 179 mg/dL (<200); Estimated GFR 97.78 (mL/min/1.73m2); Glucose 91 mg/dL (74-106); HDL Cholesterol 42 mg/dL (40-60); Sodium 139 mmol/L (136-145); TSH (W/Ref FT4) 0.49 uIU/mL (0.36-3.74); Total Protein 7.1 g/dL (6.4-8.2); Triglyceride 107 mg/dL (<150)
== END 2024-01-27 08:24 | disposition home or self-care (01) ==
LOC: LOS 08:23
PROVIDERS: Family Medicine; PCP Family Medicine; Referring Provider Family Medicine; Visit Provider Family Medicine
DX: I10 Essential (primary) hypertension (principal); R00.1 Bradycardia, unspecified; E03.9 Hypothyroidism, unspecified; R74.01 Elevation of levels of liver transaminase levels
CPT/HCPCS: 36415; 80053; 80061; 80076; 85027; 84443

== ENCOUNTER → 2024-02-06 00:21 | Outpatient (CLI) | payer OTHER, SELFPAY ==
--- NOTE | 2024-02-06 06:30 | DI.MRI_ITS ---
Exam(s) MR ABDOMEN WO/W EXAM: MR ABDOMEN WO/W CLINICAL HISTORY: evaluate cystic PANCREATIC mass with infusion,k86.89 TECHNIQUE: Multiplanar multisequence MRI of the Abdomen was performed. CONTRAST MATERIAL: IV Contrast: 20 mL of Dotarem contrast administered. COMPARISON: CT CT CHEST/ABD/PEL WO from 01/21/2024 FINDINGS: Liver: There are several hepatic simple cysts present. The largest is in the right lobe of the liver and measures 1.8 x 1.3 cm. (Series 3001, image 9). The cysts show no abnormal enhancement followin g contrast administration. No follow-up is recommended. No suspicious hepatic masses are seen. Pancreas: There is a 1.0 x 0.9 cm cyst in the tail of the pancreas corresponding to the finding on th e CT scan (series 3001, image 22). There is also a collection of small cysts in the uncinate process the largest measure 4 mm. There is no abnormal enhancement following contrast administration. No e vidence of a solid pancreatic mass. Gallbladder and Bile Ducts: No evidence of cholelithiasis. No biliary ductal dilatation. Adrenals: Unremarkable. Kidneys: The visualized kidneys are unremarkable. Portions of the inferior poles are not completely imaged. Spleen: Unremarkable. Bowel: There is no bowel wall thickening or obstruction evident. Aorta: Unremarkable. Soft Tissues: Unremarkable. Bone: Unremarkable. Lymph Nodes: Unremarkable. IMPRESSION: 1. 1 x 0.9 cm nonenhancing simple cyst in the tail of the pancreas corresponding to the CT finding. A follow-up examination in 1 year is recommended to document stability. 2. Simple hepatic cysts. No follow-up is recommended. 3. No evidence of a solid or enhancing pancreatic mass. DATA REPOSITORY:
[2024-02-06] MEDS: Normal Saline - Diluent 50 ML VIAL 25 ML IJ (08:18)
[2024-02-06] MEDS: Gadoterate meglumine 20 ML VIAL IVP (08:20)
== END ==
PROVIDERS: PCP Family Medicine; Visit Provider Family Medicine
DX: K86.89 Other specified diseases of pancreas (principal)
CPT/HCPCS: 74183

== ENCOUNTER 2024-02-27 06:55 | Outpatient (CLI) | payer OTHER, SELFPAY ==
--- NOTE | 2024-02-27 09:12 | W.CARDEVENT ---
Date of service: 02/27/24 Time of Service: 09:13 Cardiac Event Recorder Referring Provider:: Rhoda Montes Indications:: Bradycardia and dizziness Cardiac Event Note: This is a cardiac event monitor. Patient was monitored for 29 days and 1 hour. Rhythm throughout was sinus. Average heart rate overall was 99. There was no bradycardia, no high-grade AV block, no pauses greater than 3 seconds. There was no atrial fibrillation, no SVT, no significant ventricular dysrhythmias
== END 2024-02-27 06:56 | disposition home or self-care (01) ==
LOC: CARDOPNVT 06:55
PROVIDERS: PCP Family Medicine; Visit Provider Internal Medicine Cardiovascular Disease
DX: R42 Dizziness and giddiness (principal); R00.1 Bradycardia, unspecified
CPT/HCPCS: 93270

== ENCOUNTER → 2024-03-16 01:50 | Outpatient (CLI) | payer OTHER, SELFPAY ==
--- NOTE | 2024-03-16 06:30 | ETT_ITS ---
APPROVED REPORT Exam: Exercise Treadmill Patient Location: Out-Patient Room/Bed: Stress Nurse: Ginette Trejo RN and Jannie Chong RN Ordering Provider:RUTHANN TORREZ, Contact Number: [phone] BMI: 32.38 Baseline Rhythm: Sinus Rhythm; RBBB. Indications: Shortness of Breath. Medical History Medical History: COPD; Hyperlipidemia; Hypertension; Prediabetes; Chronic LBP. Cardiac Medications: Aspirin; Duloxetine; Lisinopril; Nitroglycerin; Oxycodone/Acetaminophen (Percoce t); Ozempic. Allergies: Ibuprofen. Cardiac Risk Factors: Family Hx; Hyperlipidemia; Hypertension; Prediabetes; COPD; Former Smoker. Previous Cardiac Procedures: None. Pretest Chest Pain Characteristics: None. Exercise History: Sedentary. Physical Disabilities: None. Lung Sounds: Clear bilaterally throughout, anterior and posterior. Heart Sounds: S1 and S2 auscultated. Stress Test Details Test: Exercise stress testing was performed using a Terrance protocol. Rest Stress HR Resting HR Supine: 74 bpm Max Heart Rate (APMHR): 160 bpm Resting HR Standin bpm Target HR (85% APMHR): 136 bpm Max HR Achieved: 132 bpm % of APMHR: 83 Recovery HR: 90 bpm HR response to stress: Normal HR response to stress. BP Resting BP Supine: 142/82 mmHg Resting BP Standin/60 mmHg Max BP: 182/88 mmHg Recovery BP: 142/82 mmHg BP response to stress: Normal blood pressure response to stress. Comment: RN unable to obtain pt.'s BP's during exercise; too difficult to auscultate; pt.'s BP's note d to fluctuate significantly throughout the stress test and were accompanied by some dizziness when m oving from lying or sitting to standing. ECG Resting ECG: Sinus Rhythm; Right Bundle Branch Block. Ectopy: None. Stress ECG: Sinus Tachycardia; Right Bundle Branch Block. ST Change: Nondiagnostic low heart rate. Arrhythmia: None. Recovery ECG: Sinus Rhythm; Right Bundle Branch Block. Recovery ST Change: Nondiagnostic low heart rate. Recovery Arrhythmia: None. Clinical Reason for Termination: Dyspnea; Fatigue; Dizziness. Stress Symptoms: Dyspnea; General Fatigue; Dizziness. Exercise duration: 06 min32 sec Highest Stage Reached: Stage 3: 3.4 mph at 14% grade. Exercise capacity: 7.89 METs Angina Score: None Dominguez Treadmill Score: 6 Rate Pressure Product: 55049 Stress ECG Conclusion 1. Resting electrocardiogram showed right bundle branch block 2. Patient exercised on the Terrance protocol completed to workload of 7.89 METS 3. Normal heart rate and blood pressure response to exercise. The patient achieved 83% predicted hea rt rate for age 4. At that workload, there was no electrocardiographic evidence of myocardial ischemia 5. There were no dysrhythmias Dominguez Treadmill Score is 6 which is Low risk. Stress Test Summary STAGE Time (mins) Speed (mph) Grade (%) HR BP SpO2 SYMPTOMS METS Supine 74 142/82 95 Standing 92 98/60 96 Pt. complaining of mild dizziness upon moving from supine to standing. 1 3 1.7 10 118 91 4.5 2 6 2.5 12 129 91 Pt. complaining of mild shortness of breath. 7 3 9 3.4 14 130 90 Pt. complaining of moderate shortness of breath, mild dizziness, and gener alized fatigue. 10 1 min recovery 101 182/88 92 Pt. complaining of moderate shortness of breath, mild dizzines s, and generalized fatigue. 3 min recovery 96 160/82 95 Pt. complaining of mild shortness of breath, but states that th e dizziness and fatigue has resolved. 6 min recovery 90 142/82 97 Pt. states that all symptoms have resolved and are back to base line. RN unable to obtain pt.'s BP's during exercise; too difficult to auscultate; pt.'s BP's noted to fluc tuate significantly throughout the stress test and were accompanied by some dizziness when moving fro m lying or sitting to standing. Nursing staff encouraged the pt. to check and record his BP's at home , as well as any associated symptoms, and to report these to his PCP. Pt. verbalized understanding an d stated that he would do so. Pt. stated that all symptoms had resolved and returned to baseline prio r to leaving the Stress Lab. Pt. was conversing pleasantly with nursing staff upon leaving the Stress Lab. Pt. left ambulatory in no apparent distress.
== END ==
PROVIDERS: PCP Family Medicine; Visit Provider Family Medicine
DX: R06.02 Shortness of breath (principal)
CPT/HCPCS: 93017

== ENCOUNTER 2024-03-26 10:17 | Outpatient (CLI) | payer OTHER, SELFPAY ==
--- NOTE | 2024-03-26 09:45 | DI.CT_ITS ---
Exam(s) CT BRAIN NECK CTA EXAM: CT BRAIN NECK CTA CLINICAL HISTORY: I65.23, R42,dizziness and carotid calcification (dental xrays). TECHNIQUE: Imaging Protocol: Axial CT angiography was performed with multi-slice acquisition and mu lti-planar and/or 3D reconstructions. CONTRAST MATERIAL: Intravenous: Omnipaque 350 contrast volume:70 mL COMPARISON: CT CT HEAD CERVICAL SPINE WO from 05/29/[address] HEAD WO from 01/21/2024 FINDINGS: CT Head W/O and W: Ventricles and Extra axial spaces: Normal in size and morphology for the patient's age. Hemorrhage: None. Cerebral parenchyma: There is again seen an old lacunar infarct in the left basal ganglia. Midline shift: None. Brainstem/Cerebellum: Normal. Calvarium: Normal. Visualized Paranasal sinuses/Mastoids: Clear. Soft Tissues: Unremarkable. Enhancement: Unremarkable. CTA Neck W: Common Carotid: Right: No dissection, occlusion or significant stenosis. Left: No dissection, occlusion or significant stenosis. External Carotid: Right: No occlusion or significant stenosis. Left: No occlusion or significant stenosis. Internal Carotid: Right: No dissection, occlusion or significant stenosis. There is atherosclerosis at the origin of t he right internal carotid artery without significant stenosis. Left: No dissection, occlusion or significant stenosis. There is atherosclerosis in the proximal lef t internal carotid artery without significant stenosis. Vertebral Artery: Right: No dissection, occlusion or significant stenosis. Left: No dissection, occlusion or significant stenosis. The left vertebral artery is small compared to the right. Lung Apices: No acute pulmonary infiltrates. No evidence of an apical pneumothorax. Bones: Within normal limits for the patient's age. There is mild reversal of the normal cervical lord osis. Soft Tissues: Normal. Thyroid gland: Unremarkable. CTA Brain W: Internal Carotid Arteries: Atherosclerotic calcification is present in the cavernous portions of the internal carotid arteries bilaterally. No aneurysm, occlusion or significant stenosis. Anterior Cerebral Arteries: Right: No aneurysm, occlusion or significant stenosis. Left: No aneurysm, occlusion or significant stenosis. Middle Cerebral Arteries: Right: No aneurysm, occlusion or significant stenosis. Left: No aneurysm, occlusion or significant stenosis. Posterior Cerebral Arteries: Right: No aneurysm, occlusion or significant stenosis. Left: No aneurysm, occlusion or significant stenosis. Vertebral Arteries: Right: No aneurysm, occlusion or significant stenosis. Left: No aneurysm, occlusion or significant stenosis. Basilar Artery: No aneurysm, occlusion or significant stenosis. IMPRESSION: 1. No large vessel occlusion or significant stenosis on the CT angiography of the head. 2. No acute intracranial process. 3. No occlusion or significant stenosis on the CT angiography of the neck. 4. Atherosclerotic calcification is seen in the proximal internal carotid arteries bilaterally. RADIATION DOSE DELIVERED: Total DLP DATA REPOSITORY: All CT scans at this facility are submitted to the National Radiology Data Registry (NRDR) Dose Index Registry (DIR) with the [employer] (ACR). RADIATION OPTIMIZATION: All CT scans at this facility use at least one of these dose optimization te chniques: automated exposure control; mA and/or kV adjustment per patient size (includes targeted exa ms where dose is matched to clinical indication); or iterative reconstruction.
[2024-03-26 11:01] LABS: CREATININE 0.8 mg/dL (0.70-1.30); Estimated GFR 101.32 (mL/min/1.73m2)
[2024-03-26] MEDS: Normal Saline - Diluent 50 ML VIAL IJ (11:20)
[2024-03-26] MEDS: Omnipaque 350 MG/ML 500 ML BTL-Imaging package 70 ML IJ (11:21)
== END 2024-03-26 10:37 ==
LOC: DI 10:17
PROVIDERS: PCP Family Medicine; Visit Provider Family Medicine
DX: I65.23 Occlusion and stenosis of bilateral carotid arteries (principal); R42 Dizziness and giddiness
CPT/HCPCS: 36415; 70496; 70498; 82565

== ENCOUNTER 2024-03-27 08:51 | Outpatient (REF) | payer OTHER, SELFPAY ==
--- NOTE | 2024-03-27 08:52 | SKI_PTH ---
PATIENT: Andre Saunders LOC: [facility] U#:[id number] AGE/SX: 58/M ROOM: RE03/27/[address]: VICKY Ceballos : 1965 BED: DIS: 03/27/2024 SPEC #: [id number] RECD: 03/27/24 12:46 STATUS: SORAIDA REEverett #: [id number] WADE: 03/27/24 08:[address]: Nataly Barton DEPT: Surgical Specimen RECD BY: Quin Aguilar ENTERED: 03/27/24 12:46 SP TYPE: EVAN SANTAMARIA DR: Rhoda Montes MD, DC Tissues: 1 - SKIN BIOPSY(SHAVE/PUNCH) Procedures: SKIN LEVEL 4 Comments: [id number]
== END 2024-03-27 08:52 | disposition home or self-care (01) ==
LOC: LBN 08:51
PROVIDERS: PCP Family Medicine; Referring Provider Physical Therapy Assistant; Visit Provider Physical Therapy Assistant
DX: C44.319 Basal cell carcinoma of skin of other parts of face (principal)
CPT/HCPCS: 88305

== ENCOUNTER 2024-07-27 01:18 | Outpatient (CLI) | payer OTHER, SELFPAY ==
--- NOTE | 2024-07-27 07:45 | DI.MRI_ITS ---
Exam(s) MR ABDOMEN WO/W EXAM: MR ABDOMEN WO/W CLINICAL HISTORY: pancreatic mass K86.89 DISEASE OF PANCREAS TECHNIQUE: Multiplanar multisequence MRI of the Abdomen was performed. CONTRAST MATERIAL: IV Contrast: 18 mL of Dotarem contrast administered. COMPARISON: MR MR ABDOMEN WO/W from 02/06/2024 FINDINGS: Liver: There again seen several simple hepatic cysts. No suspicious hepatic masses are present. Pancreas: There are stable small collection of cysts in the head and uncinate process. There is agai n seen a cyst in the tail of the pancreas. It is not as well visualized on the current examination c ompared to the prior, but no significant increase in size is noted. No new pancreatic masses are see n. Pancreatic duct is within normal limits. Gallbladder and Bile Ducts: No evidence of cholelithiasis. No significant biliary ductal dilatation. Adrenals: Unremarkable. Kidneys: Unremarkable. No evidence of hydronephrosis or solid renal mass. Spleen: Unremarkable. Bowel: No evidence of bowel obstruction or bowel wall thickening. Aorta: Unremarkable. Soft Tissues: Unremarkable. Bone: Within normal limits for the patient's age. Lymph Nodes: Unremarkable. IMPRESSION: 1. Stable pancreatic cyst. In this patient, follow-up should be every year for 5 years. (Guille et al, Management of Incidental Pancreatic Cysts: A White Paper of the ACR Incidental Findings Committe e, 2017). DATA REPOSITORY:
[2024-07-27] MEDS: Gadoterate meglumine 20 ML VIAL 18 ML IVP (08:36)
== END 2024-07-27 01:38 ==
LOC: DI 01:19
PROVIDERS: PCP Family Medicine; Visit Provider Family Medicine
DX: K86.89 Other specified diseases of pancreas (principal)
CPT/HCPCS: 74183

== ENCOUNTER 2024-08-03 11:07 | Outpatient (CLI) | payer OTHER, SELFPAY ==
[2024-08-03 12:45] LABS: Hemoglobin A1C 5.7 % (<5.7)
[2024-08-03 13:10] LABS: ALT 70 U/L (16-63); AST 33 U/L (15-37); Albumin 3.6 g/dL (3.4-5.0); Alkaline Phosphatase 101 U/L (46-116); BUN 22 mg/dL (7-18); Bilirubin, Total 0.24 mg/dL (0.2-1.0); CREATININE 0.8 mg/dL (0.70-1.30); Calcium 8.9 mg/dL (8.5-10.1); Calculated LDL 150 mg/dL (<100); Chloride 101 mmol/L (98-107); Cholesterol 227 mg/dL (<200); Estimated GFR 100.69 (mL/min/1.73m2); Glucose 129 mg/dL (74-106); HDL Cholesterol 40 mg/dL (40-60); Potassium 4.4 mmol/L (3.5-5.1); Sodium 138 mmol/L (136-145); TSH (W/Ref FT4) 1.57 uIU/mL (0.36-3.74); Total Protein 7.2 g/dL (6.4-8.2); Triglyceride 187 mg/dL (<150)
[2024-08-03 22:28] LABS: PSA, Screening 0.6 ng/mL (<=4.5)
== END 2024-08-03 11:08 | disposition home or self-care (01) ==
LOC: LOS 11:08
PROVIDERS: PCP Family Medicine; Referring Provider Family Medicine; Visit Provider Family Medicine
DX: I10 Essential (primary) hypertension (principal); Z00.00 Encounter for general adult medical examination without abnormal findings; E11.9 Type 2 diabetes mellitus without complications; E03.9 Hypothyroidism, unspecified
CPT/HCPCS: 36415; 80053; 80061; 84153; 83036; 84443

== ENCOUNTER 2024-10-11 13:57 | Emergency (ER) | payer OTHER, SELFPAY ==
[2024-10-11 14:01] VITALS: BP 144/84; PULSE 83; RESP 18; TEMP 36.2; O2SAT 97
[2024-10-11 14:04] VITALS: BP 144/84; PULSE 83; RESP 18; TEMP 36.2; O2SAT 97
--- NOTE | 2024-10-11 14:06 | ED.GENADUL_ITS ---
Discharge Plan Disposition Patient Disposition: Home Discharge Details Clinical Impression: Cellulitis of right hand Primary Care Provider: Rhoda Montes ED Provider: Trino Henao Home Meds and New Rx's Prescriptions: New cephalexin 500 mg capsule 500 mg PO QID 7 Days Qty: 28 0RF Continued aspirin 81 mg tablet,delayed release (DR/EC) 81 mg PO DAILY lisinopril 20 mg tablet 20 mg PO DAILY Qty: 90 4RF tamsulosin 0.4 mg capsule 0.8 mg PO DAILY Qty: 180 4RF NARCOTIC CONTRACT nitroglycerin 0.4 MG tablet, sublingual 0.4 mg Sublingual PRN PRNQty: 25 atorvastatin 80 mg tablet 80 mg PO HS Qty: 90 12RF metaxalone 800 mg tablet 800 mg PO TID Qty: 90 12RF potassium chloride 20 mEq tablet,ER particles/crystals 40 meq PO DAILY Qty: 360 12RF Ozempic 1 mg/dose (4 mg/3 mL) pen injector 1 mg subcut QWEEK MDD 1 mg Qty: 9 3RF Rx Instructions: Inject 1 mg subcutaneously, once weekly as directed. Zepbound 7.5 mg/0.5 mL pen injector 7.5 mg subcut QWEEK Qty: 8 4RF oxycodone-acetaminophen [Endocet] 10-325 mg tablet 1 tab PO QID MDD 4 PRN (Reason: pain) Qty: 92 0RF Discharge Instructions Instructions: Cellulitis (Skin Infection), Adult ED Additional Instructions: You are seen in the emergency department for your hand swelling. You have a skin infection for which you are receiving antibiotics that you should take as directed. As we discussed and very low threshold return to the emergency department if your symptoms worsen. Specifically if you develop worsening swelling streaking signs of infection fevers nausea or vomiting or cannot take your antibiotics for any reason please return to the emergency department. Otherwise please follow-up next week with your primary care provider for reassessment. The prescription for antibiotics has been called into the pharmacy at the hospital. Please take these pills overnight 1 at 10 PM and another at 6 AM when you wake up. HPI General Date/Time Provider Initiated Documentation: 10/11/24 14:06 . HPI Narrative: MDM This is an overall very well-appearing normothermic and not tachycardic [id number] male with right hand cellulitis for which he will receive antibiotics and empiric trial of discharge with expectant outpatient management. No pain or proportion to suggest necrotizing soft tissue infection. Patient does have some pain with passive range of motion of his right little finger however he has no percussive tenderness nor any fusiform swelling and arm limited bedside ultrasound no signs of any fluid along his flexor tendon sheath so in the absence of Kanavel's Signs I am not concern for flexor tenosynovitis. No systemic symptoms to suggest osteomyelitis. No fluctuance to suggest abscess. No lacerations that would benefit from primary closure. Patient will be discharged on cephalexin. I gave him several tablets and called the remainder of the prescription into the [facility] pharmacy. Given no history of gout and no history of ethanol abuse my suspicion for gouty arthritis is low. No significant pain with passive range of motion so not concern for septic arthritis. We discussed that he should have a low threshold to return to the emergency department if his symptoms worsened or did not improve. X-ray negative for any acute fractures or dislocations. Radiology did note a tiny linear soft tissue foreign body at the volar aspect of the head of the second metacarpal bone. Patient has no trauma in this area and this is likely secondary to a remote injury. HPI This is a right-hand dominant 59-year-old male with history of back pain on outpatient oxycodone right emergency department via private vehicle in setting of right hand pain and swelling. 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 He reports that he started to develop pain in his right hand yesterday afternoon. He also noticed some swelling. He is not worsening symptoms and was concerned that the swelling was spreading. He denies history of diabetes fevers and gout. He denies routine tobacco, ethanol, and illicits. Exam General: Well-appearing in no acute distress speaking in complete sentences. Head: Normocephalic, atraumatic. Eye: Extraocular eye movements intact. No conjunctival injection. No scleral icterus. Ear, nose, mouth, throat: Grossly normal inspection. Normal voice, handling secretions normally. Neck: Trachea midline. Cardiovascular: Well-perfused distal extremities. Respiratory: Nonlabored respiration. Gastrointestinal: Nondistended abdomen. Musculoskeletal: There is marked swelling along the dorsal aspect of the right hand at the palm from the MCP joint of the long finger through to the ulnar aspect of the proximal little finger. There is mild warmth and erythema. Right little finger held in flexion. Has pain with passive flexion of the right little finger. He has no fusiform swelling. He has no progression tenderness. Skin: Normal for age and race, grossly normal temperature and turgor. No acute rash. Neurologic: Alert and appropriate, no apparent acute deficits. Psychiatric: Mood and manner are appropriate. Grooming and personal hygiene are appropriate. Related Data Home Medications ?Medication ?Instructions ?Recorded ?Confirmed Narcotic Contract 06/23/13 08/06/24 nitroglycerin 0.4 mg sublingual 0.4 mg sublingual PRN PRN #25 12/18/16 10/11/24 tablet tab-caps aspirin 81 mg tablet,delayed 81 mg PO DAILY 07/07/18 10/11/24 release lisinopril 20 mg tablet 20 mg PO DAILY #90 tabs 03/03/24 10/11/24 atorvastatin 80 mg tablet 80 mg PO HS #90 tab-caps 05/13/24 10/11/24 metaxalone 800 mg tablet 800 mg PO TID #90 tab-caps 05/13/24 10/11/24 potassium chloride 20 mEq 40 meq (2 x 20 mEq) PO DAILY #360 06/08/24 10/11/24 tablet,extended release(part/cryst) tab-caps Ozempic 1 mg/dose (4 mg/3 mL) 1 mg (0.75 mL) subcut QWEEK #9 mL 08/04/24 10/11/24 subcutaneous pen injector (semaglutide) tamsulosin 0.4 mg capsule 0.8 mg (2 x 0.4 mg) PO DAILY #180 08/06/24 10/11/24 caps tirzepatide (weight loss) 7.5 7.5 mg (0.5 mL) subcut QWEEK #8 mL 09/01/24 10/11/24 mg/0.5 mL subcutaneous pen injector (Zepbound) oxycodone-acetaminophen 10 mg-325 1 tab PO QID PRN pain #92 tabs 09/15/24 10/11/24 mg tablet (Endocet) cephalexin 500 mg capsule 500 mg PO QID 7 days #28 caps 10/11/24 Previous Rx's ?Medication ?Instructions ?Recorded lisinopril 20 mg tablet 20 mg PO DAILY #90 tabs 03/03/24 atorvastatin 80 mg tablet 80 mg PO HS #90 tab-caps 05/13/24 metaxalone 800 mg tablet 800 mg PO TID #90 tab-caps 05/13/24 potassium chloride 20 mEq 40 meq (2 x 20 mEq) PO DAILY #360 06/08/24 tablet,extended release(part/cryst) tab-caps Ozempic 1 mg/dose (4 mg/3 mL) 1 mg (0.75 mL) subcut QWEEK #9 mL 08/04/24 subcutaneous pen injector (semaglutide) tamsulosin 0.4 mg capsule 0.8 mg (2 x 0.4 mg) PO DAILY #180 08/06/24 caps tirzepatide (weight loss) 7.5 7.5 mg (0.5 mL) subcut QWEEK #8 mL 09/01/24 mg/0.5 mL subcutaneous pen injector (Zepbound) oxycodone-acetaminophen 10 mg-325 1 tab PO QID PRN pain #92 tabs 09/15/24 mg tablet (Endocet) cephalexin 500 mg capsule 500 mg PO QID 7 days #28 caps 10/11/24 Allergies Allergy/AdvReac Type Severity Reaction Status Date / Time ibuprofen AdvReac Hematuria Verified 10/11/24 14:03 General Stated Complaint: Cellulitis YAMILE: 3 Course Vital Signs Vital signs: Vital Signs Temperature 36.2 C L 10/11/24 14:01 Pulse 83 10/11/24 14:01 Respiratory Rate 18 10/11/24 14:01 Blood Pressure 144/84 H 10/11/24 14:01 Pulse Oximetry 97 10/11/24 14:01 Temperature 36.2 C L 10/11/24 14:04 Pulse 83 10/11/24 14:04 Respiratory Rate 18 10/11/24 14:04 Blood Pressure 144/84 H 10/11/24 14:04 Pulse Oximetry 97 10/11/24 14:04 Procedure Abscess Drainage Provider that performed the procedure: Trino Henao Medical Decision Making Quality:SDOH Health Related Social Needs: 2 Health related social needs housing instability, house d, with risk of homelessness (Z59.811) PFSH All Active Problems (Updated 10/11/24 @ 15:35 by Trino Henao MD) Cellulitis of right hand (Acute) Unknown skin lesion (Acute) Calcification of both carotid arteries (Acute) Pancreatic mass (Acute) Elevated transaminase level (Acute) Osteoarthritis of left knee (Acute) Weakness (Acute) Recurrent skin cancer (Acute) Pre-diabetes (Acute) Skin lesion of neck (Acute) Weight gain (Acute) Thoracic back sprain (Acute) Lumbar dysfunction (Acute) Disability examination (Acute) Spinal stenosis of lumbar region (Acute) Primary osteoarthritis of right knee (Chronic) Polyp of colon (Chronic 08/28/13) 2013 DR. SANCHEZ; TUBULAR ADENOMA 2016 2 hyperplastic polyps, no adenoma Hyperlipidemia (Chronic 11/10/03) Essential hypertension (Chronic 06/09/13) Depressive disorder (Chronic 10/04/08) Chronic pain syndrome (Chronic 03/27/12) MRI 2013 - central L4-5 disc herniation referralto Maggnitdottir/epidural MULTIPLE INTERVENTIONS in past 06/09/13; NARCOTIC CONTRACT 03/25/17; Controlled substance agreement-renewed Chronic obstructive lung disease (Chronic 06/11/99) Annual physical exam (Acute 12/18/16) Medical History Diabetes mellitus Back pain Fracture of distal end of right fibula (12/05/18) Impaired fasting glucose (11/10/03) 11/13 [id number]; [id number] Elev transaminase/LDH (05/11/03) 05/14 ELEVATED ALT Degeneration of cervical intervertebral disc (09/11/02) 09/14 ?DISC INJURY-DISCOGRAM; DDD @ L4-5 L5-S1 Chest pain on exertion (07/20/16) Negative ETT, but did develop CP during test 07/27. Further w/u in pregress. Neg MPI 09/29 HTN (hypertension) COPD (chronic obstructive pulmonary disease) Chronic pain syndrome Degeneration of cervical intervertebral disc Surgical History History of surgery two lumbar disc repairs, nuclealplasty KNEE REPAIR (~1981) Repair of inguinal hernia (~1978) LEFT FINGER REPAIR (~2010) Colonoscopy - MAC (01/25/17) Family History Mother , 63 Diabetes Heart disease Hyperlipidemia Stroke Breast cancer Father , 58 Heart disease Hyperlipidemia Alcohol abuse Sister No problems noted. Sister No problems noted. Sister No problems noted. Brother No problems noted. Maternal Grandfather Heart disease Paternal Grandfather Heart disease Maternal Grandmother Heart disease Stroke Paternal Grandmother Heart disease Stroke Son No problems noted. Son No problems noted. Daughter No problems noted. Social History (Updated 08/06/24 @ 11:29 by Mei Young) Smoking/Tobacco Use Status: Former Tobacco Use tobacco type: cigarettes Quit Date: 08/12/07 Tobacco: How many years used: 26 Second Hand Exposure: Yes Smoking risk assessment performed?: Yes Alcohol Intake: former Drug use: Occasionally Substance use type: marijuana Counseling given: No Details: Pt ingests edibles, denies inhalation of marijuana. 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 Pets and animals: Yes Pets and animals: cat(s) and farm animals Sexually active: No Do you think of yourself as: straight/heterosexual Current gender identity: male What is your relationship status?: How often do you talk on the phone with friends or family?: three or more times per week How often do you get together with friends or relatives?: three or more times per week How often do you attend tenriism or jewish services?: decline to answer Do you belong to any clubs or organized social groups?: yes Panel score (0-1 are the most socially isolated patients): 3 What type of physical activity do you participate in: walking and additional Details: PT and stretching Duration: < 15 minutes/day Frequency: daily Sophy/Rastafari: No preference Special sophy needs: No Seatbelt use: never Helmet use: Yes Helmet use: sometimes Drive intox or ride w/intox warehouse delivery driver: No Do you feel safe at home: Yes Do you feel safe in your relationship?: Yes POCUS Exam (ED) Limited Soft Tissue Exam DATE OF EXAM: 10/11/24 TIME OF EXAM: 16:15 PROVIDER THAT PERFORMED THE STUDY: Trino Henao IS THIS A REPEAT EXAM DURING THIS ENCOUNTER: No LOCATION OF EXAM: Upper extremity/right REASON FOR EXAM: Pain Exam Complete INCIDENTAL FINDINGS: No obvious fluid along flexor tendon sheath
--- NOTE | 2024-10-11 14:30 | DI.RAD_ITS ---
Exam(s) XR HAND RT COMPLETE EXAM: XR HAND RT COMPLETE CLINICAL HISTORY: Right hand pain swelling. TECHNIQUE: 2D digital imaging was performed. Three views. COMPARISON: CR RIGHT HAND COMPLETE from 12/20/2011 Scanned documents from 12/21/2011 CR XR HAND LT COMPLETE from 09/24/2023 FINDINGS: BONES: No acute fracture is present. Rounded area of lucency again noted in the 4th metacarpal. Old nonunited ulnar styloid fracture. Deformity of the distal phalanx of the little finger related to o ld fracture. JOINTS: No dislocation present. Flexion deformity of the 5th DIP joint. Degenerative changes of th e interphalangeal joints. SOFT TISSUE: Swelling at the dorsum of the hand. No abnormal gas collections. Foreign bodies noted in the ventral soft tissues which are put present on the prior exam. IMPRESSION: Soft tissue swelling. No acute bony abnormality. DATA REPOSITORY: RADIATION DOSE DELIVERED:
[2024-10-11] MEDS: Cephalexin 500 MG CAP PO (16:03)
[2024-10-11] MEDS: Cephalexin 500 MG CAP, 2 CAPS/BTL PO (16:03)
--- NOTE | 2024-10-11 16:23 | DI.VRAD_ITS ---
PROCEDURE INFORMATION: Exam: XR Right Hand Exam date and time: 10/11/2024 3:26 PM Age: 59 years old Clinical indication: Swelling; Hand; Right TECHNIQUE: Imaging protocol: Radiologic exam of the right hand. Views: 3 or more views. COMPARISON: No relevant prior studies available. FINDINGS: Bones/joints: Scattered mild degenerative disease of the interphalangeal joints. Chronic ulnar styloid fracture. No osseous erosions. Soft tissues: There is soft tissue swelling. Tiny linear soft tissue foreign bodies at the volar aspect of the head of the 2nd metacarpal bone. IMPRESSION: No acute fracture or dislocation. Dictated and Authenticated by: Blake Collazo MD. Orderin Juliano Jameson MD
== END 2024-10-11 16:13 | disposition home or self-care (01) ==
PROVIDERS: Emergency Provider Emergency Medicine; PCP Family Medicine
DX: L03.113 Cellulitis of right upper limb (principal); Z59.811 Housing instability, housed, with risk of homelessness
CPT/HCPCS: 76882; 99284; 73130; 99283

== ENCOUNTER 2024-10-20 11:59 | Outpatient (CLI) | payer OTHER, SELFPAY ==
[2024-10-20 13:00] LABS: ESR 10 mm/hr (0-20)
[2024-10-20 13:01] LABS: Abs Immature Grans 0.02 10^3/uL (0.0-0.06); Absolute Basophil Count 0.06 10^3/uL (0.0-0.2); Absolute Eosinophil Count 0.12 10^3/uL (0.0-0.7); Absolute Lymphocyte Count 1.83 10^3/uL (1.2-3.4); Absolute Monocyte Count 0.56 10^3/uL (0.1-0.8); Basophils % 0.9 %; Eosinophils % 1.8 %; HCT 45.5 % (40.0-50.0); HGB 15.3 g/dL (13.5-17.5); Immature Grans % 0.3 %; MCH 29.8 pg (27.0-33.0); MCHC 33.6 % (32.0-36.0); MCV 89 fL (80-95); MPV 10.4 fL (8.0-11.0); Monocytes % 8.2 %; Neutrophils % 61.8 %; Platelet Count 231 10^3/uL (130-400); RBC 5.14 10^6/uL (4.36-5.78); RDW 13.6 % (11.8-14.1); RDW-SD 44.4 fL; WBC 6.79 10^3/uL (4.4-10.8)
[2024-10-20 14:01] LABS: Uric Acid 4.7 mg/dL (3.5-7.2)
[2024-10-20 14:04] LABS: C-Reactive Protein < 0.50 mg/dL (<or=0.5)
== END 2024-10-20 12:00 | disposition home or self-care (01) ==
LOC: LBO 12:00
PROVIDERS: PCP Family Medicine; Referring Provider Family Medicine; Visit Provider Family Medicine
DX: M79.89 Other specified soft tissue disorders (principal)
CPT/HCPCS: 36415; 85652; 84550; 85025; 86140

== ENCOUNTER 2024-11-12 01:10 | Outpatient (CLI) | payer OTHER, SELFPAY ==
--- NOTE | 2024-11-12 06:30 | DI.MRI_ITS ---
Exam(s) MR UPPER EXTREMITY RT WO EXAM: MR UPPER EXTREMITY RT WO CLINICAL HISTORY: abnl xray; cont rt hand pain and swelling despite meds,m79.641. TECHNIQUE: Multiplanar multisequence MRI was performed. COMPARISON: Comparison x-ray is 10/11/2024. FINDINGS: BONES: There is no fracture or contusion pattern. Nonspecific mild edema seen in the anterior aspect of the head of the 4th metacarpal bone. No evidence of a fracture. There is also mild marrow edema se en in the bases of the proximal phalanges of the 4th and 5th fingers. JOINTS: The radiocarpal joint is unremarkable. The carpal joints are unremarkable. There is a very small effusion in the 5th MCP and PIP joints. There is mild arthrosis in the hand and wrist. TENDONS: Flexors: Unremarkable. Extensors: Unremarkable. MUSCLES: Unremarkable. MEDIAN NERVE: Unremarkable on this noncontrast examination. ULNAR NERVE: Unremarkable on this noncontrast examination. SOFT TISSUES: There is mild edema seen in the soft tissues on the dorsum of the wrist overlying the 3 rd, 4th and 5th metacarpal bones. No focal fluid collection is seen to suggest an abscess. This may r epresent a cellulitis. LIGAMENTS: Unremarkable. TRIANGULAR FIBROCARTILAGE: Unremarkable. OTHER: OTHER FINDINGS: There is metallic artifact in the soft tissues anterior to the head of the 2nd metaca rpal corresponding to the metallic foreign bodies seen on the x-ray of the hand from 10/11/2024. IMPRESSION: 1. Mild edema in the soft tissues on the dorsum of the wrist overlying the 3rd, 4th and 5th metacarpa l bones. This is nonspecific can be seen with a cellulitis. No focal fluid collection is seen to sugg est an abscess. 2. No evidence of a ligament or tendon tear. 3. No evidence of a fracture. 4. Small joint effusions at the 5th MCP and PIP joints. 5. Nonspecific mild marrow edema seen in the base of the proximal phalanges of the 4th and 5th finger s in the head of the 4th metacarpal. No associated fracture is seen. This might be reactive. 6. Metallic artifact is seen anterior to the head of the 2nd metacarpal corresponding to the metallic foreign body seen on the x-ray of the hand from 10/11/2024. DATA REPOSITORY:
--- NOTE | 2024-11-13 09:39 | DI.VRAD_ITS ---
PROCEDURE INFORMATION: Exam: MR Right Upper Extremity Other Than Joint Without Contrast; Hand Exam date and time: 11/12/2024 7:56 AM Age: 59 years old Clinical indication: Pain TECHNIQUE: Imaging protocol: MR of the right upper extremity without contrast. Exam focused on the hand. COMPARISON: CR XR HAND RT COMPLETE 10/11/2024 3:26 PM FINDINGS: Bones/joints: The joint spaces are normally aligned. Very small effusions involve the 5th metacarpophalangeal and proximal interphalangeal joints. Joint fluid is otherwise within physiologic limits. There is mild osteophyte formation about the radiocarpal and 1st carpometacarpal and metacarpophalangeal joints, with very mild osteophyte formation about some interphalangeal joints. A tiny high T2 signal lesion in the 4th metacarpal shaft corresponds to lucency on the radiographs, and is associated with mild endosteal scalloping, possibly a chondroid lesion. No additional osseous lesion is identified. Mild patchy marrow edema involves the 4th metacarpal head and neck anteriorly, as well as the bases of the 4th and 5th proximal phalanges. This could reflect bone bruising if there has been trauma. No discrete fracture is identified here. Chronic fracture again involves the ulnar styloid. Collateral ligaments of digits: Unremarkable. No evidence of tear. Flexor compartment tendons: Unremarkable. No evidence of tear. Extensor compartment tendons: Unremarkable. No evidence of tear. Soft tissues: There is artifact in the soft tissues along the volar aspect of the level of the 2nd metacarpal head, in association with tiny metallic foreign bodies here on the radiographs. An external marker is present dorsally at the level of the distal 4th and 5th metacarpals. There is mild underlying subcutaneous soft tissue edema, which extends proximally to the level of the bases of the 4th and 5th metacarpals and distally into the proximal aspect of the 4th finger. No discrete collection or mass is evident. IMPRESSION: 1. Mild subcutaneous soft tissue edema deep to an external marker dorsally at the level of the distal 4th and 5th metacarpals, nonspecific, could be posttraumatic or infectious. 2. Mild patchy marrow edema involving the 4th metacarpal head and neck anteriorly, and the bases of the 4th and 5th proximal phalanges, also nonspecific, potentially bone bruising if there has been trauma. 3. Very small nonspecific effusions of the 5th metacarpophalangeal and proximal interphalangeal joints. 4. Artifact related to foreign body along the volar soft tissues at the level of the 2nd metacarpal head. 5. Tiny lesion in the 4th metacarpal shaft, possibly a chondroid lesion, with lucency here on radiographs of 10/11/2024. 6. Degenerative changes as described. Dictated and Authenticated by: Jc Vallecillo MD. Orderin Simon Duong MD
== END 2024-11-12 01:30 ==
LOC: DI 01:10
PROVIDERS: PCP Family Medicine; Visit Provider Family Medicine
DX: M79.641 Pain in right hand (principal)
CPT/HCPCS: 73218

== ENCOUNTER 2025-01-06 09:44 | Outpatient (CLI) | payer OTHER, SELFPAY ==
--- NOTE | 2025-01-06 13:00 | DI.MRI_ITS ---
Exam(s) MR CERVICAL SPINE WO EXAM: MR CERVICAL SPINE WO CLINICAL HISTORY: RADICULOPATHY CERVICAL REGION M54.12 TECHNIQUE: Multiplanar multisequence MRI of the cervical spine was performed without intravenous con trast. COMPARISON: No exams were available for comparison FINDINGS: BONES: Vertebral body heights are maintained. Alignment is normal. Bone marrow signal intensity is wi thin normal limits. Hemangioma at T1. CERVICAL CORD: Craniovertebral junction is unremarkable. The cervical cord is normal size and signal intensity. SOFT TISSUES: Unremarkable. C2-3: No disc herniation or bulge is identified. No evidence of neural foraminal narrowing. No signi ficant central canal stenosis. C3-4: Posterior disc bulging, facing the CSF space, overall [id number] central canal stenosis. Uncovertebral and facet osteophytes cause severe bilateral neural foraminal narrowing. C4-5: Mild loss of disc height. Prominent posterior disc bulging. Endplate osteophytes and facet dege nerative changes combine to cause severe bilateral neural foraminal narrowing. There is moderate cent ral canal stenosis.. C5-6: Prominent disc osteophytes causing severe bilateral neural foraminal narrowing, greater on the right. Mild narrowing of the AP dimension of the central canal. C6-7: Mild disc bulging and small endplate osteophytes. No central canal stenosis. Mild right neural foraminal narrowing. C7-T1: Disc bulging and endplate osteophytes eccentric toward the right. There is severe right and mo derate left neural foraminal narrowing. No significant central canal stenosis. IMPRESSION: Multilevel disc osteophytes and facet degenerative changes combine to produce severe neural foraminal narrowing at multiple levels. There is moderate central canal stenosis at C3-4 and C4-5. DATA REPOSITORY:
== END 2025-01-06 10:04 ==
LOC: DI 09:48
PROVIDERS: PCP Family Medicine; Visit Provider Orthopaedic Surgery
DX: M48.02 Spinal stenosis, cervical region (principal)
CPT/HCPCS: 72141

== ENCOUNTER 2025-01-13 09:00 | Outpatient (CLI) | payer OTHER, SELFPAY ==
[2025-01-14 10:31] LABS: Lyme Ab w Rflx to Lyme Confirm Negative (Negative)
[2025-01-16 15:43] LABS: Anaplasma phagocytophilum Negative (Negative); B. miyamotoi PCR Negative (Negative); Babesia divergens/MO-1 Negative (Negative); Babesia duncani Negative (Negative); Babesia microti Negative (Negative); Ehrlichia chaffeensis Negative (Negative); Ehrlichia ewingii/canis Negative (Negative); Ehrlichia muris eauclairensis Negative (Negative)
== END 2025-01-13 09:01 | disposition home or self-care (01) ==
LOC: LBO 09:00
PROVIDERS: PCP Family Medicine; Visit Provider Family Medicine
DX: W57.XXXA Bitten or stung by nonvenomous insect and other nonvenomous arthropods, initial encounter (principal); T14.90XA Injury, unspecified, initial encounter
CPT/HCPCS: 36415; 87798; 86618

== ENCOUNTER 2025-04-13 09:51 | Outpatient (REF) | payer OTHER, SELFPAY ==
[2025-04-13 15:08] LABS: Cannabinoids THC Positive (Negative); METHADONE URINE SCREEN Negative (Negative)
== END 2025-04-13 09:52 | disposition home or self-care (01) ==
LOC: LOS 09:51
PROVIDERS: PCP Family Medicine; Visit Provider Family Medicine
DX: G89.4 Chronic pain syndrome (principal); Z00.00 Encounter for general adult medical examination without abnormal findings
CPT/HCPCS: 80307

== ENCOUNTER 2025-04-14 13:01 | Outpatient (CLI) | payer OTHER, SELFPAY ==
[2025-04-14 13:14] VITALS: BP 100/76; PULSE 84; RESP 18; TEMP 37.1; O2SAT 98
[2025-04-14 13:34] VITALS: PULSE 69; O2SAT 97
[2025-04-14 13:35] VITALS: BP 125/71; PULSE 67; PULSE 72; RESP 14; O2SAT 97
[2025-04-14 13:40] VITALS: PULSE 70; RESP 13; O2SAT 97
[2025-04-14 13:45] VITALS: BP 126/69; PULSE 75
--- NOTE | 2025-04-14 13:48 | DI.RAD_ITS ---
Exam(s) XR PAIN CLINIC CERVICAL SP 2V EXAM: XR PAIN CLINIC CERVICAL SP 2V CLINICAL HISTORY: DX: Cervical Radiculopathy TECHNIQUE: 2D and realtime digital imaging was performed. CONTRAST MATERIAL: Refer to procedure report. COMPARISON: No exams were available for comparison FINDINGS: Fluoroscopy was provided for Dr. Rivera during the performance of a cervical epidural steroid injection. Please refer to the procedure report for complete details. Ka,r=2.52 mGy IMPRESSION: RADIATION DOSE DELIVERED: 0.0 0.0 0
[2025-04-14] MEDS: Epidural Tray 1 EACH MC (13:53)
[2025-04-14] MEDS: Dexamethasone Sod. Phos./Pres-Free 10 MG/ML VIAL IJ (13:54)
[2025-04-14] MEDS: Omnipaque 240 MG/ML 50 ML BTL IJ (13:54)
--- NOTE | 2025-04-19 12:30 | PDOC.PAIN ---
Date of service: 04/14/25 Time of Service: 13:30 Pain Managment Procedure Note Procedure Note Procedure Note: Procedure Note Cervical Interlaminar Epidural Steroid Injection Date of Service: April 14, 2025 Patient:? Andre Saunders? Provider:? Dhruv Rivera DO, MPH Andre has been [facility] to [facility] for cervical epidural steroid injection.? Pre-operative diagnosis: Cervical Radiculopathy ICD-10 M54.12 Post-operative diagnosis: Same Pre-procedure pain: VAS= 6/10 Comments: He was previously seen in the office. Andre was interviewed and the medical record was reviewed.? There were no medical, pharmacologic, radiographic or other structural contraindications to attempting fluoroscopically guided cervical interlaminar epidural steroid injection.? Risks, potential side effects, indications, and potential benefits of the procedure were reviewed with Andre.? Questions and concerns were addressed.? After it was clear that the patient was fully informed about the procedure, the printed consent form was signed by the patient and myself.? Andre was placed in the prone position on the fluoroscopy table and automated blood pressure cuff as well as pulse oximeter was applied. A standard time-out procedure was performed. The skin entry point for entering the epidural space by a midline C7-T1 interlaminar approach was identified under fluoroscopy and marked.? The skin entry point was thoroughly cleaned with Chlorhexadine preparation and the skin was draped.? Next a mixture of 2 mls of 1% lidocaine was infiltrated into the area of the planned skin entry point and underlying subcutaneous tissues.? Next an 18 gauge Tuohy needle was placed under fluoroscopic guidance and with loss of resistance technique into the epidural space utilizing multiple AP and 55 degree contralateral fluoroscopic views.? Upon correct needle placement and loss of resistance, there were no paresthesia or return of blood or CSF through the needle. Next 1 mls of preservative-free Omnipaque 240 was injected with clear epidural spread in the A/P and oblique views. Next, a solution of 15 mg of preservative-free Dexamethasone was injected. This was followed with 1ml of preservative-free normal saline. No unusual discomfort was expressed by Andre. The needle was withdrawn without difficulty. (49 mls of Omnipaque and 5 mg of Dexamethasone was wasted) Andre was observed and was without hemodynamic, neurologic, or allergic reactions.? Fluoroscopic images were digitally archived. Andre's vital signs were stable throughout the procedure and were as recorded in the doc flowsheet by the nursing staff.? If given, dosages of intravenous drugs for anxiolysis and analgesia were documented in MAR. Follow up plans and appointments were discussed with Andre.? Post procedure instruction was given as documented in nursing documentation and having met discharge criteria, [facility] the [facility]. A retrospective review of interlaminar cervical ESIs found that approximately two-thirds of patients with symptomatic cervical radiculopathy from disc herniation were able to avoid surgery for up to 1 year with treatment. Success rate was improved with earlier injection (< 100 days from diagnosis). Jerica EL, Mame V, Torres L, Cora AN, Gino DEVI. Cervical epidural steroid injections for symptomatic disc herniations. J Spinal Disord Tech. 2006 December;19(3):183-6. ? COMMENTS: No apparent complications. Post-procedure pain: VAS= 1/10. Andre to contact [facility] as needed. If at least 50% improvement in pain and/or function for at least 3 months is achieved, this procedure can be repeated. I personally completed the entire procedure. DHRUV RIVERA DO, MPH ABPMR-subspecialty board certification in Pain Medicine [facility] Coding Conscious Sedation used for procedure: No CPT Codes: Inj Spine C/T w/Imaging - 14570 ([id number] ~G) Additional Codes: Date of Service (37803) Date of service: 04/14/25 Diagnoses: Cervical radiculopathy
== END 2025-04-14 13:02 | disposition home or self-care (01) ==
LOC: PC 13:02
PROVIDERS: PCP Family Medicine; Visit Provider Preventive Medicine Occupational Medicine
DX: M54.12 Radiculopathy, cervical region (principal)
CPT/HCPCS: 62321; 72040; J1100; Q9967

== ENCOUNTER 2025-05-21 03:18 | Outpatient (CLI) | payer OTHER, SELFPAY ==
--- NOTE | 2025-05-21 09:15 | DI.MRI_ITS ---
Exam(s) MR BRAIN WO EXAM: MR BRAIN WO CLINICAL HISTORY: b/l hand pain, frequent falls,r29.6,m48.02 TECHNIQUE: Multiplanar multisequence MRI of the brain was performed. COMPARISON: CT CT HEAD CERVICAL SPINE WO from 05/29/[address] HEAD WO from 01/21/[address] BRAIN NECK CTA from 03/26/2024 FINDINGS: VENTRICLES AND EXTRA AXIAL SPACES: Normal in size and morphology for the patient's age. The size of the ventricles and sulci are consistent with each other. MIDLINE SHIFT: None. CEREBRAL PARENCHYMA: No focus of restricted diffusion to suggest acute infarct. No space-occupying lesion identified. There is a stable old lacune in the left basal ganglia. HEMORRHAGE: None. BRAINSTEM/CEREBELLUM: Normal. CALVARIUM: Normal. VISUALIZED PARANASAL SINUSES/MASTOIDS:Clear. [employer]: Normal flow void. PITUITARY GLAND: Unremarkable. OTHER FINDINGS: None. IMPRESSION: 1. Unremarkable MRI of the brain. 2. There is no evidence of an acute infarct. DATA REPOSITORY:
== END 2025-05-21 03:38 ==
LOC: DI 03:18
PROVIDERS: PCP Family Medicine; Visit Provider Family Medicine
DX: R29.6 Repeated falls (principal); G89.29 Other chronic pain; M48.02 Spinal stenosis, cervical region
CPT/HCPCS: 70551

== ENCOUNTER 2025-07-14 11:44 | Outpatient (CLI) | payer OTHER, SELFPAY ==
[2025-07-14 11:56] LABS: HCT 45.4 % (40.0-50.0); HGB 15.4 g/dL (13.5-17.5); MCH 30.6 pg (27.0-33.0); MCHC 33.9 % (32.0-36.0); MCV 90 fL (80-95); MPV 9.7 fL (8.0-11.0); Platelet Count 237 10^3/uL (130-400); RBC 5.04 10^6/uL (4.36-5.78); RDW 12.5 % (11.8-14.1); RDW-SD 41.3 fL; WBC 7.16 10^3/uL (4.4-10.8)
[2025-07-14 14:40] LABS: Hemoglobin A1C 5.3 % (<5.7)
[2025-07-14 14:47] LABS: ALT 35 U/L (10-49); AST 26 U/L (<34); Albumin 4.3 g/dL (3.2-5.0); Alkaline Phosphatase 82 U/L (46-116); Anion Gap 9.3 mmol/L (3-11); BUN 26 mg/dL (9-23); Bilirubin, Total 0.40 mg/dL (0.2-1.2); CO2 25.7 mmol/L (20.0-31.0); Calcium 9.0 mg/dL (8.3-10.6); Chloride 109 mmol/L (98-107); Cholesterol 160 mg/dL (<200); Glucose 99 mg/dL (74-106); HDL Cholesterol 43 mg/dL (>40); Potassium 4.5 mmol/L (3.5-5.1); Sodium 144 mmol/L (136-145); Total Protein 6.8 g/dL (5.7-8.2)
[2025-07-14 14:50] LABS: TSH (W/Ref FT4) 0.36 uIU/mL (0.55-4.78)
== END 2025-07-14 11:45 | disposition home or self-care (01) ==
LOC: LBO 11:44
PROVIDERS: PCP Family Medicine; Visit Provider Family Medicine
DX: Z00.00 Encounter for general adult medical examination without abnormal findings (principal); E03.9 Hypothyroidism, unspecified; I10 Essential (primary) hypertension; E11.9 Type 2 diabetes mellitus without complications
CPT/HCPCS: 36415; 80053; 80061; 85027; 83036; 84439; 84443